=== PATIENT | female | born 1935 | race Caucasian/White ===

== ENCOUNTER 2018-01-21 11:12 | Emergency (ER) | payer OTHER, SELFPAY ==
--- NOTE | 2018-01-21 11:19 | DI.RAD.S_ITS ---
PROCEDURE: XR WRIST RT MIN 3V INDICATIONS: pain. denies injury TECHNIQUE: 4 views of the wrist were acquired. COMPARISON: None. FINDINGS: Bones: The bone mineralization is diffusely decreased. There is no displaced fracture or dislocation. Prominent degenerative changes of the wrist are most pronounced involving the basal joint of the thumb. Intra-articular joint body within the distal radioulnar joint appears to be present. Soft tissues: No suspicious soft tissue calcifications. IMPRESSION: 1. No acute fracture of the right wrist. 2. Prominent degenerative changes of the wrist. Dictated by: Jean Krishna M.D. on 01/21/2018 at 10:53 Approved by: Jean Krishna M.D. on 01/21/2018 at 10:54
[2018-01-21 11:20] VITALS: PULSE 73; RESP 15; TEMP 36.6; O2SAT 99; BMI 25.2
--- NOTE | 2018-01-21 13:33 | ED_ITS ---
HPI - Extremity Injury (Upper) <NEETU Reddy-BC - Last Filed: 01/21/18 23:00> General Chief Complaint: Extremity Injury, Upper Stated Complaint: RIGHT ARM PAIN Time Seen by Provider: 01/21/18 14:00 Source: patient Mode of arrival: ambulatory Limitations: no limitations History of Present Illness HPI narrative: Patient is slightly stated that she came to the emergency department for right wrist pain. She states she believes it is from the computer. She is concerned about carpal tunnel syndrome. She says that moving her wrist hurts, that hurts to press it. She does complain of some weird sensation in her middle finger of her right hand. She denies any trauma. Patient then brought up the fact that she felt really weak and dizzy earlier, with some nausea. She states she called her primary care office who suggested she take aspirin and to be evaluated in the emergency department. She denied any chest pain, shortness of breath, fever, vomiting, diarrhea. She states she no longer feels weak and dizzy. She denies any fevers. She denies any confusion or slurred speech. Her states she is acting normally. Related Data Home Medications Medication Instructions Recorded Confirmed loratadine [Claritin] 10 mg PO QDAYP PRN #0 02/25/17 Previous Rx's Medication Instructions Recorded fluticasone 1 spray INTRANASAL BID #16 gm 06/19/16 terbinafine HCl [Lamisil AT] 1 kamaljit TOPICAL Q DAY #12 gm 04/08/17 terbinafine HCl [Lamisil] 250 mg PO QDAY #90 tab 04/08/17 Allergies Allergy/AdvReac Type Severity Reaction Status Date / Time Sulfa (Sulfonamide Allergy Unknown Verified 01/21/18 11:20 Antibiotics) Review of Systems <NEETU Reddy-BC - Last Filed: 01/21/18 23:00> Review of Systems GENERAL: Denies chills, fatigue, malaise, fever, sweats. HEENT: Denies sinus pain, ear pain, sore throat, difficulty swallowing, dizziness. RESPIRATORY: Denies dyspnea, cough, wheezing, hemoptysis, sputum. CARDIOVASCULAR: Denies chest pain, palpitations, orthopnea, edema, GASTROINTESTINAL: See HPI : Denies dysuria, frequency, incontinence, hematuria, urinary retention. MUSCULOSKELETAL: See HPI SKIN: Denies rash, skin lesions, or other NEUROLOGIC: See HPI PSYCHIATRIC: No concerning psychosocial issues. 12 point review of systems is negative except for those stated above Exam <KERRIE ReddyBC - Last Filed: 01/21/18 23:00> Narrative Exam Narrative: GENERAL: This is a well-nourished, well-developed patient, lying on stretcher the at bedside HEAD: Atraumatic. Normocephalic. No temporal or scalp tenderness. EYES: Pupils equal round and reactive. Extraocular motions intact. No scleral icterus. No injection or drainage. ENT: Nose without bleeding, purulent drainage or septal hematoma. Throat without erythema, tonsillar hypertrophy or exudate. Uvula midline. Airway patent. NECK: Trachea midline. No JVD or lymphadenopathy. Supple, nontender, no meningeal signs. CARDIOVASCULAR: Regular rate and rhythm without murmurs, gallops, or rubs. RESPIRATORY: Clear to auscultation. Breath sounds equal bilaterally. No wheezes , rales, or rhonchi. GASTROINTESTINAL: Abdomen soft, non-tender, nondistended. No hepato-splenomegaly , or palpable masses. No guarding. EXTREMITIES: Right wrist pain to palpation. Patient has pain flexing and extending wrist. Right radial pulse intact. Patient is unable to perform test for Phalen's sign and states it hurts too much to hold her hand up. BACK: Nontender without deformity or crepitance. No flank tenderness. NEURO: AOx3. No slurred speech. Cranial nerves grossly intact. Strength equal upper and lower extremities bilaterally. Using all extremities equally. SKIN: No rash or erythema. No erythema ecchymosis or wound noted right wrist. Initial Vital Signs Initial Vital Signs: Vital Signs Temperature 97.9 F 01/21/18 11:20 Pulse Rate 73 01/21/18 11:20 Respiratory Rate 15 01/21/18 11:20 Pulse Oximetry 99 01/21/18 11:20 <Marie Rodriguez DO - Last Filed: 01/22/18 08:42> Initial Vital Signs Initial Vital Signs: Vital Signs Temperature 97.9 F 01/21/18 11:20 Pulse Rate 73 01/21/18 11:20 Respiratory Rate 15 01/21/18 11:20 Pulse Oximetry 99 01/21/18 11:20 Course <KERRIE ReddyBC - Last Filed: 01/21/18 23:00> Additional Information: I checked on the patient several times throughout her emergency department stay. Patient appeared very upset that I could not perform further imaging of her wrist in the emergency department. Orders Ordered: Discontinued Medications Sodium Chloride (Normal Saline 0.9%) 1,000 mls @ 150 mls/hr IV CONT INNA Last Admin: 01/21/18 14:53 Dose: 150 mls/hr Vital Signs - 8 hr 01/21/18 11:20 01/21/18 13:50 Temperature 97.9 F Pulse Rate 73 78 Respiratory Rate 15 Blood Pressure [Left Arm] 134/80 Pulse Oximetry 99 <Marie Rodriguez DO - Last Filed: 01/22/18 08:42> Orders Ordered: Discontinued Medications Sodium Chloride (Normal Saline 0.9%) 1,000 mls @ 150 mls/hr IV CONT INNA Last Admin: 01/21/18 14:53 Dose: 150 mls/hr Vital Signs - 8 hr 01/21/18 11:20 01/21/18 13:50 Temperature 97.9 F Pulse Rate 73 78 Respiratory Rate 15 Blood Pressure [Left Arm] 134/80 Pulse Oximetry 99 MDM - Extremity Injury (Upper) <KERRIE ReddyBC - Last Filed: 01/21/18 23:00> Differential Diagnosis Differential diagnosis: Likely sprain and strain of wrist and fracture of wrist Lab Data Result diagrams: 01/21/18 14:45 01/21/18 14:45 Lab Results 01/21/18 01/21/18 01/21/18 Range/Units 14:45 14:45 14:45 WBC 10.7 (4.5-11.0) X10^3/uL RBC 4.44 (4.0-5.2) X10^6/uL Hgb 13.5 (12.0-16.0) g/dL Hct 40.2 (36-46) % MCV 90.6 (80-100) fL MCH 30.3 (26-34) PG MCHC 33.5 (30-36) % RDW 14.5 (11.6-14.8) % Plt Count 182 (150-400) X10^3/uL Neut % (Auto) 79.2 H (50-75) % Lymph % (Auto) 14.0 L (25-40) % [place] % (Auto) 5.1 (3-14) % Eos % (Auto) 0.5 L (2-4) % Baso % (Auto) 1.2 (0-2) % Neut # (Auto) 8400 H (4051-6042) /uL PT 10.8 (10.1-12.7) SECONDS INR 1.0 (0.9-1.3) Sodium 146 H (137-145) mmol/L Potassium 4.2 (3.4-5.1) mmol/L Chloride 108 H (98-107) mmol/L Carbon Dioxide 28 (22-32) mmol/L BUN 15 (7-17) mg/dL Creatinine 0.60 (0.52-1.04) mg/dL Estimated GFR > 60.0 (>60) mL/min BUN/Creatinine Ratio 25.0 H (6-22) Glucose 116 H (80-110) mg/dL Calcium 9.4 (8.4-10.2) mg/dL Magnesium 2.3 (1.6-2.3) mg/dL Total Bilirubin 0.6 (0.2-1.3) mg/dL AST 20 (14-36) IU/L ALT 20 (9-52) IU/L Alkaline Phosphatase 63 (38-126) U/L Total Creatine Kinase 44 (30-135) U/L Troponin I < 0.012 (0.01-0.034) ng/mL Total Protein 7.3 (6.3-8.2) g/dL Albumin 4.2 (3.5-5.0) g/dL Globulin 3.1 (1.7-4.1) g/dL Albumin/Globulin Ratio 1.4 (1.0-2.8) 01/21/18 Range/Units 17:27 WBC (4.5-11.0) X10^3/uL RBC (4.0-5.2) X10^6/uL Hgb (12.0-16.0) g/dL Hct (36-46) % MCV (80-100) fL MCH (26-34) PG MCHC (30-36) % RDW (11.6-14.8) % Plt Count (150-400) X10^3/uL Neut % (Auto) (50-75) % Lymph % (Auto) (25-40) % [place] % (Auto) (3-14) % Eos % (Auto) (2-4) % Baso % (Auto) (0-2) % Neut # (Auto) (9059-1296) /uL PT (10.1-12.7) SECONDS INR (0.9-1.3) Sodium (137-145) mmol/L Potassium (3.4-5.1) mmol/L Chloride (98-107) mmol/L Carbon Dioxide (22-32) mmol/L BUN (7-17) mg/dL Creatinine (0.52-1.04) mg/dL Estimated GFR (>60) mL/min BUN/Creatinine Ratio (6-22) Glucose (80-110) mg/dL Calcium (8.4-10.2) mg/dL Magnesium (1.6-2.3) mg/dL Total Bilirubin (0.2-1.3) mg/dL AST (14-36) IU/L ALT (9-52) IU/L Alkaline Phosphatase (38-126) U/L Total Creatine Kinase (30-135) U/L Troponin I < 0.012 (0.01-0.034) ng/mL Total Protein (6.3-8.2) g/dL Albumin (3.5-5.0) g/dL Globulin (1.7-4.1) g/dL Albumin/Globulin Ratio (1.0-2.8) Imaging Data wrist xray: Radiologist's impression: [address] [address] XRay Report Signed Patient: Jossy Arcos MR#: [id number] : 1935 Acct:[id number] Age/Sex: 82 / F Date of Service: 01/21/18 Loc: ED Accession Number: [id number] Procedure: XR wrist RT min 3V Ordering Provider: Marie Rodriguez D.O. PROCEDURE: XR WRIST RT MIN 3V INDICATIONS: pain. denies injury TECHNIQUE: 4 views of the wrist were acquired. COMPARISON: None. FINDINGS: Bones: The bone mineralization is diffusely decreased. There is no displaced fracture or dislocation. Prominent degenerative changes of the wrist are most pronounced involving the basal joint of the thumb. Intra-articular joint body within the distal radioulnar joint appears to be present. Soft tissues: No suspicious soft tissue calcifications. IMPRESSION: 1. No acute fracture of the right wrist. 2. Prominent degenerative changes of the wrist. Dictated by: Jean Krishna M.D. on 01/21/2018 at 10:53 Approved by: Jean Krishna M.D. on 01/21/2018 at 10:54 CT scan - head: Radiologist's impression: [place] [address] CT Scan Report Signed Patient: Jossy Arcos MR#: [id number] : 1935 Acct:[id number] Age/Sex: 82 / F Date of Service: 01/21/18 Loc: ED Accession Number: [id number] Procedure: CT head/brain wo con [facility] CT HEAD/BRAIN WO CON INDICATIONS: severe dizziness TECHNIQUE: Noncontrast 4.5 mm thick angled axial sections acquired from the foramen magnum to the vertex, with coronal and sagittal reformats. For radiation dose reduction, the following was used: automated exposure control, adjustment of mA and/or kV according to patient size. COMPARISON: None. FINDINGS: Image quality: Excellent. CSF spaces: Basal cisterns are patent. No extra-axial fluid collections. The ventricles are symmetric in size and shape. There is [id number] cerebral volume loss, with resultant ventricular and sulcal prominence. Brain: No intracranial hemorrhage, mass, or mass effect. There are subcortical , periventricular and deep white matter hypodensities consistent with mild-to- moderate chronic small vessel ischemic changes. There is intracranial internal carotid artery atherosclerosis. Skull and face: Calvarium and visualized facial bones appear intact, without suspicious lesions. Sinuses: Visualized sinuses and mastoids are clear. IMPRESSION: 1. No acute intracranial abnormality. 2. Mild to moderate chronic white matter small vessel ischemic changes and cerebral volume loss. Dictated by: Manjeet Kunz M.D. on 01/21/2018 at 14:07 Approved by: Manjeet Kunz M.D. on 01/21/2018 at 14:26 ECG Data Attestation: I personally reviewed and interpreted this ECG as follows: Interpretation: Sinus rhythm. Heart rate 71. No ectopy noted. No ST elevation or depression. MDM Narrative Medical decision making narrative: Patient presented with chief complaint of wrist pain. She also brought up an episode of dizziness weakness earlier today. Her x-ray of her wrist show no fracture. Thus she had a thorough set of lab work done including CBC, CMP, and 2 sets of troponins. Everything came back grossly within normal limits. I did an EKG to evaluate her cardiac function head CT due to her weakness and dizziness earlier. These came back normal. I wonder if her dizziness earlier was due to the pain of her wrist, or possible vasovagal reaction due to a hot shower. Her x-ray of her wrist illustrated degenerative changes. It is difficult to evaluate for carpal tunnel as she does not tolerate bedside evaluations for it. We attempted to place her in a brace, though she took it off due to discomfort. Her descriptions of the symptoms are vague. I encouraged rest eyes compression and elevation. I discussed follow up with her primary care provider for further workup. I discussed at length with the patient follow up if worsening, no improvement, any acute concerns such as concern for stroke or heart attack. Patient had no questions or concerns upon discharge and ambulated steadily to the exit <Marie Rodriguez, DO - Last Filed: 01/22/18 08:42> Lab Data Lab Results 01/21/18 01/21/18 01/21/18 Range/Units 14:45 14:45 14:45 WBC 10.7 (4.5-11.0) X10^3/uL RBC 4.44 (4.0-5.2) X10^6/uL Hgb 13.5 (12.0-16.0) g/dL Hct 40.2 (36-46) % MCV 90.6 (80-100) fL MCH 30.3 (26-34) PG MCHC 33.5 (30-36) % RDW 14.5 (11.6-14.8) % Plt Count 182 (150-400) X10^3/uL Neut % (Auto) 79.2 H (50-75) % Lymph % (Auto) 14.0 L (25-40) % [place] % (Auto) 5.1 (3-14) % Eos % (Auto) 0.5 L (2-4) % Baso % (Auto) 1.2 (0-2) % Neut # (Auto) 8400 H (1618-6316) /uL PT 10.8 (10.1-12.7) SECONDS INR 1.0 (0.9-1.3) Sodium 146 H (137-145) mmol/L Potassium 4.2 (3.4-5.1) mmol/L Chloride 108 H (98-107) mmol/L Carbon Dioxide 28 (22-32) mmol/L BUN 15 (7-17) mg/dL Creatinine 0.60 (0.52-1.04) mg/dL Estimated GFR > 60.0 (>60) mL/min BUN/Creatinine Ratio 25.0 H (6-22) Glucose 116 H (80-110) mg/dL Calcium 9.4 (8.4-10.2) mg/dL Magnesium 2.3 (1.6-2.3) mg/dL Total Bilirubin 0.6 (0.2-1.3) mg/dL AST 20 (14-36) IU/L ALT 20 (9-52) IU/L Alkaline Phosphatase 63 (38-126) U/L Total Creatine Kinase 44 (30-135) U/L Troponin I < 0.012 (0.01-0.034) ng/mL Total Protein 7.3 (6.3-8.2) g/dL Albumin 4.2 (3.5-5.0) g/dL Globulin 3.1 (1.7-4.1) g/dL Albumin/Globulin Ratio 1.4 (1.0-2.8) 01/21/18 Range/Units 17:27 WBC (4.5-11.0) X10^3/uL RBC (4.0-5.2) X10^6/uL Hgb (12.0-16.0) g/dL Hct (36-46) % MCV (80-100) fL MCH (26-34) PG MCHC (30-36) % RDW (11.6-14.8) % Plt Count (150-400) X10^3/uL Neut % (Auto) (50-75) % Lymph % (Auto) (25-40) % [place] % (Auto) (3-14) % Eos % (Auto) (2-4) % Baso % (Auto) (0-2) % Neut # (Auto) (1503-7894) /uL PT (10.1-12.7) SECONDS INR (0.9-1.3) Sodium (137-145) mmol/L Potassium (3.4-5.1) mmol/L Chloride (98-107) mmol/L Carbon Dioxide (22-32) mmol/L BUN (7-17) mg/dL Creatinine (0.52-1.04) mg/dL Estimated GFR (>60) mL/min BUN/Creatinine Ratio (6-22) Glucose (80-110) mg/dL Calcium (8.4-10.2) mg/dL Magnesium (1.6-2.3) mg/dL Total Bilirubin (0.2-1.3) mg/dL AST (14-36) IU/L ALT (9-52) IU/L Alkaline Phosphatase (38-126) U/L Total Creatine Kinase (30-135) U/L Troponin I < 0.012 (0.01-0.034) ng/mL Total Protein (6.3-8.2) g/dL Albumin (3.5-5.0) g/dL Globulin (1.7-4.1) g/dL Albumin/Globulin Ratio (1.0-2.8) Discharge Plan Departure Patient Disposition: Home Clinical Impression: Acute wrist pain, Weakness Discharge Date/Time: 01/21/18 18:41 Interventions: ED Discharge Assessment Last Done: 01/21/18 18:40 Instructions: How To Perform RICE (Rest, Ice, Compress, Elevate), DI for Wrist Pain, DI for Dizziness-Nonvertigo Activity Restrictions/Additional Instructions: I would like you to follow up with primary care provider in the next few days. All of your lab work came back good today. Your electrolytes are good. Your heart enzymes came back good twice. Your head CT came back with no acute concerns. Regarding her wrist, I would like you to use rest ice compression and elevation. Your x-ray came back negative for any acute fractures. 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 I would like you to use [id number] pain medication as needed and able. Please follow-up with the primary care provider for worsening or no improvement. Come back to the emergency department immediately for any concerns of stroke or heart attack. Prescriptions: No Action fluticasone 16 GM spray,suspension 1 spray Intranasal BID Qty: 16 RF: 12 loratadine [Claritin] 10 MG tablet 10 mg PO QDAYP PRNQty: 0 RF: 0 terbinafine HCl [Lamisil] 250 MG tablet 250 mg PO QDAY Qty: 90 RF: 0 terbinafine HCl [Lamisil AT] 1 % cream 1 kamaljit Topical Q DAY Qty: 12 RF: 0 <Marie Rodriguez, - Last Filed: 01/22/18 08:42> Cosign ED Attending Cosignature Attestation: I was immediately available in the department for consultation. Documentation has been reviewed. I agree with assessment and plan.
[2018-01-21 13:50] VITALS: BP 134/80; PULSE 78
--- NOTE | 2018-01-21 14:20 | DI.CT.S_ITS ---
PROCEDURE: CT HEAD/BRAIN WO CON INDICATIONS: severe dizziness TECHNIQUE: Noncontrast 4.5 mm thick angled axial sections acquired from the foramen magnum to the vertex, with coronal and sagittal reformats. For radiation dose reduction, the following was used: automated exposure control, adjustment of mA and/or kV according to patient size. COMPARISON: None. FINDINGS: Image quality: Excellent. CSF spaces: Basal cisterns are patent. No extra-axial fluid collections. The ventricles are symmetric in size and shape. There is [id number] cerebral volume loss, with resultant ventricular and sulcal prominence. Brain: No intracranial hemorrhage, mass, or mass effect. There are subcortical, periventricular and deep white matter hypodensities consistent with [id number] chronic small vessel ischemic changes. There is intracranial internal carotid artery atherosclerosis. Skull and face: Calvarium and visualized facial bones appear intact, without suspicious lesions. Sinuses: Visualized sinuses and mastoids are clear. IMPRESSION: 1. No acute intracranial abnormality. 2. Mild to moderate chronic white matter small vessel ischemic changes and cerebral volume loss. Dictated by: Manjeet Kunz M.D. on 01/21/2018 at 14:07 Approved by: Manjeet Kuzn M.D. on 01/21/2018 at 14:26
[2018-01-21] MEDS: SODIUM CHLORIDE 0.9% 1,000 ML 150 ML IV (14:53)
[2018-01-21 14:56] LABS: Add Manual Diff / Slide Review NO; Basophils Percent Auto 1.2 % (0-2); Eosinophils Percent Auto 0.5 % (2-4); Hematocrit 40.2 % (36-46); Hemoglobin 13.5 g/dL (12.0-16.0); Mean Corpuscular HGB Conc 33.5 % (30-36); Mean Corpuscular Hemoglobin 30.3 PG (26-34); Mean Corpuscular Volume 90.6 fL (80-100); Monocytes Percent Auto 5.1 % (3-14); Neutrophils Absolute Auto 8400 /uL (3000-5900); Neutrophils Percent Auto 79.2 % (50-75); Platelet Count 182 X10^3/uL (150-400); Red Blood Cell Count 4.44 X10^6/uL (4.0-5.2); Red Cell Distribution Width 14.5 % (11.6-14.8); White Blood Cell Count 10.7 X10^3/uL (4.5-11.0)
[2018-01-21 15:03] LABS: Prothrombin Time 10.8 SECONDS (10.1-12.7)
[2018-01-21 15:08] LABS: Alanine Aminotransferase 20 IU/L (9-52); Albumin 4.2 g/dL (3.5-5.0); Albumin Globulin Ratio 1.4 (1.0-2.8); Alkaline Phosphatase 63 U/L (38-126); Aspartate Aminotransferase 20 IU/L (14-36); Bilirubin Total 0.6 mg/dL (0.2-1.3); Blood Urea Nitrogen 15 mg/dL (7-17); Calcium 9.4 mg/dL (8.4-10.2); Carbon Dioxide 28 mmol/L (22-32); Chloride 108 mmol/L (98-107); Creatine Kinase 44 U/L (30-135); Estimated Glomerular Filt Rate > 60.0 mL/min (>60); Globulin 3.1 g/dL (1.7-4.1); Glucose 116 mg/dL (80-110); HEMOLYSIS 43 (0-50); Magnesium 2.3 mg/dL (1.6-2.3); Potassium 4.2 mmol/L (3.4-5.1); Sodium 146 mmol/L (137-145); Total Protein 7.3 g/dL (6.3-8.2)
[2018-01-21 15:25] LABS: Troponin I < 0.012 ng/mL (0.01-0.034)
[2018-01-21 18:06] LABS: Troponin I < 0.012 ng/mL (0.01-0.034)
--- NOTE | 2018-02-08 07:29 | PC.NURSE ---
LATE NOTE: iv fluid infusion stop time 1830 600ml infused.
== END 2018-01-21 18:41 | disposition home or self-care (01) ==
PROVIDERS: Emergency Provider Nurse Practitioner Family; PCP Family Medicine
DX: M25.531 Pain in right wrist (principal); R53.1 Weakness; R42 Dizziness and giddiness
CPT/HCPCS: 70450; 73110; 80053; 82550; 82553; 83735; 84484; 85025; 85610; 93005; 93010; 96360; 96361; 99282; 99285

== ENCOUNTER → 2018-09-08 11:02 | Outpatient (CLI) | payer OTHER, SELFPAY ==
[2018-09-08 11:54] LABS: Add Manual Diff / Slide Review NO; Basophils Absolute Auto 100 /uL (0-100); Basophils Percent Auto 0.8 % (0-2); Eosinophils Absolute Auto 100 /uL (0-450); Eosinophils Percent Auto 1.1 % (2-4); Hemoglobin 13.4 g/dL (12.0-16.0); Lymphocytes Absolute Auto 1900 /uL (1100-4500); Lymphocytes Percent Auto 25.3 % (25-40); Mean Corpuscular HGB Conc 32.8 % (30-36); Mean Corpuscular Hemoglobin 29.6 PG (26-34); Mean Corpuscular Volume 90.5 fL (80-100); Monocytes Absolute Auto 500 /uL (0-900); Monocytes Percent Auto 6.2 % (3-14); Neutrophils Absolute Auto 5000 /uL (1500-7000); Neutrophils Percent Auto 66.6 % (50-75); Platelet Count 201 X10^3/uL (150-400); Red Blood Cell Count 4.53 X10^6/uL (4.0-5.2); Red Cell Distribution Width 14.3 % (11.6-14.8); White Blood Cell Count 7.5 X10^3/uL (4.5-11.0)
[2018-09-08 13:07] LABS: Vitamin B12 229 pg/mL (239-931)
== END ==
PROVIDERS: PCP Family Medicine; Visit Provider Nurse Practitioner
DX: R53.83 Other fatigue (principal)
CPT/HCPCS: 36415; 82607; 85025

== ENCOUNTER → 2018-10-18 12:01 | Outpatient (CLI) | payer OTHER, SELFPAY ==
[2018-10-18 14:13] LABS: Vitamin B12 404 pg/mL (239-931)
[2018-10-18 17:27] LABS: TSH w/ Reflex to FT4 0.77 uIU/mL (0.47-4.68)
== END ==
PROVIDERS: PCP Nurse Practitioner; Visit Provider Nurse Practitioner
DX: R53.83 Other fatigue (principal)
CPT/HCPCS: 36415; 82607; 84443

== ENCOUNTER → 2019-01-16 12:15 | Outpatient (CLI) | payer OTHER, SELFPAY ==
[2019-01-16 12:42] LABS: Add Manual Diff / Slide Review NO; Basophils Absolute Auto 100 /uL (0-100); Eosinophils Absolute Auto 100 /uL (0-450); Eosinophils Percent Auto 0.9 % (2-4); Hemoglobin 13.7 g/dL (12.0-16.0); Lymphocytes Absolute Auto 1900 /uL (1100-4500); Lymphocytes Percent Auto 26.3 % (25-40); Mean Corpuscular HGB Conc 33.5 % (30-36); Mean Corpuscular Hemoglobin 30.1 PG (26-34); Mean Corpuscular Volume 89.8 fL (80-100); Monocytes Absolute Auto 500 /uL (0-900); Monocytes Percent Auto 7.1 % (3-14); Neutrophils Absolute Auto 4700 /uL (1500-7000); Neutrophils Percent Auto 64.7 % (50-75); Platelet Count 203 X10^3/uL (150-400); Red Blood Cell Count 4.57 X10^6/uL (4.0-5.2); Red Cell Distribution Width 14.6 % (11.6-14.8); White Blood Cell Count 7.2 X10^3/uL (4.5-11.0)
[2019-01-16 12:51] LABS: Alanine Aminotransferase 13 IU/L (9-52); Albumin 4.3 g/dL (3.5-5.0); Albumin Globulin Ratio 1.5 (1.0-2.8); Alkaline Phosphatase 75 U/L (38-126); Aspartate Aminotransferase 15 IU/L (14-36); BUN Creatinine Ratio 21.4 (6-22); Bilirubin Total 0.6 mg/dL (0.2-1.3); Blood Urea Nitrogen 15 mg/dL (7-17); Calcium 9.6 mg/dL (8.4-10.2); Carbon Dioxide 27 mmol/L (22-32); Chloride 105 mmol/L (98-107); Estimated Glomerular Filt Rate > 60.0 mL/min (>60); Globulin 2.9 g/dL (1.7-4.1); Glucose 92 mg/dL (80-110); HEMOLYSIS < 15 (0-50); Potassium 4.8 mmol/L (3.4-5.1); Sodium 141 mmol/L (137-145); Total Protein 7.2 g/dL (6.3-8.2)
--- NOTE | 2019-01-16 13:32 | DI.CT.S_ITS ---
PROCEDURE: CT ABDOMEN PELVIS W CON INDICATIONS: H/O diverticulosis, colectomy TECHNIQUE: After the administration of intravenous contrast, 5 mm thick sections acquired from the diaphragm to the symphysis. 5 mm coronal and sagittal reformats were acquired. For radiation dose reduction, the following was used: automated exposure control, adjustment of mA and/or kV according to patient size. COMPARISON: [facility], CT, ABDOMEN/PELVIS WITH CONTRAST, 01/12/2017, 14:21. [facility], CT, ABDOMEN/PELVIS WITH CONTRAST, 07/18/2015, 12:26. FINDINGS: Image quality: Excellent. ABDOMEN: Lung bases: Lung bases are clear. Heart size is normal. Solid organs: Liver is normal in size and enhancement. Gallbladder appears normal. Biliary system is non dilated. Pancreas enhances normally. Spleen is normal in size and enhancement. No adrenal nodules. Kidneys demonstrate normal size and enhancement, without hydronephrosis. Peritoneum and bowel: Bowel loops demonstrate normal wall thickness and caliber. No free fluid or air. Nodes and vessels: No retroperitoneal or mesenteric adenopathy by size criteria. Aorta and inferior vena cava are normal in size. Miscellaneous: No ventral hernias. PELVIS: Genitourinary: Bladder wall thickness is normal. Miscellaneous: No inguinal hernias or adenopathy. Bones: No suspicious bony lesions. No vertebral body compression fractures. IMPRESSION: Mild diverticulosis left lower quadrant. No acute diverticulitis found. Source of reported left lower quadrant pain is not found. Dictated by: Cricket Varela M.D. on 01/16/2019 at 13:58 Approved by: Cricket Varela M.D. on 01/16/2019 at 13:58
== END ==
PROVIDERS: PCP Nurse Practitioner; Visit Provider Registered Nurse
DX: K57.90 Diverticulosis of intestine, part unspecified, without perforation or abscess without bleeding (principal); R10.84 Generalized abdominal pain
CPT/HCPCS: 36415; 74177; 80053; 85025; Q9967

== ENCOUNTER → 2019-02-08 15:28 | Outpatient (CLI) | payer OTHER, SELFPAY ==
--- NOTE | 2019-02-08 15:31 | DI.RAD.S_ITS ---
PROCEDURE: XR ABDOMEN 1V INDICATIONS: abdominal pain, nausea TECHNIQUE: One view of the abdomen acquired. COMPARISON: None. FINDINGS: Surgical changes and devices: None. Bowel: Bowel gas pattern is nonobstructive. Mild fecal stasis in the colon is seen. No gross free air. Soft tissues: No suspicious abdominal calcifications. Visualized solid organ contours appear normal in size. Bones: No suspicious bony lesions. IMPRESSION: Mild constipation. No gross free air. Dictated by: Tung Rutledge M.D. on 02/08/2019 at 16:18 Approved by: Tung Rutledge M.D. on 02/08/2019 at 16:19
== END ==
PROVIDERS: PCP Nurse Practitioner; Visit Provider Hospitalist
DX: R10.9 Unspecified abdominal pain (principal); K59.00 Constipation, unspecified
CPT/HCPCS: 74018

== ENCOUNTER 2019-02-15 09:37 | Emergency (ER) | payer OTHER, SELFPAY ==
[2019-02-15 09:54] VITALS: BP 148/68; PULSE 80; RESP 15; TEMP 36.5; O2SAT 98; BMI 24.7
--- NOTE | 2019-02-15 09:57 | ED_ITS ---
HPI - Abdominal Pain General Chief Complaint: Abdominal Pain Stated Complaint: nurse advised to come/pain at night/part blockage Time Seen by Provider: 02/15/19 09:56 Source: patient Mode of arrival: Ambulatory Limitations: no limitations History of Present Illness HPI narrative: Patient is an 84-year-old female presenting all upon request from a nursing hotline. She has had ongoing left upper quadrant pain for about 6 weeks. She has had bowel movements but says that they are becoming pencil thin. She feels nauseous at times no vomiting. The pain wakes her up at night. She was seen evaluated by her PCP last week she had an x-ray which showed mild constipation. She had a CT 01/16/2019 that showed mild diverticulosis. She was referred to General surgery for colonoscopy however they refused recommended she go to [facility]. Patient is very confused by the system she is wanting a colonoscopy today. The nursing hotline told her to come to the ER. She denies any worsening left sided pain she continues to have bowel movements with MiraLax she is not actively vomiting she is tolerating fluids she is afebrile. She is refusing any blood work or repeat CT. MD complaint: abdominal pain Onset (ago): week(s) (6) Related Data Home Medications Medication Instructions Recorded Confirmed loratadine [Claritin] 10 mg PO QDAYP PRN #0 02/25/17 02/15/19 cyanocobalamin (vitamin B-12) 2,500 mcg PO DAILY 01/16/19 02/15/19 2,500 mcg tablet naproxen sodium [Aleve] 220 mg PO BID PRN 02/15/19 02/15/19 polyethylene glycol 3350 [Miralax] 17 g PO DAILY 02/15/19 02/15/19 Previous Rx's Medication Instructions Recorded fluticasone propionate 1 spray INTRANASAL BID #16 gm 06/19/16 cyanocobalamin (vitamin B-12) 1,000 mcg IM QMONTH #1 ml 09/09/18 1,000 mcg/mL injection solution Allergies Allergy/AdvReac Type Severity Reaction Status Date / Time Sulfa (Sulfonamide Allergy Unknown Verified 02/15/19 09:54 Antibiotics) Review of Systems Review of Systems Narrative: GENERAL: Denies chills, fatigue, malaise, fever, sweats, travel HEENT: Denies sinus pain, ear pain, sore throat, difficulty swallowing, neck pain RESPIRATORY: Denies dyspnea, cough, wheezing, hemoptysis, sputum. CARDIOVASCULAR: Denies chest pain, palpitations, orthopnea, edema GASTROINTESTINAL: See HPI : Denies dysuria, frequency, incontinence, hematuria, urinary retention, flank pain. MUSCULOSKELETAL: Denies weakness, joint pain, or bony pain SKIN: No rash, no erythema, no pruritus NEUROLOGIC: Denies weakness, dizziness, headache, numbness, change in speech, confusion PSYCHIATRIC: No concerning psychosocial issues. 12 point review of systems is negative except for those stated above and HPI [facility]LY [facility] Medical History Acquired absence of other specified parts of digestive tract (Acute) Allergic rhinitis (Acute) Chicken pox (Resolved) Colon polyps (Chronic) Diverticular disease (Chronic) Family history of diabetes mellitus (Acute) Family history of malignant neoplasm of bladder (Acute) Family history of malignant neoplasm of trachea, bronchus and lung (Acute) Family history of other mental and behavioral disorders (Acute) History of recurrent ear infection (Chronic) Major depressive disorder, single episode (Acute) Measles (Resolved) Osteopenia (Chronic) Other migraine, not intractable, without status migrainosus (Acute) Ovarian cyst (Chronic) Personal history of other malignant neoplasm of large intestine (Acute) Seasonal allergies (Chronic) Vertigo (Chronic) Surgical History Anesthesia (Resolved) Broken nose (Resolved) Bunion (Resolved) Cataract extraction status of left eye (Acute) Cataract extraction status of right eye (Acute) History of cataract removal with insertion of prosthetic lens History of partial colectomy (Resolved ~2009) S/P hysterectomy (Resolved) Status post hysterectomy Family History Brother Age: 80 Cancer Father Cancer Mother Mental health problem Dementia Grandmother Diabetes mellitus Social History marital status: number of children: 2 Smoking Status: Never smoker alcohol intake: current substance use type: does not use Family History Brother Age: 80 Cancer Father Cancer Mother Mental health problem Dementia Grandmother Diabetes mellitus Social History (Reviewed 02/15/19 @ 10:39 by MALIK Lanza marital status: number of children: 2 Smoking Status: Never smoker alcohol intake: current substance use type: does not use Exam Initial Vital Signs Initial Vital Signs: Vital Signs Temperature 97.7 F 02/15/19 09:54 Pulse Rate 80 02/15/19 09:54 Respiratory Rate 15 02/15/19 09:54 Blood Pressure 148/68 H 02/15/19 09:54 Pulse Oximetry 98 02/15/19 09:54 GENERAL: Pleasant well-appearing [place] female and in no acute distress. HEENT: Head atraumatic,EOMI, pupils reactive, face symmetric, moist mucous membranes CARDIOVASCULAR: Regular rate and rhythm without murmurs, rubs or gallops. RESPIRATORY: Breath sounds equal bilaterally, no wheezes rales or rhonchi. ABDOMEN: Soft, minimal tenderness left upper quadrant no guarding no rebound no lower abdominal pain EXTREMITIES: Normal range of motion, no clubbing or edema. Neurovascularly intact NEUROLOGICAL: Alert and oriented x4.Normal gait and speech. Cranial nerves II through XII grossly intact. SKIN: Warm, dry, no laceration, no petechiae, no rashes or lesions. Course Orders Ordered: ED Orders 02/15/19 10:00 Urine Culture Stat Urine Microscopic Stat Vital Signs Vital signs: Vital Signs - 8 hr 02/15/19 09:54 Temperature 97.7 F Pulse Rate 80 Respiratory Rate 15 Blood Pressure 148/68 H Pulse Oximetry 98 MDM - Abdominal Pain Lab Data Labs: Lab Results 02/15/19 Range/Units 10:00 Urine RBC 0-1/hpf (0-5/HPF) Urine WBC 5-10/hpf H (0-5/HPF) Ur Squamous Epith Cells 1-5 /hpf (0-5/HPF) Urine Bacteria Many (>30) H (None) Ur Culture Indicated? Specimen cultured Point of care testing: Urine Dip Bedside Urine Glucose Negative Bedside Urine Bilirubin - Negative Bedside Urine Ketone - Negative Urine Specific [place] 1.015 Bedside Urine Occult Blood + Bedside Urine pH 6.0 Bedside Urine Protein - Negative Bedside Urine Urobilinogen - Negative Bedside Urine Nitrite - Negative Bedside Urine Leukocytes ++ 125 Esterase MDM Narrative Medical decision making narrative: I spoke with Dr. Katie Kam in regards to patient. She has seen a referral for [facility] she has put it through. Patient needs to wait. Patient continues to deny wanting any further workup in the emergency department. She would like to wait for colonoscopy. This time her abdomen is soft she has no acute symptoms and no acute abdomen. Discharge Plan Departure Patient Disposition: Home Clinical Impression: Abdominal pain Qualifiers: Abdominal location: left upper quadrant Qualified Code(s): R10.12 - Left upper quadrant pain Discharge Date/Time: 02/15/19 10:43 Instructions: DI for Abdominal Pain-Adult Activity Restrictions/Additional Instructions: *You have been diagnosed with abdominal pain *What to do: Expect to receive a phone call from [facility] for scheduling her colonoscopy. If you do not hear from them by Wednesday please call your PCP office *Continue to take medications as directed *Follow up with your primary care provider in 2-3 days *Return to ER if you should have increasing abdominal pain persistent vomiting, no bowel movement or any new, worsening or concerning symptoms Prescriptions: No Action fluticasone propionate 16 GM spray,suspension 1 spray Intranasal BID Qty: 16 RF: 12 loratadine [Claritin] 10 MG tablet 10 mg PO QDAYP PRN (Reason: Allergy Symptoms) Qty: 0 RF: 0 cyanocobalamin (vitamin B-12) 1,000 mcg/mL solution 1,000 mcg IM QMONTH Qty: 1 RF: 0 cyanocobalamin (vitamin B-12) 2,500 mcg tablet 2,500 mcg PO DAILY RF: 0 polyethylene glycol 3350 [Miralax] 17 gram Powder In Packet 17 g PO DAILY RF: 0 naproxen sodium [Aleve] 220 mg Tablet 220 mg PO BID PRN (Reason: pain) RF: 0 Referrals: Dinora Valentin ARNP [Primary Care Provider] - Katie Kam MD [Physician] -
[2019-02-15 10:13] LABS: Bacteria Urine Many (>30); Culture Indicated Urine Specimen Cultured; RBC Urine 0-1/HPF (0-5/HPF); Squamous Epithelial Cell Urine 1-5 /HPF (0-5/HPF); WBC Urine 5-10/HPF (0-5/HPF)
--- NOTE | 2019-02-15 10:41 | PC.NURSE ---
pt states she has an injection at 1030 in the hospital and does not want to wait for her discharge instructions. pt left prior to receiving discharge paper work.
== END 2019-02-15 10:43 | disposition home or self-care (01) ==
PROVIDERS: Emergency Provider Emergency Medicine; PCP Nurse Practitioner
DX: R10.12 Left upper quadrant pain (principal)
CPT/HCPCS: 81003; 81015; 87077; 87086; 87186; 99282

== ENCOUNTER 2019-02-19 09:54 | Emergency (ER) | payer OTHER, SELFPAY ==
[2019-02-19 10:05] VITALS: BP 141/62; PULSE 85; RESP 16; TEMP 36.8; O2SAT 95; BMI 23.9
[2019-02-19] MEDS: SODIUM CHLORIDE 0.9% 1,000 ML 1000 ML IV (10:45)
[2019-02-19 10:46] LABS: Add Manual Diff / Slide Review NO; Basophils Absolute Auto 0 /uL (0-100); Basophils Percent Auto 0.2 % (0-2); Eosinophils Absolute Auto 200 /uL (0-450); Eosinophils Percent Auto 1.5 % (2-4); Hematocrit 38.8 % (36-46); Hemoglobin 12.9 g/dL (12.0-16.0); Lymphocytes Absolute Auto 200 /uL (1100-4500); Mean Corpuscular HGB Conc 33.2 % (30-36); Mean Corpuscular Hemoglobin 29.8 PG (26-34); Mean Corpuscular Volume 89.7 fL (80-100); Monocytes Absolute Auto 300 /uL (0-900); Monocytes Percent Auto 2.4 % (3-14); Neutrophils Absolute Auto 10300 /uL (1500-7000); Neutrophils Percent Auto 93.9 % (50-75); Platelet Count 162 X10^3/uL (150-400); Red Blood Cell Count 4.32 X10^6/uL (4.0-5.2); Red Cell Distribution Width 14.3 % (11.6-14.8)
[2019-02-19 11:02] LABS: Alanine Aminotransferase 9 IU/L (9-52); Albumin 4.1 g/dL (3.5-5.0); Albumin Globulin Ratio 1.4 (1.0-2.8); Alkaline Phosphatase 76 U/L (38-126); Aspartate Aminotransferase 23 IU/L (14-36); BUN Creatinine Ratio 24.3 (6-22); Blood Urea Nitrogen 17 mg/dL (7-17); Calcium 9.2 mg/dL (8.4-10.2); Carbon Dioxide 25 mmol/L (22-32); Chloride 104 mmol/L (98-107); Estimated Glomerular Filt Rate > 60.0 mL/min (>60); Globulin 2.9 g/dL (1.7-4.1); Glucose 111 mg/dL (80-110); Lipase 42 U/L (23-300); Potassium 4.3 mmol/L (3.4-5.1); Sodium 139 mmol/L (137-145)
[2019-02-19 11:07] LABS: HEMOLYSIS 64 (0-50)
--- NOTE | 2019-02-19 11:13 | ED.NAVMDI ---
HPI - Nausea/Vomiting/Diarrhea General Chief complaint: Nausea/Vomiting/Diarrhea Stated complaint: Nausea, pale, hypotension Time Seen by Provider: 02/19/19 10:16 Source: patient and family Mode of arrival: Wheelchair Limitations: no limitations History of Present Illness HPI Narrative: The patient is an 84-year-old female who presents with pain all over and nausea. She was seen and evaluated here 4 days ago wanting a colonoscopy. At that time a urinalysis was done she did not have any UTI symptoms however her urine did grow E coli sensitive to Macrobid she was placed on Macrobid she took her 1st dose this morning which she said immediately start her pain all over she felt nauseous she did not vomit. She says he has had 3 bowel movements this morning she does not think that she had a blockage. However she has lower abdominal tenderness. She was doing well yesterday. She does have a chronic ongoing left upper quadrant pain. MD complaint: nausea and abdominal pain Related Data Home Medications Medication Instructions Recorded Confirmed loratadine [Claritin] 10 mg PO QDAYP PRN #0 02/25/17 02/15/19 cyanocobalamin (vitamin B-12) 2,500 mcg PO DAILY 01/16/19 02/15/19 2,500 mcg tablet naproxen sodium [Aleve] 220 mg PO BID PRN 02/15/19 02/15/19 polyethylene glycol 3350 [Miralax] 17 g PO DAILY 02/15/19 02/15/19 Previous Rx's Medication Instructions Recorded fluticasone propionate 1 spray INTRANASAL BID #16 gm 06/19/16 cyanocobalamin (vitamin B-12) 1,000 mcg IM QMONTH #1 ml 09/09/18 1,000 mcg/mL injection solution cephalexin [Keflex] 500 mg PO TID #15 cap 02/19/19 Allergies Allergy/AdvReac Type Severity Reaction Status Date / Time Sulfa (Sulfonamide Allergy Unknown Verified 02/15/19 09:54 Antibiotics) Review of Systems Review of Systems Narrative: GENERAL: Denies chills, fatigue, malaise, fever, sweats, travel HEENT: Denies sinus pain, ear pain, sore throat, difficulty swallowing, neck pain RESPIRATORY: Denies dyspnea, cough, wheezing, hemoptysis, sputum. CARDIOVASCULAR: Denies chest pain, palpitations, orthopnea, edema GASTROINTESTINAL: See HPI : Denies dysuria, frequency, incontinence, hematuria, urinary retention, flank pain. MUSCULOSKELETAL: Denies weakness, joint pain, or bony pain SKIN: No rash, no erythema, no pruritus NEUROLOGIC: Denies weakness, dizziness, headache, numbness, change in speech, confusion PSYCHIATRIC: No concerning psychosocial issues. 12 point review of systems is negative except for those stated above and HPI [facility]LY [facility] Medical History Acquired absence of other specified parts of digestive tract (Acute) Allergic rhinitis (Acute) Chicken pox (Resolved) Colon polyps (Chronic) Diverticular disease (Chronic) Family history of diabetes mellitus (Acute) Family history of malignant neoplasm of bladder (Acute) Family history of malignant neoplasm of trachea, bronchus and lung (Acute) Family history of other mental and behavioral disorders (Acute) History of recurrent ear infection (Chronic) Major depressive disorder, single episode (Acute) Measles (Resolved) Osteopenia (Chronic) Other migraine, not intractable, without status migrainosus (Acute) Ovarian cyst (Chronic) Personal history of other malignant neoplasm of large intestine (Acute) Seasonal allergies (Chronic) Vertigo (Chronic) Surgical History Anesthesia (Resolved) Broken nose (Resolved) Bunion (Resolved) Cataract extraction status of left eye (Acute) Cataract extraction status of right eye (Acute) History of cataract removal with insertion of prosthetic lens History of partial colectomy (Resolved ~2009) S/P hysterectomy (Resolved) Status post hysterectomy Family History Brother Age: 80 Cancer Father Cancer Mother Mental health problem Dementia Grandmother Diabetes mellitus Social History marital status: number of children: 2 Smoking Status: Never smoker alcohol intake: current substance use type: does not use Family History Brother Age: 80 Cancer Father Cancer Mother Mental health problem Dementia Grandmother Diabetes mellitus Social History marital status: number of children: 2 Smoking Status: Never smoker alcohol intake: current substance use type: does not use Exam Initial Vital Signs Initial Vital Signs: Vital Signs Temperature 98.3 F 02/19/19 10:05 Pulse Rate 85 02/19/19 10:05 Respiratory Rate 16 02/19/19 10:05 Blood Pressure 141/62 H 02/19/19 10:05 Pulse Oximetry 95 02/19/19 10:05 GENERAL: Slightly pale alert and oriented x4 female and in no acute distress. HEENT: Head atraumatic,EOMI, pupils reactive, face symmetric CARDIOVASCULAR: Regular rate and rhythm without murmurs, rubs or gallops. RESPIRATORY: Breath sounds equal bilaterally, no wheezes rales or rhonchi. ABDOMEN: Soft tender all across lower abdomen more on left than right EXTREMITIES: Normal range of motion, no clubbing or edema. Neurovascularly intact NEUROLOGICAL: Alert and oriented x4.Normal gait and speech. Cranial nerves II through XII grossly intact. SKIN: Warm, dry, no laceration, no petechiae, no rashes or lesions. Course Orders Ordered: ED Orders 02/19/19 09:59 Urinalysis and Microscopic Stat Urine Culture Stat 02/19/19 10:40 Complete Blood Count AUTO DIFF Stat Comprehensive Metabolic Panel Stat Lipase Stat 02/19/19 11:22 XR acute abdomen series Stat Discontinued Medications Acetaminophen (Tylenol) 975 mg PO NOW ONE Stop: 02/19/19 12:09 Last Admin: 02/19/19 12:21 Dose: 975 mg Documented by: JUAN C Sodium Chloride (Normal Saline 0.9%) 1,000 mls @ 1,000 mls/hr IV CONT INNA Last Infusion: 02/19/19 12:41 Dose: 0 mls/hr Documented by: Admin: 02/19/19 10:45 Dose: 1,000 mls/hr Documented by: SCANAPO Vital Signs Vital signs: Vital Signs - 8 hr 02/19/19 10:05 02/19/19 11:31 02/19/19 12:33 Temperature 98.3 F Pulse Rate 85 90 88 Respiratory Rate 16 24 24 Blood Pressure 141/62 H Blood Pressure [Right Arm] 121/67 130/49 L Pulse Oximetry 95 94 95 MDM - Nausea/Vomiting/Diarrhea Lab Data Attestation: I reviewed the patient's lab results. Result diagrams: 02/19/19 10:40 02/19/19 10:40 Labs: Lab Results 02/19/19 02/19/19 02/19/19 Range/Units 09:59 10:40 10:40 WBC 11.0 (4.5-11.0) X10^3/uL RBC 4.32 (4.0-5.2) X10^6/uL Hgb 12.9 (12.0-16.0) g/dL Hct 38.8 (36-46) % MCV 89.7 (80-100) fL MCH 29.8 (26-34) PG MCHC 33.2 (30-36) % RDW 14.3 (11.6-14.8) % Plt Count 162 (150-400) X10^3/uL Neut % (Auto) 93.9 H (50-75) % Lymph % (Auto) 2.0 L (25-40) % [place] % (Auto) 2.4 L (3-14) % Eos % (Auto) 1.5 L (2-4) % Baso % (Auto) 0.2 (0-2) % Neut # (Auto) 07193 H (1559-7325) /uL Lymph # (Auto) 200 L (3759-2986) /uL [place] # (Auto) 300 (0-900) /uL Eos # (Auto) 200 (0-450) /uL Baso # (Auto) 0 (0-100) /uL Sodium 139 (137-145) mmol/L Potassium 4.3 (3.4-5.1) mmol/L Chloride 104 (98-107) mmol/L Carbon Dioxide 25 (22-32) mmol/L BUN 17 (7-17) mg/dL Creatinine 0.70 (0.52-1.04) mg/dL Estimated GFR > 60.0 (>60) mL/min BUN/Creatinine Ratio 24.3 H (6-22) Glucose 111 H (80-110) mg/dL Calcium 9.2 (8.4-10.2) mg/dL Total Bilirubin 1.0 (0.2-1.3) mg/dL AST 23 (14-36) IU/L ALT 9 (9-52) IU/L Alkaline Phosphatase 76 (38-126) U/L Total Protein 7.0 (6.3-8.2) g/dL Albumin 4.1 (3.5-5.0) g/dL Globulin 2.9 (1.7-4.1) g/dL Albumin/Globulin Ratio 1.4 (1.0-2.8) Lipase 42 (23-300) U/L Urine Color Yellow Urine Appearance Clear Urine pH 7.5 (4.5-8.0) Ur Specific [place] 1.010 (1.000-1.035) Urine Protein Negative (Negative) Urine Glucose (UA) Negative (Negative) g/dL Urine Ketones 1+ H (NEGATIVE) Urine Occult Blood Trace-lysed (Negative) Urine Nitrate Negative (Negative) Urine Bilirubin Negative (NEGATIVE) Urine Urobilinogen 0.2 (0.2) E.U./dL Ur Leukocyte Esterase 1+ H (NEGATIVE) Urine RBC 0-1/hpf (0-5/HPF) Urine WBC 5-10/hpf H (0-5/HPF) Ur Squamous Epith Cells 1-5 /hpf (0-5/HPF) Urine Bacteria Occasional (0-1) D (None) Ur Culture Indicated? Specimen cultured Imaging Data Abdominal x-ray: Radiologist's impression: PROCEDURE: XR ACUTE ABDOMEN SERIES INDICATIONS: ab pain nausea TECHNIQUE: One view chest and two views of the abdomen were acquired. COMPARISON: [facility], CT, ABDOMEN/PELVIS WITH CONTRAST, 01/12/2017, 14:21. [facility], CR, CHEST 1 VIEW, 07/08/2011, 23:42. FINDINGS: Surgical changes and devices: None. Chest: There are linear opacities in the left lung base likely representing scarring or atelectasis. Heart size is normal. No pleural effusions. No pneumoperitoneum. Abdomen: Bowel gas pattern is within normal limits with intraluminal gas demonstrated in small and large bowel loops. No abnormal dilatation or air-fluid levels. No suspicious calcifications. Bones: No suspicious bony lesions. IMPRESSION: 1. No acute intra-abdominal radiographic abnormality. Dictated by: Manjeet Kunz M.D. on 02/19/2019 at 11:00 ECG Data Attestation: I personally reviewed and interpreted this ECG as follows: Prior ECG tracings: available for review Interpretation: Normal sinus rhythm rate [address] changes no T-wave inversions p.r. interval 161 Q are S 79 QTC 371 MDM Narrative Medical decision making narrative: The patient does not want a CT scan with IV contrast, she of she had urinary incontinence the last time and she refuses to have that again. He said that we could help with that. She is agreeable to in x-ray. X-ray is negative for any sort of obstruction. She is ambulatory she overall feels better. Possible reaction to Macrobid she does have E coli in her urine I will change her to Keflex. Overall does not appear septic. She had actually denies UTI symptoms. Discharge Plan Departure Patient Disposition: Home Clinical Impression: Acute UTI Medication reaction Qualifiers: Encounter type: initial encounter Qualified Code(s): T50.905A - Adverse effect of unspecified drugs, medicaments and biological substances, initial encounter Discharge Date/Time: 02/19/19 12:48 Instructions: DI for Urinary Tract Infection (UTI), DI for Adverse Drug Reaction -- Other Activity Restrictions/Additional Instructions: *You have been diagnosed with medication reaction, UTI *What to do: He still need a colonoscopy and may require repeat CT scan if her abdominal pain worsens please return to the emergency department *Continue to take medications as directed Stop taking nitrofurantoin Start staking keflex 500mg 3 times a day for 5 days *Follow up with your primary care provider in 2-3 days *Return to ER if you should have increasing abdominal pain is, persistent vomiting or any new, worsening or concerning symptoms Prescriptions: New cephalexin [Keflex] 500 mg capsule 500 mg PO TID Qty: 15 RF: 0 No Action fluticasone propionate 16 GM spray,suspension 1 spray Intranasal BID Qty: 16 RF: 12 loratadine [Claritin] 10 MG tablet 10 mg PO QDAYP PRN (Reason: Allergy Symptoms) Qty: 0 RF: 0 cyanocobalamin (vitamin B-12) 1,000 mcg/mL solution 1,000 mcg IM QMONTH Qty: 1 RF: 0 cyanocobalamin (vitamin B-12) 2,500 mcg tablet 2,500 mcg PO DAILY RF: 0 polyethylene glycol 3350 [Miralax] 17 gram Powder In Packet 17 g PO DAILY RF: 0 naproxen sodium [Aleve] 220 mg Tablet 220 mg PO BID PRN (Reason: pain) RF: 0 Referrals: Dinora Valentin ARNP [Primary Care Provider] -
[2019-02-19 11:19] LABS: Appearance Urine UA CLEAR; Bilirubin Urine UA NEGATIVE (NEGATIVE); Color Urine UA YELLOW; Glucose Urine UA NEGATIVE (Negative); Ketones Urine UA 1+ (NEGATIVE); Leukocyte Esterase Urine UA 1+ (NEGATIVE); Nitrite Urine UA NEGATIVE (Negative); Occult Blood Urine UA TRACE-LYSED (Negative); Protein Urine UA NEGATIVE (Negative); Urobilinogen Urine UA 0.2 E.U./dL (0.2)
--- NOTE | 2019-02-19 11:22 | DI.RAD.S_ITS ---
PROCEDURE: XR ACUTE ABDOMEN SERIES INDICATIONS: ab pain nausea TECHNIQUE: One view chest and two views of the abdomen were acquired. COMPARISON: [facility], CT, ABDOMEN/PELVIS WITH CONTRAST, 01/12/2017, 14:21. [facility], CR, CHEST 1 VIEW, 07/08/2011, 23:42. FINDINGS: Surgical changes and devices: None. Chest: There are linear opacities in the left lung base likely representing scarring or atelectasis. Heart size is normal. No pleural effusions. No pneumoperitoneum. Abdomen: Bowel gas pattern is within normal limits with intraluminal gas demonstrated in small and large bowel loops. No abnormal dilatation or air-fluid levels. No suspicious calcifications. Bones: No suspicious bony lesions. IMPRESSION: 1. No acute intra-abdominal radiographic abnormality. Dictated by: Manjeet Kunz M.D. on 02/19/2019 at 11:00 Approved by: Manjeet Kunz M.D. on 02/19/2019 at 11:01
[2019-02-19 11:25] LABS: Bacteria Urine Occasional (0-1); RBC Urine 0-1/HPF (0-5/HPF); Squamous Epithelial Cell Urine 1-5 /HPF (0-5/HPF); WBC Urine 5-10/HPF (0-5/HPF); pH Urine UA 7.5 (4.5-8.0)
[2019-02-19 11:26] LABS: Culture Indicated Urine Specimen Cultured
[2019-02-19 11:31] VITALS: BP 121/67; PULSE 90; RESP 24; O2SAT 94
[2019-02-19] MEDS: ACETAMINOPHEN 325 MG TABLET 975 MG PO (12:21)
[2019-02-19 12:33] VITALS: BP 130/49; PULSE 88; RESP 24; O2SAT 95
== END 2019-02-19 12:48 | disposition home or self-care (01) ==
PROVIDERS: Emergency Provider Emergency Medicine; PCP Nurse Practitioner
DX: N39.0 Urinary tract infection, site not specified (principal); T50.905A Adverse effect of unspecified drugs, medicaments and biological substances, initial encounter; R11.0 Nausea
CPT/HCPCS: 36415; 74022; 80053; 81001; 83690; 85025; 87086; 93005; 96360; 96361; 99283; 99285

== ENCOUNTER → 2019-03-09 11:30 | Outpatient (CLI) | payer OTHER, SELFPAY | PROVIDERS: PCP Nurse Practitioner; Visit Provider Nurse Practitioner | DX: N39.0 Urinary tract infection, site not specified (principal) | CPT/HCPCS: 87086 ==

== ENCOUNTER → 2019-04-04 10:21 | Outpatient (CLI) | payer OTHER, SELFPAY ==
[2019-04-04 10:52] LABS: Appearance Urine UA CLEAR; Bilirubin Urine UA NEGATIVE (NEGATIVE); Color Urine UA YELLOW; Glucose Urine UA NEGATIVE (Negative); Ketones Urine UA NEGATIVE (NEGATIVE); Leukocyte Esterase Urine UA 3+ (NEGATIVE); Nitrite Urine UA NEGATIVE (Negative); Occult Blood Urine UA 1+ (Negative); Protein Urine UA NEGATIVE (Negative); Specific Gravity Urine UA <=1.005 (1.000-1.035); Urobilinogen Urine UA 0.2 E.U./dL (0.2)
[2019-04-04 11:18] LABS: RBC Urine 0-1/HPF (0-5/HPF)
[2019-04-04 11:19] LABS: Bacteria Urine Few (2-10); Culture Indicated Urine Specimen Cultured; Squamous Epithelial Cell Urine 1-5 /HPF (0-5/HPF); WBC Urine 10-30/HPF (0-5/HPF)
[2019-04-04 12:01] LABS: Vitamin B12 889 pg/mL (239-931)
== END ==
PROVIDERS: PCP Nurse Practitioner; Visit Provider Nurse Practitioner
DX: E53.8 Deficiency of other specified B group vitamins (principal); R53.83 Other fatigue; N39.0 Urinary tract infection, site not specified; R31.9 Hematuria, unspecified
CPT/HCPCS: 36415; 81001; 82607; 87086

== ENCOUNTER → 2019-04-24 17:15 | Outpatient (CLI) | payer OTHER, SELFPAY ==
[2019-04-24 19:02] LABS: Bacteria Urine None Seen
[2019-04-24 19:55] LABS: Appearance Urine UA CLEAR; Bilirubin Urine UA NEGATIVE (NEGATIVE); Color Urine UA YELLOW; Culture Indicated Urine Cult Not Indicated; Glucose Urine UA NEGATIVE (Negative); Ketones Urine UA NEGATIVE (NEGATIVE); Leukocyte Esterase Urine UA NEGATIVE (NEGATIVE); Nitrite Urine UA NEGATIVE (Negative); Occult Blood Urine UA TRACE-INTACT (Negative); Protein Urine UA NEGATIVE (Negative); RBC Urine 0-1/HPF (0-5/HPF); Urobilinogen Urine UA 0.2 E.U./dL (0.2); WBC Urine 0-1/HPF (0-5/HPF)
== END ==
PROVIDERS: PCP Student in an Organized Health Care Education/Training Program; Visit Provider Nurse Practitioner
DX: R31.9 Hematuria, unspecified (principal)
CPT/HCPCS: 81001

== ENCOUNTER → 2019-11-01 15:17 | Outpatient (CLI) | payer OTHER, SELFPAY ==
[2019-11-01 19:19] LABS: Appearance Urine UA SL CLOUDY; Bilirubin Urine UA NEGATIVE (NEGATIVE); Color Urine UA YELLOW; Glucose Urine UA NEGATIVE (Negative); Ketones Urine UA NEGATIVE (NEGATIVE); Leukocyte Esterase Urine UA NEGATIVE (NEGATIVE); Nitrite Urine UA NEGATIVE (Negative); Occult Blood Urine UA 1+ (Negative); Protein Urine UA NEGATIVE (Negative); Urobilinogen Urine UA 0.2 E.U./dL (0.2)
[2019-11-01 19:31] LABS: Amorphous Sediment Urine 1+; Bacteria Urine Few (2-10); Culture Indicated Urine Specimen Cultured; RBC Urine 0-1/HPF (0-5/HPF); Squamous Epithelial Cell Urine 0-1 /HPF (0-5/HPF); WBC Urine 1-5/HPF (0-5/HPF)
== END ==
PROVIDERS: PCP Student in an Organized Health Care Education/Training Program; Visit Provider Nurse Practitioner
DX: R31.9 Hematuria, unspecified (principal); R32 Unspecified urinary incontinence
CPT/HCPCS: 81001; 87086

== ENCOUNTER → 2019-12-06 11:41 | Outpatient (CLI) | payer OTHER, SELFPAY | PROVIDERS: PCP Student in an Organized Health Care Education/Training Program; Visit Provider Specialist | DX: N39.0 Urinary tract infection, site not specified (principal); R31.29 Other microscopic hematuria | CPT/HCPCS: 81002; 87077; 87086; 87147; 87186; 99213 ==

== ENCOUNTER → 2021-05-08 13:54 | Outpatient (CLI) | payer OTHER, SELFPAY ==
[2021-05-08 14:42] LABS: Appearance Urine UA CLEAR; Bilirubin Urine UA NEGATIVE (NEGATIVE); Color Urine UA YELLOW; Glucose Urine UA NEGATIVE (Negative); Ketones Urine UA NEGATIVE (NEGATIVE); Leukocyte Esterase Urine UA 1+ (NEGATIVE); Nitrite Urine UA NEGATIVE (Negative); Occult Blood Urine UA 2+ (Negative); Protein Urine UA NEGATIVE (Negative); Specific Gravity Urine UA 1.025 (1.000-1.035); Urobilinogen Urine UA 0.2 E.U./dL (0.2)
[2021-05-08 15:05] LABS: Bacteria Urine Many (>30); Culture Indicated Urine Cult Not Indicated; RBC Urine 0-1/HPF (0-5/HPF); Squamous Epithelial Cell Urine 5-10 /HPF (0-5/HPF); Transitional Epi Cells Urine 1-5/HPF (0-5/HPF); WBC Urine 5-10/HPF (0-5/HPF)
== END ==
PROVIDERS: PCP Student in an Organized Health Care Education/Training Program; Referring Provider Nurse Practitioner; Visit Provider Nurse Practitioner
DX: R30.0 Dysuria (principal); R35.0 Frequency of micturition
CPT/HCPCS: 81001

== ENCOUNTER 2021-05-12 10:10 | Emergency (ER) | payer OTHER, SELFPAY ==
[2021-05-12 10:32] VITALS: BP 184/77; PULSE 80; RESP 18; TEMP 36.5; O2SAT 97; BMI 25.6
== END 2021-05-12 10:45 | disposition left against medical advice (07) ==
PROVIDERS: Emergency Provider Emergency Medicine; PCP Student in an Organized Health Care Education/Training Program
DX: Z53.21 Procedure and treatment not carried out due to patient leaving prior to being seen by health care provider (principal)
CPT/HCPCS: 99281

== ENCOUNTER 2021-05-22 11:24 | Emergency (ER) | payer OTHER, SELFPAY ==
[2021-05-22] VITALS (12 sets, daily range): BP systolic 120–178; BP diastolic 56–75; PULSE 71–86; RESP 14–18; TEMP 36.7; O2SAT 93–98; BMI 25.6
--- NOTE | 2021-05-22 11:42 | ED_ITS ---
HPI - Nausea/Vomiting/Diarrhea General Chief complaint: Nausea/Vomiting/Diarrhea Stated complaint: Diarrhea x 5 weeks Time Seen by Provider: 05/22/21 11:29 Source: patient Mode of arrival: Ambulatory History of Present Illness HPI Narrative: 86-year-old woman with minimal medical history reports a urinary tract infection approximately 6 weeks ago that was treated with Augmentin. By weeks ago she began having diarrhea that she felt was related to ?food poisoning?. She has continued to have diarrhea for the last 5 weeks and comes when with with her daughter for further evaluation. She does have an appointment with her primary care provider next week with blood work to be done prior. Her diarrhea consists of 1-2 loose stools in the morning after she eats with some general sense of distention and mild nest mass during the day. Over the last 3-4 days it has been getting slightly worse and she did have an episode of nighttime i ncontinence. She is having increasing left-sided and left lower quadrant pain over the last 2-3 days. There is no blood in the stool. She has not lost her appetite, she is not nauseated and is not vomiting. She describes no fevers or chills. No headaches, cough, palpitations. No lower extremity edema. Related Data Home Medications Medication Instructions Recorded Confirmed naproxen sodium 220 mg tablet 220 mg PO BID PRN 02/15/19 02/18/21 (Aleve) Previous Rx's Medication Instructions Recorded cyanocobalamin (vitamin B-12) 1,000 mcg IM QMONTH #1 ml 09/09/18 1,000 mcg/mL injection solution Estriol 1mg Vaginal Candis See Rx Instructions .ROUTE 11/01/19 .COMPLEX #30 each fluticasone propionate 50 1 spray INTRANASAL BID #16 g 03/25/21 mcg/actuation nasal spray,suspension ketorolac 0.5 % eye drops (Acular) 1 drp EYE-BOTH Q6-8H PRN #5 ml 03/25/21 levocetirizine 5 mg tablet 5 mg PO QPM #30 tab 03/25/21 trazodone 50 mg tablet 50 mg PO BEDTIME #90 tab 03/25/21 amoxicillin 500 mg-potassium 1 tab PO Q12H #10 tab 05/08/21 clavulanate 125 mg tablet omeprazole 20 mg capsule,delayed 20 mg PO DAILY #30 cap 05/08/21 release phenazopyridine 100 mg tablet 100 mg PO TID PRN #6 tab 05/08/21 (Pyridium) simethicone 125 mg capsule (Gas 125 mg PO BID-QID PRN #30 cap 05/08/21 Relief (simethicone)) Allergies Allergy/AdvReac Type Severity Reaction Status Date / Time Sulfa (Sulfonamide Allergy Unknown Verified 05/22/21 11:38 Antibiotics) nitrofurantoin AdvReac Intermediate Vomitting/ Verified 05/22/21 11:38 [From Macrobid] nausea/ all over pain. Review of Systems Review of Systems Narrative: Remainder of complete review of systems is otherwise unremarkable except for that included in the HPI. 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 Major depressive disorder, single episode Measles Microscopic hematuria 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 Osteopenia Other migraine, not intractable, without status migrainosus Ovarian cyst Pelvic floor dysfunction Personal history of other malignant neoplasm of large intestine Seasonal allergic rhinitis (09/25/14) Seasonal allergies Stress incontinence Vaginitis, atrophic Vertigo Surgical History Anesthesia Broken nose Bunion Cataract extraction status of left eye Cataract extraction status of right eye H/O colectomy History of appendectomy History of cataract removal with insertion of prosthetic lens History of partial colectomy (~2009) S/P hysterectomy Status post hysterectomy Family History Brother Age: 82 Cancer Father Cancer Mother Mental health problem Dementia Grandmother Diabetes mellitus Social History marital status: number of children: 2 Smoking Status: Never smoker alcohol intake: current substance use type: does not use Smoking Status: Never smoker alcohol intake frequency: holidays/special occasions only Substance Use Type: does not use Exam Narrative Exam Narrative: General: Healthy appearing, in no acute distress. Able to give a complete and coherent history. Well-nourished well-developed HEENT: Moist mucous membranes, normal sclera with reactive pupils, Neck: No JVD, supple Respiratory: Lungs are clear to auscultation, no wheezing no rales no rhonchi. Full and symmetrical air movement Cardiac: Regular rate and rhythm no murmurs no bruits Abdomen: Soft, mild tenderness in the left lower quadrant without rebound or guarding, good bowel tones, no flank pain Skin: Warm and dry, no rashes Neurologic: Grossly neurologically intact with no obvious asymmetries or abnormalities Extremities: No trauma, well perfused Psych: Cooperative, appropriate insight and affect Initial Vital Signs Initial Vital Signs: Vital Signs Temperature 98.0 F 05/22/21 11:30 Pulse Rate 85 05/22/21 11:30 Respiratory Rate 14 05/22/21 11:30 Blood Pressure 144/75 H 05/22/21 11:30 Pulse Oximetry 97 05/22/21 11:30 Course Orders Ordered: ED Orders 05/22/21 11:49 Complete Blood Count AUTO DIFF Stat Comprehensive Metabolic Panel Stat 05/22/21 12:07 GI Panel (Film Array) Stat 05/22/21 12:10 COVID19 - ADMIT ([employer]TA[employer]ES [employer]OR swab/PCR) Stat Vital Signs Vital signs: Vital Signs - 8 hr 05/22/21 11:30 05/22/21 11:56 05/22/21 12:00 Temperature 98.0 F Pulse Rate 85 86 77 Respiratory Rate 14 Blood Pressure 144/75 H 144/75 H Pulse Oximetry 97 94 94 05/22/21 12:56 05/22/21 12:57 05/22/21 13:00 Temperature Pulse Rate 73 73 77 Respiratory Rate 18 18 Blood Pressure 120/56 L Pulse Oximetry 96 96 96 05/22/21 13:30 05/22/21 14:09 Temperature Pulse Rate 71 74 Respiratory Rate 18 Blood Pressure 178/72 H Pulse Oximetry 97 98 MDM - Nausea/Vomiting/Diarrhea Lab Data Result diagrams: 05/22/21 11:49 05/22/21 11:49 Labs: Lab Results 05/22/21 05/22/21 05/22/21 Range/Units 11:49 11:49 12:10 WBC 7.2 (4.5-11.0) X10^3/uL RBC 4.14 (4.0-5.2) X10^6/uL Hgb 12.2 (12.0-16.0) g/dL Hct 37.2 (36-46) % MCV 89.8 (80-100) fL MCH 29.6 (26-34) PG MCHC 32.9 (30-36) % RDW 14.6 (11.6-14.8) % Plt Count 195 (150-400) X10^3/uL Neut % (Auto) 72.8 (50-75) % Lymph % (Auto) 18.2 L (25-40) % [place] % (Auto) 6.3 (3-14) % Eos % (Auto) 1.3 L (2-4) % Baso % (Auto) 1.4 (0-2) % Neut # (Auto) 5300 (2563-2209) /uL Lymph # (Auto) 1300 (0850-4576) /uL [place] # (Auto) 500 (0-900) /uL Eos # (Auto) 100 (0-450) /uL Baso # (Auto) 100 (0-100) /uL Sodium 142 (137-145) mmol/L Potassium 3.7 (3.4-5.1) mmol/L Chloride 109 H (98-107) mmol/L Carbon Dioxide 26 (22-32) mmol/L BUN 14 (7-17) mg/dL Creatinine 0.79 (0.52-1.04) mg/dL Estimated GFR > 60.0 (>60) mL/min BUN/Creatinine Ratio 17.7 (6-22) Glucose 129 H (80-110) mg/dL Calcium 9.3 (8.4-10.2) mg/dL Total Bilirubin 0.6 (0.2-1.3) mg/dL AST 19 (14-36) IU/L ALT 15 (<35) IU/L Alkaline Phosphatase 65 (38-126) U/L Total Protein 7.0 (6.3-8.2) g/dL Albumin 4.1 (3.5-5.0) g/dL Globulin 2.9 (1.7-4.1) g/dL Albumin/Globulin Ratio 1.4 (1.0-2.8) SARS-CoV-2 (PCR) Negative (Negative) MDM Narrative Medical decision making narrative: 86-year-old woman with 5 weeks of diarrhea following an antibiotic course. Diarrhea sounds at most 1-2 stools in the morning. Single episode of night-time fecal incontinence with increasing mild left lower quadrant tenderness over the past 2-3 days. No fevers or blood or other red flag signs. Lab work is reassuring. Physical exam is reassuring. She is unable to ride a stool sample here in the emergency room so an outpatient lab slip is given. She has an appointment scheduled next week with her primary care physician to follow-up. Her daughter was hoping that hospital admission with a colonoscopy could be performed today. Explained that there is no medical need for hospitalization at this time and that while a colonoscopy is absolutely a part of an outpatient chronic diarrhea workup, a stool PCR test would be appropriately done 1st and the colonoscopy would not be emergent. In the past she has been referred for colonoscopies after partial colon resection for high-risk polyps but did not want to drive to [place] as she is the primary caregiver for her she did not feel comfortable leaving him alone for the time it would take to drive to [place], have a procedure and return. At this time, she is safe for home discharge Discharge Plan Departure Patient Disposition: Home Clinical Impression: Chronic diarrhea Instructions: Diarrhea Activity Restrictions/Additional Instructions: Thank you for coming in today Having diarrhea for 5 weeks is definitely disconcerting. Fortunately, there are no life-threatening issues found on your lab work and your clinical exam is fairly benign. At this time there is no indication for staying in the hospital. The next step in your workup is to collect a stool sample. We did try in the emergency room however we were unsuccessful. I have given you an outpatient lab slip, please collect stool the next time you have diarrhea and bring the sample in to the outpatient lab at [facility]. I will ask the results to be sent to Dr. Sandoval and Ms Valentin. Please keep your follow-up appointment with your primary care physician next week. Prescriptions: No Action cyanocobalamin (vitamin B-12) 1,000 mcg/mL solution 1,000 mcg IM QMONTH Qty: 1 0RF amoxicillin-pot clavulanate 500-125 mg tablet 1 tab PO Q12H Qty: 10 0RF Rx Instructions: Take 1 tab every 12 hours x5 days for UTI phenazopyridine [Pyridium] 100 mg tablet 100 mg PO TID PRN (Reason: pain) Qty: 6 0RF Rx Instructions: Take 1 tab by mouth 3x/day as needed for bladder pain omeprazole 20 mg capsule,delayed release(DR/EC) 20 mg PO DAILY Qty: 30 1RF Rx Instructions: Take 1 capsule each morning simethicone [Gas Relief (simethicone)] 125 mg capsule 125 mg PO BID-QID PRN (Reason: abdominal distention) Qty: 30 2RF Rx Instructions: Take 1 capsule 2-4 times per day for bloating/gas symptom Estriol 1mg Vaginal Candis See Rx Instructions .ROUTE .COMPLEX Qty: 30 2RF Rx Instructions: Insert one candis vaginally at bedtime for 2 weeks, then every other night fluticasone propionate 50 mcg/actuation spray,suspension 1 spray Intranasal BID Qty: 16 12RF Rx Instructions: 1 spray each nostril up to 2x/day ketorolac [Acular] 0.5 % drops 1 drp EYE-BOTH Q6-8H PRN (Reason: itching) Qty: 5 5RF levocetirizine 5 mg tablet 5 mg PO QPM Qty: 30 3RF Rx Instructions: Take 1 tab daily for allergies trazodone 50 mg tablet 50 mg PO BEDTIME Qty: 90 3RF Rx Instructions: Take 1 tab at bedtime daily naproxen sodium [Aleve] 220 mg Tablet 220 mg PO BID PRN (Reason: pain) 0RF Referrals: Drew Mancera MD [Primary Care Provider] -
[2021-05-22 12:15] LABS: Add Manual Diff / Slide Review NO; Basophils Absolute Auto 100 /uL (0-100); Basophils Percent Auto 1.4 % (0-2); Eosinophils Absolute Auto 100 /uL (0-450); Eosinophils Percent Auto 1.3 % (2-4); Hematocrit 37.2 % (36-46); Hemoglobin 12.2 g/dL (12.0-16.0); Lymphocytes Absolute Auto 1300 /uL (1100-4500); Lymphocytes Percent Auto 18.2 % (25-40); Mean Corpuscular HGB Conc 32.9 % (30-36); Mean Corpuscular Hemoglobin 29.6 PG (26-34); Mean Corpuscular Volume 89.8 fL (80-100); Monocytes Absolute Auto 500 /uL (0-900); Monocytes Percent Auto 6.3 % (3-14); Neutrophils Absolute Auto 5300 /uL (1500-7000); Neutrophils Percent Auto 72.8 % (50-75); Platelet Count 195 X10^3/uL (150-400); Red Blood Cell Count 4.14 X10^6/uL (4.0-5.2); Red Cell Distribution Width 14.6 % (11.6-14.8); White Blood Cell Count 7.2 X10^3/uL (4.5-11.0)
[2021-05-22 12:19] LABS: Alanine Aminotransferase 15 IU/L (<35); Albumin 4.1 g/dL (3.5-5.0); Albumin Globulin Ratio 1.4 (1.0-2.8); Alkaline Phosphatase 65 U/L (38-126); Aspartate Aminotransferase 19 IU/L (14-36); BUN Creatinine Ratio 17.7 (6-22); Bilirubin Total 0.6 mg/dL (0.2-1.3); Blood Urea Nitrogen 14 mg/dL (7-17); Calcium 9.3 mg/dL (8.4-10.2); Carbon Dioxide 26 mmol/L (22-32); Chloride 109 mmol/L (98-107); Estimated Glomerular Filt Rate > 60.0 mL/min (>60); Globulin 2.9 g/dL (1.7-4.1); Glucose 129 mg/dL (80-110); HEMOLYSIS < 15 (0-50); Potassium 3.7 mmol/L (3.4-5.1); Sodium 142 mmol/L (137-145)
[2021-05-22 13:00] LABS: COVID19 - ADMIT (NP swab/PCR) Negative (Negative)
== END 2021-05-22 15:05 | disposition home or self-care (01) ==
PROVIDERS: Emergency Provider Emergency Medicine; PCP Student in an Organized Health Care Education/Training Program
DX: K52.9 Noninfective gastroenteritis and colitis, unspecified (principal); Z20.822 Contact with and (suspected) exposure to COVID-19
CPT/HCPCS: 36415; 80053; 85025; 87635; 99283; C9803

== ENCOUNTER → 2021-05-23 08:23 | Outpatient (CLI) | payer OTHER, SELFPAY ==
[2021-05-23 12:54] LABS: Campylobacter Not Detected (Not Detect); Clostridium difficile toxin AB Not Detected (Not Detect); Enteroaggregative E.coli Not Detected (Not Detect); Enteropathogenic E.coli Not Detected (Not Detect); Enterotoxigenic E.coli It/st Not Detected (Not Detect); Plesiomonsa shigelloides Not Detected (Not Detect); Salmonella Not Detected (Not Detect); Shiga-like toxin-prod E.coli Not Detected (Not Detect); Shigella/Enteroinvasive E.coli Not Detected (Not Detect); Vibrio Not Detected (Not Detect); Vibrio cholerae Not Detected (Not Detect); Yersinia enterocolitica Not Detected (Not Detect)
[2021-05-23 12:55] LABS: Adenovirus F 40/41 Not Detected (Not Detect); Astrovirus Not Detected (Not Detect); Cryptosporidium Not Detected (Not Detect); Cyclospora cayetanensis Not Detected (Not Detect); Entamoeba histolytica Not Detected (Not Detect); Giardia lamblia Not Detected (Not Detect); Norovirus GI/GII Not Detected (Not Detect); Rotavirus A Not Detected (Not Detect); Sapovirus Not Detected (Not Detect)
== END ==
PROVIDERS: PCP Student in an Organized Health Care Education/Training Program; Referring Provider Emergency Medicine; Visit Provider Emergency Medicine
DX: R19.7 Diarrhea, unspecified (principal); R10.84 Generalized abdominal pain
CPT/HCPCS: 87507

== ENCOUNTER → 2021-05-26 11:37 | Outpatient (CLI) | payer OTHER, SELFPAY ==
[2021-05-26 12:25] LABS: Appearance Urine UA CLEAR; Bilirubin Urine UA NEGATIVE (NEGATIVE); Color Urine UA YELLOW; Glucose Urine UA NEGATIVE (Negative); Ketones Urine UA NEGATIVE (NEGATIVE); Leukocyte Esterase Urine UA 2+ (NEGATIVE); Nitrite Urine UA NEGATIVE (Negative); Occult Blood Urine UA 1+ (Negative); Protein Urine UA NEGATIVE (Negative); Urobilinogen Urine UA 0.2 E.U./dL (0.2); pH Urine UA 5.5 (4.5-8.0)
[2021-05-26 12:34] LABS: Bacteria Urine Moderate (10-30); Culture Indicated Urine Specimen Cultured; RBC Urine 1-5/HPF (0-5/HPF); Renal Epithelial Cells Urine 5-10/HPF (0-1/HPF); WBC Urine 5-10/HPF (0-5/HPF)
== END ==
PROVIDERS: PCP Student in an Organized Health Care Education/Training Program; Referring Provider Nurse Practitioner; Visit Provider Nurse Practitioner
DX: N39.0 Urinary tract infection, site not specified (principal)
CPT/HCPCS: 81001; 87086

== ENCOUNTER → 2021-06-17 10:30 | Outpatient (CLI) | payer OTHER, SELFPAY ==
--- NOTE | 2021-06-17 10:31 | DI.US.S_ITS ---
PROCEDURE: US ABDOMEN COMPLETE INDICATIONS: PAIN, BLOATING, DIARRHEA TECHNIQUE: Real-time scanning was performed of the abdominal and retroperitoneal organs, with image documentation. COMPARISON: [facility], CT, ABDOMEN/PELVIS WITH CONTRAST, 01/01/2010, 10:38. [facility], CT, CT ABDOMEN PELVIS W CON, 01/16/2019, 13:28. FINDINGS: Liver: Liver is normal in size and homogeneous in echotexture other than a echogenic focus in the posterior right lobe measuring 2.1 by 1.2 x 2.0 cm, consistent with small hemangioma.. Gallbladder: Sonolucent without evidence cholelithiasis, gallbladder wall thickening or pericholecystic fluid. No sonographic Romo sign. Biliary ducts: Intrahepatic bile ducts are non-dilated. Extrahepatic bile duct caliber measures 4.5 mm. Normal is 6-7 mm or less in diameter, or 10 mm or less post-cholecystectomy. Pancreas: Visualized portions of the pancreas are sonographically normal. Spleen: Spleen is normal in size and homogeneous in echotexture. Kidneys: Kidneys are normal in size and echotexture. Right kidney measures 8.8 cm long; left kidney measures 9.8 cm long. No hydronephrosis or nephrolithiasis. 4.7 x 3.5 cm left renal cortical cyst present. There is a 1.8 x 1.5 cm right renal exophytic nodule without internal vascularity arising from the inferior cortex. Aorta: Visualized aorta is normal in caliber at less than 3 cm. Iliacs: Proximal common iliac arteries are normal in caliber at less than 2.5 cm. IVC: Intrahepatic inferior vena cava is patent. Miscellaneous: No free abdominal fluid. IMPRESSION: 1. No acute ultrasound findings in the abdomen. 2. Incidental 4.7 cm simple left renal cyst. 3. Hyperechoic right renal cyst is similar to prior CT 01/16/2019 Approved by: Anant Cardenas M.D. on 06/17/2021 at 13:54
== END ==
PROVIDERS: PCP Student in an Organized Health Care Education/Training Program; Referring Provider Nurse Practitioner; Visit Provider Nurse Practitioner
DX: N28.1 Cyst of kidney, acquired (principal); K52.9 Noninfective gastroenteritis and colitis, unspecified; R14.0 Abdominal distension (gaseous); R10.11 Right upper quadrant pain; R10.31 Right lower quadrant pain; R10.12 Left upper quadrant pain
CPT/HCPCS: 76700

== ENCOUNTER → 2021-09-15 10:48 | Outpatient (CLI) | payer OTHER, SELFPAY ==
[2021-09-15 12:35] LABS: Appearance Urine UA CLEAR; Bilirubin Urine UA NEGATIVE (NEGATIVE); Color Urine UA YELLOW; Glucose Urine UA NEGATIVE (Negative); Ketones Urine UA NEGATIVE (NEGATIVE); Leukocyte Esterase Urine UA 1+ (NEGATIVE); Nitrite Urine UA NEGATIVE (Negative); Occult Blood Urine UA TRACE-LYSED (Negative); Protein Urine UA NEGATIVE (Negative); Specific Gravity Urine UA <=1.005 (1.000-1.035); Urobilinogen Urine UA 0.2 E.U./dL (0.2)
[2021-09-15 12:45] LABS: Amorphous Sediment Urine 1+; Bacteria Urine Occasional (0-1); Culture Indicated Urine Specimen Cultured; RBC Urine 1-5/HPF (0-5/HPF); Renal Epithelial Cells Urine 5-10/HPF (0-1/HPF); WBC Urine 5-10/HPF (0-5/HPF)
[2021-09-15 16:37] LABS: Hep C Virus Ab w/Reflex Quant NEGATIVE s/c (NEGATIVE)
== END ==
PROVIDERS: PCP Student in an Organized Health Care Education/Training Program; Referring Provider Nurse Practitioner; Visit Provider Nurse Practitioner
DX: Z11.59 Encounter for screening for other viral diseases (principal); R35.0 Frequency of micturition
CPT/HCPCS: 36415; 81001; 86803; 87086

== ENCOUNTER 2021-10-19 10:03 | Emergency (ER) | payer OTHER, SELFPAY ==
[2021-10-19] VITALS (12 sets, daily range): BP systolic 121–165; BP diastolic 57–73; PULSE 63–76; RESP 14–21; TEMP 36.9; O2SAT 93–97; BMI 32.3
--- NOTE | 2021-10-19 10:46 | ED_ITS ---
HPI - Abdominal Pain General Chief Complaint: Abdominal Pain Stated Complaint: Fever, nausea, diarrhea x 1.5 wk Time Seen by Provider: 10/19/21 10:04 Source: patient and EMS Mode of arrival: EMS History of Present Illness HPI narrative: The patient complains of abdominal pain. The pain has been intermittent and nonspecific. Now, pain has been consistent since yesterday. She has no headache, no URI symptoms, or chest discomfort she has lower abdominal pain this morning. She has no nausea, vomiting or diarrhea. She has no back pain. She has intermittent diarrhea, she had a loose bowel movement this morning. She has a history of partial colectomy due to sigmoid diverticulosis she denies dysuria hematuria, she has no history kidney stones. She has a history of UTI, but she does not feel like she has UTI at this time. Related Data Home Medications Medication Instructions Recorded Confirmed naproxen sodium 220 mg tablet 220 mg PO BID PRN 02/15/19 09/15/21 (Aleve) Previous Rx's Medication Instructions Recorded cyanocobalamin (vitamin B-12) 1,000 mcg IM QMONTH #1 ml 09/09/18 1,000 mcg/mL injection solution Estriol 1mg Vaginal Alexus See Rx Instructions .ROUTE 11/01/19 .COMPLEX #30 each fluticasone propionate 50 1 spray INTRANASAL BID #16 g 03/25/21 mcg/actuation nasal spray,suspension ketorolac 0.5 % eye drops (Acular) 1 drp EYE-BOTH Q6-8H PRN #5 ml 03/25/21 levocetirizine 5 mg tablet 5 mg PO QPM #30 tab 03/25/21 omeprazole 20 mg capsule,delayed 20 mg PO DAILY #30 cap 05/08/21 release simethicone 125 mg capsule (Gas 125 mg PO BID-QID PRN #30 cap 05/26/21 Relief (simethicone)) fluoxetine 10 mg capsule 20 mg PO DAILY #60 cap 10/02/21 cephalexin 500 mg capsule 500 mg PO Q8H 7 Days #21 cap 10/19/21 Allergies Allergy/AdvReac Type Severity Reaction Status Date / Time Sulfa (Sulfonamide Allergy Unknown Verified 09/15/21 10:10 Antibiotics) nitrofurantoin AdvReac Intermediate Vomitting/ Verified 09/15/21 10:10 [From Macrobid] nausea/ all over pain. Review of Systems Constitutional Constitutional: Denies body ache(s), Denies chills, Denies fever(s), Denies headache(s), Denies night sweats and Denies poor appetite ENT Ears, Nose, Mouth, and Throat: Denies vertigo, Denies dizziness, Denies headache(s), Denies sinus pain, Denies sinus pressure and Denies sore throat Cardiovascular Cardiovascular: Denies chest pain, Denies rapid heart rate, Denies leg ulcers, Denies leg edema and Denies dyspnea Respiratory Respiratory: Denies chest congestion, Denies cough and Denies dyspnea Gastrointestinal Gastrointestinal: Reports as per HPI Genitourinary Genitourinary: Denies dysuria, Denies flank pain and Denies vaginal pruritus Musculoskeletal Musculoskeletal: Denies back pain and Denies arthralgias Integumentary/Breasts Skin/Breast: Denies rash Neurologic Neurologic: Denies confusion, Denies vertigo, Denies dizziness and Denies headache(s) Psychiatric Psychiatric: Denies anxiety and Denies confusion Hematologic/Lymphatic On Anticoagulants: No Patient History Medical History Acquired absence of other specified parts of digestive tract Allergic rhinitis B12 deficiency Caregiver role strain Caregiver with fatigue Chicken pox Colon polyps Cystocele Depression with anxiety Diverticular disease Diverticulitis Family history of diabetes mellitus Family history of malignant neoplasm of bladder Family history of malignant neoplasm of trachea, bronchus and lung Family history of other mental and behavioral disorders Fatigue History of recurrent ear infection 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 Major depressive disorder, single episode Measles Microscopic hematuria 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 Osteopenia Other migraine, not intractable, without status migrainosus Ovarian cyst Pelvic floor dysfunction Personal history of other malignant neoplasm of large intestine Seasonal allergic rhinitis (09/25/14) Seasonal allergies Stress incontinence Vaginitis, atrophic Vertigo Surgical History Anesthesia Broken nose Bunion Cataract extraction status of left eye Cataract extraction status of right eye H/O colectomy History of appendectomy History of cataract removal with insertion of prosthetic lens History of partial colectomy (~2009) S/P hysterectomy Status post hysterectomy Family History Brother Age: 82 Cancer Father Cancer Mother Mental health problem Dementia Grandmother Diabetes mellitus Social History marital status: number of children: 2 Smoking Status: Never smoker alcohol intake: current substance use type: does not use Smoking Status: Never smoker alcohol intake frequency: holidays/special occasions only Substance Use Type: does not use Exam Initial Vital Signs Initial Vital Signs: Vital Signs Pulse Rate 75 10/19/21 10:10 Blood Pressure 142/65 H 10/19/21 10:10 Pulse Oximetry 95 10/19/21 10:10 Const General: cooperative, comfortable and No acute distress HENMT Head: normal to inspection, normocephalic and atraumatic Mouth: oropharynx normal Eyes Pupils: PERRL EOM: EOM intact bilaterally Neck Neck: No JVD Chest Chest: normal palpation of entire chest wall Resp Effort & Inspection: normal respiratory effort Auscultation: clear to auscultation bilaterally Cardio Rate: regular rate Rhythm: regular rhythm Heart Sounds: S1 normal, S2 normal and no murmurs GI Other: Suprapubic abdominal pain, no distension and no guarding. No masses. Normal bowel sounds. General: No CVA tenderness Back/Spine/Pelvis Back: No CVA tenderness Skin General: no rashes or lesions noted Other: Right foot erythema, otherwise normal. Neuro General: patient alert, patient awake, patient oriented x3 and no focal motor deficits Extrem General: normal to inspection, no pedal edema and no calf tenderness Course Course Course Narrative: Patient has suprapubic tenderness. UA suggestive UTI. Workup was otherwise benign. Patient is discharged on Keflex for UTI. Urine culture is pending. Orders Ordered: ED Orders 10/19/21 10:43 EKG-12 Lead Stat 10/19/21 10:48 Complete Blood Count AUTO DIFF Stat Comprehensive Metabolic Panel Stat Lipase Stat 10/19/21 11:06 Urinalysis and Microscopic Stat Urine Culture Stat 10/19/21 12:28 COVID19 -Nasal RAPID/Pre-Proc Stat Discontinued Medications Cephalexin HCl (Cephalexin 250 Mg Capsule) 500 mg PO NOW ONE Stop: 10/19/21 13:42 Last Admin: 10/19/21 14:02 Dose: 500 mg Documented by: BRADLEY Sodium Chloride (Normal Saline 0.9%) 1,000 mls @ 250 mls/hr IV CONT INNA Last Infusion: 10/19/21 14:02 Dose: 0 mls/hr Documented by: Admin: 10/19/21 12:26 Dose: 250 mls/hr Documented by: RICARDO Sodium Chloride (Sodium Chloride 0.9% 100 Ml) 250 ml IV NOW ONE Stop: 10/19/21 10:49 Last Admin: 10/19/21 12:24 Dose: Not Given Documented by: RICARDO Vital Signs Vital signs: Vital Signs - 8 hr 10/19/21 11:30 10/19/21 11:39 10/19/21 12:00 Pulse Rate 70 69 66 Respiratory Rate 18 17 Blood Pressure 130/60 121/57 L Pulse Oximetry 95 94 94 10/19/21 12:23 10/19/21 12:30 10/19/21 13:00 Pulse Rate 70 65 63 Respiratory Rate 20 21 19 Blood Pressure 165/71 H 135/62 123/58 L Pulse Oximetry 97 96 94 10/19/21 13:30 10/19/21 14:03 Pulse Rate 63 63 Respiratory Rate 16 18 Blood Pressure 129/62 129/60 Pulse Oximetry 94 97 MDM - Abdominal Pain Lab Data Result diagrams: 10/19/21 10:48 10/19/21 10:48 Labs: Lab Results 10/19/21 10/19/21 10/19/21 Range/Units 10:48 10:48 11:06 WBC 6.8 (4.5-11.0) X10^3/uL RBC 4.43 (4.0-5.2) X10^6/uL Hgb 13.1 (12.0-16.0) g/dL Hct 39.1 (36-46) % MCV 88.2 (80-100) fL MCH 29.6 (26-34) PG MCHC 33.6 (30-36) % RDW 14.7 (11.6-14.8) % Plt Count 201 (150-400) X10^3/uL Neut % (Auto) 72.1 (50-75) % Lymph % (Auto) 19.7 L (25-40) % [place] % (Auto) 6.1 (3-14) % Eos % (Auto) 0.8 L (2-4) % Baso % (Auto) 1.3 (0-2) % Neut # (Auto) 4900 (6543-1584) /uL Lymph # (Auto) 1300 (7696-9084) /uL [place] # (Auto) 400 (0-900) /uL Eos # (Auto) 100 (0-450) /uL Baso # (Auto) 100 (0-100) /uL Sodium 138 (137-145) mmol/L Potassium 4.1 (3.4-5.1) mmol/L Chloride 105 (98-107) mmol/L Carbon Dioxide 29 (22-32) mmol/L BUN 12 (7-17) mg/dL Creatinine 0.77 (0.52-1.04) mg/dL Estimated GFR > 60 (>60) mL/min BUN/Creatinine Ratio 15.6 (6-22) Glucose 127 H (80-110) mg/dL Calcium 9.1 (8.4-10.2) mg/dL Total Bilirubin 0.6 (0.2-1.3) mg/dL AST 20 (14-36) IU/L ALT 13 (<35) IU/L Alkaline Phosphatase 65 (38-126) U/L Total Protein 7.1 (6.3-8.2) g/dL Albumin 4.1 (3.5-5.0) g/dL Globulin 3.0 (1.7-4.1) g/dL Albumin/Globulin Ratio 1.4 (1.0-2.8) Lipase 68 (23-300) U/L Urine Color Yellow Urine Appearance Clear Urine pH 6.5 (4.5-8.0) Ur Specific [place] <=1.005 (1.000-1.035) Urine Protein Negative (Negative) Urine Glucose (UA) Negative (Negative) g/dL Urine Ketones Negative (NEGATIVE) Urine Occult Blood Trace-intact (Negative) Urine Nitrate Negative (Negative) Urine Bilirubin Negative (NEGATIVE) Urine Urobilinogen 0.2 (0.2) E.U./dL Ur Leukocyte Esterase 2+ H (NEGATIVE) Urine RBC 1-5/hpf (0-5/HPF) Urine WBC 5-10/hpf H (0-5/HPF) Urine Bacteria Few (2-10) H (None) Ur Culture Indicated? Specimen cultured SARS-CoV-2 (PCR) (Negative) 05/29/22 Range/Units 12:28 WBC (4.5-11.0) X10^3/uL RBC (4.0-5.2) X10^6/uL Hgb (12.0-16.0) g/dL Hct (36-46) % MCV (80-100) fL MCH (26-34) PG MCHC (30-36) % RDW (11.6-14.8) % Plt Count (150-400) X10^3/uL Neut % (Auto) (50-75) % Lymph % (Auto) (25-40) % [place] % (Auto) (3-14) % Eos % (Auto) (2-4) % Baso % (Auto) (0-2) % Neut # (Auto) (6634-0157) /uL Lymph # (Auto) (6164-3208) /uL [place] # (Auto) (0-900) /uL Eos # (Auto) (0-450) /uL Baso # (Auto) (0-100) /uL Sodium (137-145) mmol/L Potassium (3.4-5.1) mmol/L Chloride (98-107) mmol/L Carbon Dioxide (22-32) mmol/L BUN (7-17) mg/dL Creatinine (0.52-1.04) mg/dL Estimated GFR (>60) mL/min BUN/Creatinine Ratio (6-22) Glucose (80-110) mg/dL Calcium (8.4-10.2) mg/dL Total Bilirubin (0.2-1.3) mg/dL AST (14-36) IU/L ALT (<35) IU/L Alkaline Phosphatase (38-126) U/L Total Protein (6.3-8.2) g/dL Albumin (3.5-5.0) g/dL Globulin (1.7-4.1) g/dL Albumin/Globulin Ratio (1.0-2.8) Lipase (23-300) U/L Urine Color Urine Appearance Urine pH (4.5-8.0) Ur Specific [place] (1.000-1.035) Urine Protein (Negative) Urine Glucose (UA) (Negative) g/dL Urine Ketones (NEGATIVE) Urine Occult Blood (Negative) Urine Nitrate (Negative) Urine Bilirubin (NEGATIVE) Urine Urobilinogen (0.2) E.U./dL Ur Leukocyte Esterase (NEGATIVE) Urine RBC (0-5/HPF) Urine WBC (0-5/HPF) Urine Bacteria (None) Ur Culture Indicated? SARS-CoV-2 (PCR) Negative (Negative) Discharge Plan Departure Patient Disposition: Home Clinical Impression: Urinary tract infection Instructions: DI for Urinary Tract Infection (UTI) Activity Restrictions/Additional Instructions: Be sure you are drinking plenty of water daily. Keflex 3 times daily for 7 days. Recheck with your doctor in about 10 days. Return here if symptoms increase. Return here if you developed fever. Prescriptions: New cephalexin 500 mg capsule 500 mg PO Q8H 7 Days Qty: 21 0RF No Action cyanocobalamin (vitamin B-12) 1,000 mcg/mL solution 1,000 mcg IM QMONTH Qty: 1 0RF simethicone [Gas Relief (simethicone)] 125 mg capsule 125 mg PO BID-QID PRN (Reason: abdominal distention) Qty: 30 2RF Rx Instructions: Take 1 capsule 2-4 times per day for bloating/gas symptom omeprazole 20 mg capsule,delayed release(DR/EC) 20 mg PO DAILY Qty: 30 1RF Rx Instructions: Take 1 capsule each morning fluoxetine 10 mg capsule 20 mg PO DAILY Qty: 60 1RF Rx Instructions: Take 2 tabs in the morning daily Estriol 1mg Vaginal Alexus See Rx Instructions .ROUTE .COMPLEX Qty: 30 2RF Rx Instructions: Insert one alexus vaginally at bedtime for 2 weeks, then every other night fluticasone propionate 50 mcg/actuation spray,suspension 1 spray Intranasal BID Qty: 16 12RF Rx Instructions: 1 spray each nostril up to 2x/day ketorolac [Acular] 0.5 % drops 1 drp EYE-BOTH Q6-8H PRN (Reason: itching) Qty: 5 5RF levocetirizine 5 mg tablet 5 mg PO QPM Qty: 30 3RF Rx Instructions: Take 1 tab daily for allergies naproxen sodium [Aleve] 220 mg Tablet 220 mg PO BID PRN (Reason: pain) 0RF Referrals: Drew Mancera MD [Primary Care Provider] -
[2021-10-19 10:51] LABS: Add Manual Diff / Slide Review NO; Basophils Absolute Auto 100 /uL (0-100); Basophils Percent Auto 1.3 % (0-2); Eosinophils Absolute Auto 100 /uL (0-450); Eosinophils Percent Auto 0.8 % (2-4); Hematocrit 39.1 % (36-46); Hemoglobin 13.1 g/dL (12.0-16.0); Lymphocytes Absolute Auto 1300 /uL (1100-4500); Lymphocytes Percent Auto 19.7 % (25-40); Mean Corpuscular HGB Conc 33.6 % (30-36); Mean Corpuscular Hemoglobin 29.6 PG (26-34); Mean Corpuscular Volume 88.2 fL (80-100); Monocytes Absolute Auto 400 /uL (0-900); Monocytes Percent Auto 6.1 % (3-14); Neutrophils Absolute Auto 4900 /uL (1500-7000); Neutrophils Percent Auto 72.1 % (50-75); Platelet Count 201 X10^3/uL (150-400); Red Blood Cell Count 4.43 X10^6/uL (4.0-5.2); Red Cell Distribution Width 14.7 % (11.6-14.8); White Blood Cell Count 6.8 X10^3/uL (4.5-11.0)
[2021-10-19 10:57] LABS: Alanine Aminotransferase 13 IU/L (<35); Albumin 4.1 g/dL (3.5-5.0); Albumin Globulin Ratio 1.4 (1.0-2.8); Alkaline Phosphatase 65 U/L (38-126); Aspartate Aminotransferase 20 IU/L (14-36); BUN Creatinine Ratio 15.6 (6-22); Bilirubin Total 0.6 mg/dL (0.2-1.3); Blood Urea Nitrogen 12 mg/dL (7-17); Calcium 9.1 mg/dL (8.4-10.2); Carbon Dioxide 29 mmol/L (22-32); Chloride 105 mmol/L (98-107); Estimated Glomerular Filt Rate > 60 mL/min (>60); Glucose 127 mg/dL (80-110); HEMOLYSIS < 15 (0-50); Lipase 68 U/L (23-300); Potassium 4.1 mmol/L (3.4-5.1); Sodium 138 mmol/L (137-145); Total Protein 7.1 g/dL (6.3-8.2)
[2021-10-19] MEDS: SODIUM CHLORIDE 0.9% 1,000 ML 250 ML IV (12:26)
[2021-10-19 12:33] LABS: Appearance Urine UA CLEAR; Bilirubin Urine UA NEGATIVE (NEGATIVE); Color Urine UA YELLOW; Glucose Urine UA NEGATIVE (Negative); Ketones Urine UA NEGATIVE (NEGATIVE); Leukocyte Esterase Urine UA 2+ (NEGATIVE); Nitrite Urine UA NEGATIVE (Negative); Occult Blood Urine UA TRACE-INTACT (Negative); Protein Urine UA NEGATIVE (Negative); Specific Gravity Urine UA <=1.005 (1.000-1.035); Urobilinogen Urine UA 0.2 E.U./dL (0.2)
[2021-10-19 12:34] LABS: pH Urine UA 6.5 (4.5-8.0)
[2021-10-19 12:39] LABS: Bacteria Urine Few (2-10); Culture Indicated Urine Specimen Cultured; RBC Urine 1-5/HPF (0-5/HPF); WBC Urine 5-10/HPF (0-5/HPF)
[2021-10-19 12:55] LABS: COVID19 -Nasal RAPID Negative (Negative)
[2021-10-19] MEDS: cephALEXin 250 MG CAPSULE 500 MG PO (14:02)
== END 2021-10-19 14:07 | disposition home or self-care (01) ==
PROVIDERS: Emergency Provider Emergency Medicine; PCP Student in an Organized Health Care Education/Training Program
DX: N39.0 Urinary tract infection, site not specified (principal); R19.7 Diarrhea, unspecified; Z20.822 Contact with and (suspected) exposure to COVID-19; R10.30 Lower abdominal pain, unspecified
CPT/HCPCS: 36415; 80053; 81001; 83690; 85025; 87086; 87635; 93005; 96360; 96361; 99284; C9803

== ENCOUNTER → 2021-10-27 11:46 | Outpatient (CLI) | payer OTHER, SELFPAY ==
[2021-10-27 12:20] LABS: Appearance Urine UA CLEAR; Bilirubin Urine UA NEGATIVE (NEGATIVE); Color Urine UA YELLOW; Glucose Urine UA NEGATIVE (Negative); Ketones Urine UA NEGATIVE (NEGATIVE); Leukocyte Esterase Urine UA 1+ (NEGATIVE); Nitrite Urine UA NEGATIVE (Negative); Occult Blood Urine UA TRACE-INTACT (Negative); Protein Urine UA NEGATIVE (Negative); Specific Gravity Urine UA 1.015 (1.000-1.035); Urobilinogen Urine UA 0.2 E.U./dL (0.2)
[2021-10-27 12:47] LABS: Bacteria Urine None Seen; Culture Indicated Urine Specimen Cultured; Mucus Urine 1+ (Negative); RBC Urine 1-5/HPF (0-5/HPF); Squamous Epithelial Cell Urine 1-5 /HPF (0-5/HPF); Transitional Epi Cells Urine 0-1/HPF (0-5/HPF); WBC Urine 1-5/HPF (0-5/HPF)
== END ==
PROVIDERS: PCP Student in an Organized Health Care Education/Training Program; Referring Provider Student in an Organized Health Care Education/Training Program; Visit Provider Student in an Organized Health Care Education/Training Program
DX: N39.0 Urinary tract infection, site not specified (principal); R53.82 Chronic fatigue, unspecified
CPT/HCPCS: 81001; 87086

== ENCOUNTER → 2021-11-07 10:16 | Outpatient (CLI) | payer OTHER, SELFPAY ==
--- NOTE | 2021-11-07 10:17 | DI.CT.S_ITS ---
PROCEDURE: CT ABDOMEN PELVIS W CON INDICATIONS: abd pain ,fever, constipation diarrhea TECHNIQUE: After the administration of oral and intravenous contrast, axial sections were acquired from the lung bases to the pubic symphysis. Coronal and sagittal reformats were performed. For radiation dose reduction, the following was used: automated exposure control, adjustment of mA and/or kV according to patient size. COMPARISON:[facility], CT, CT ABDOMEN PELVIS W CON, 01/16/2019, 13:28. [facility], CT, ABDOMEN/PELVIS WITH CONTRAST, 01/12/2017, 14:21. FINDINGS: Image quality: Excellent. Lung bases: Unremarkable. Heart: No significant findings. ABDOMEN: Liver: The liver is hypodense suggesting hepatic steatosis. A cystic lesion is present within the dome of the right hepatic lobe suggesting a simple hepatic cyst. This is slightly increased in size from the study dated January 12, 2017. Differential considerations include hepatic hemangioma. Gallbladder: Unremarkable. Biliary ducts: Unremarkable. Pancreas: Unremarkable. Spleen: Unremarkable. Adrenal Glands: Unremarkable. Kidneys and Ureters: Normal in size and enhancement. A hyperdense exophytic mass or cystic lesion is present off the lower pole of the right kidney which measures 1.7 x 1.2 cm on the current study and previously measured 1.5 x 1.0 cm on the study dated January 12, 2017. A low-density cyst is present within lower pole of the left kidney. Stomach and Bowel: Stomach, small bowel loops, and colon are unremarkable. There are scattered sigmoid diverticula. No evidence for diverticulitis. The appendix is not visualized; however there is no discrete right lower quadrant fluid or fat stranding to suggest acute appendicitis. Peritoneum: No abnormal intraperitoneal fluid. No free air. Ventral Wall: No hernia. Abdominal Nodes: No retroperitoneal or mesenteric adenopathy by size criteria. Vessels: Aorta and inferior vena cava are normal in size. There are scattered atheromatous calcifications throughout the aorta and iliac arteries bilaterally. PELVIS: Pelvic Organs: Unremarkable. Bladder: Unremarkable. Pelvic Nodes: No enlarged lymph nodes. Miscellaneous: No inguinal hernias are seen. Bones: Unremarkable. IMPRESSION: 1. No acute intra-abdominal findings. Diverticulosis. No acute diverticulitis. The appendix is not visualized; however there are no ancillary findings to suggest acute appendicitis. 2. Hepatic steatosis. 3. Indolent growth within a probable right hyperdense renal cyst. Dictated by: Janel Granados M.D. on 11/07/2021 at 12:56 Approved by: Janel Granados M.D. on 11/07/2021 at 13:01
== END ==
PROVIDERS: PCP Student in an Organized Health Care Education/Training Program; Referring Provider Student in an Organized Health Care Education/Training Program; Visit Provider Student in an Organized Health Care Education/Training Program
DX: R10.84 Generalized abdominal pain (principal); R19.7 Diarrhea, unspecified; K57.30 Diverticulosis of large intestine without perforation or abscess without bleeding; K76.0 Fatty (change of) liver, not elsewhere classified
CPT/HCPCS: 74177

== ENCOUNTER 2021-11-09 10:40 | Emergency (ER) | payer OTHER, SELFPAY ==
[2021-11-09 10:44] VITALS: BP 137/65; PULSE 75; O2SAT 91
[2021-11-09 10:53] VITALS: BP 137/65; PULSE 77; RESP 16; TEMP 37.2; O2SAT 97; BMI 21.8
[2021-11-09 11:00] VITALS: PULSE 71; O2SAT 91
--- NOTE | 2021-11-09 11:00 | ED.GENADULT ---
HPI - General Adult General Chief complaint: Abdominal Pain Stated complaint: abd pain/weakness Time Seen by Provider: 11/09/21 11:00 History of Present Illness HPI narrative: 86-year-old woman with an almost year long history of abdominal pain nonspecific, recurrent diarrhea and constipation, recurrent concerns for urinary tract infection with antibiotic treatment however cultures not showing infection. She had stool studies looking for C diff that were unremarkable and 2 days ago had [address] scan of the abdomen and pelvis that was equally unremarkable. She describes an episode of upper respiratory type infection with fever, abdominal pain and was seen in the emergency department. Workup was unremarkable including COVID testing and she was treated for UTI with cephalexin that eventually grew out no bacteria on her urine culture. She states that the Keflex seemed to make her symptoms worse. She has complained of continued weakness and diarrhea with the last episode of diarrhea 48 hours ago. She does not have dysuria, flank pain and describes her generalized abdominal pain as moderate. She complains that she has no appetite, that food does not taste good, she is increasingly weak to the point where she is having trouble fixing meals and reports that she is the primary caregiver for her . She reports no cough no recurrent fevers, no palpitations no lower extremity edema no headaches. Her daughter felt that her weakness was progressing enough that an emergency room visit was appropriate today. Related Data Home Medications Medication Instructions Recorded Confirmed naproxen sodium 220 mg tablet 220 mg PO BID PRN pain 02/15/19 10/28/21 (Aleve) Previous Rx's Medication Instructions Recorded cyanocobalamin (vitamin B-12) 1,000 mcg IM QMONTH Low B12 #1 mL 09/09/18 1,000 mcg/mL injection solution Estriol 1mg Vaginal Alexus See Rx Instructions .Route 11/01/19 .COMPLEX #30 ea fluticasone propionate 50 1 spray intranasal BID #16 grams 03/25/21 mcg/actuation nasal spray,suspension ketorolac 0.5 % eye drops (Acular) 1 drp EYE-BOTH Q6-8H PRN itching 03/25/21 #5 mL levocetirizine 5 mg tablet 5 mg PO QPM #30 tabs 03/25/21 omeprazole 20 mg capsule,delayed 20 mg PO DAILY #30 caps 05/08/21 release simethicone 125 mg capsule (Gas 125 mg PO BID-QID PRN abdominal 05/26/21 Relief (simethicone)) distention #30 caps fluoxetine 10 mg capsule 20 mg PO DAILY #180 caps 10/30/21 magnesium citrate 150 ml PO BID PRN constipation 11/06/21 #296 mL Allergies Allergy/AdvReac Type Severity Reaction Status Date / Time Sulfa (Sulfonamide Allergy Unknown Verified 10/28/21 14:32 Antibiotics) nitrofurantoin AdvReac Intermediate Vomitting/ Verified 10/28/21 14:32 [From Macrobid] nausea/ all over pain. Review of Systems Review of Systems Narrative: Remainder of complete review of systems is otherwise unremarkable except for that included in the HPI. Patient History Medical History (Updated 11/09/21 @ 14:16 by Judy Roberson MD) Acquired absence of other specified parts of digestive tract Allergic rhinitis Anxiety about health B12 deficiency Caregiver role strain Chicken pox Colon polyps Cystocele Depression with anxiety Diverticular disease Family history of diabetes mellitus Family history of malignant neoplasm of bladder Family history of malignant neoplasm of trachea, bronchus and lung Family history of other mental and behavioral disorders History of recurrent ear infection Insomnia care home current use of inhaled steroid Major depressive disorder, single episode Measles Microscopic hematuria 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 Osteopenia Other migraine, not intractable, without status migrainosus Ovarian cyst Personal history of other malignant neoplasm of large intestine Seasonal allergic rhinitis (09/25/14) Stress incontinence Vaginitis, atrophic Vertigo Surgical History Anesthesia Broken nose Bunion Cataract extraction status of left eye Cataract extraction status of right eye H/O colectomy History of appendectomy History of cataract removal with insertion of prosthetic lens History of partial colectomy (~2009) S/P hysterectomy Status post hysterectomy Family History Brother Age: 83 Cancer Father Cancer Mother Mental health problem Dementia Grandmother Diabetes mellitus Social History marital status: number of children: 2 Smoking Status: Never smoker alcohol intake: current substance use type: does not use Smoking Status: Never smoker alcohol intake frequency: holidays/special occasions only Substance Use Type: does not use Exam Initial Vital Signs Initial Vital Signs: Vital Signs Pulse Rate 75 11/09/21 10:44 Blood Pressure 137/65 11/09/21 10:44 Pulse Oximetry 91 11/09/21 10:44 General: Frail, chronically ill-appearing but in no acute distress. Able to give a complete and coherent history. Well-nourished well-developed HEENT: Dry mucous membranes, normal sclera with reactive pupils, Neck: No JVD, supple Respiratory: Lungs with minor crackles in the left base, no rhonchi no wheezing. Full and symmetrical air movement Cardiac: Regular rate and rhythm no murmurs no bruits Abdomen: Soft, mild distention and mild diffuse tenderness without rebound or guarding,, good bowel tones, no flank pain Skin: Warm and dry, no rashes Neurologic: Grossly neurologically intact with no obvious asymmetries or abnormalities Extremities: No trauma, well perfused Psych: Cooperative, appropriate insight and affect Course Orders Ordered: ED Orders 11/09/21 10:30 Complete Blood Count AUTO DIFF Stat Comprehensive Metabolic Panel Stat Lipase Stat 11/09/21 10:57 EKG-12 Lead Stat 11/09/21 12:21 Urine Culture Stat Urine Microscopic Stat Discontinued Medications Sodium Chloride (Normal Saline 0.9%) 1,000 mls @ 1,000 mls/hr IV BOLUS ONE Stop: 11/09/21 12:29 Last Admin: 11/09/21 12:04 Dose: Not Given Documented By: CTS Vital Signs Vital signs: Vital Signs - 8 hr 11/09/21 10:53 11/09/21 10:44 11/09/21 10:44 Temperature 98.9 F Pulse Rate 77 75 Respiratory Rate 16 Blood Pressure 137/65 137/65 Pulse Oximetry 97 91 Oxygen Delivery Method Room Air 11/09/21 11:00 11/09/21 11:30 11/09/21 12:00 Temperature Pulse Rate 71 74 69 Respiratory Rate Blood Pressure Pulse Oximetry 91 92 93 Oxygen Delivery Method Medical Decision Making Lab Data Result diagrams: 11/09/21 10:30 11/09/21 10:30 Labs: Lab Results 11/09/21 11/09/21 11/09/21 Range/Units 10:30 10:30 12:21 WBC 7.6 (4.5-11.0) X10^3/uL RBC 4.61 (4.0-5.2) X10^6/uL Hgb 14.0 (12.0-16.0) g/dL Hct 40.9 (36-46) % MCV 88.7 (80-100) fL MCH 30.4 (26-34) PG MCHC 34.3 (30-36) % RDW 14.7 (11.6-14.8) % Plt Count 240 (150-400) X10^3/uL Neut % (Auto) 71.7 (50-75) % Lymph % (Auto) 19.7 L (25-40) % Emanuel % (Auto) 7.0 (3-14) % Eos % (Auto) 0.7 L (2-4) % Baso % (Auto) 0.9 (0-2) % Neut # (Auto) 5400 (3200-1940) /uL Lymph # (Auto) 1500 (3085-5411) /uL Emanuel # (Auto) 500 (0-900) /uL Eos # (Auto) 100 (0-450) /uL Baso # (Auto) 100 (0-100) /uL Sodium 137 (137-145) mmol/L Potassium 4.0 (3.4-5.1) mmol/L Chloride 102 (98-107) mmol/L Carbon Dioxide 24 (22-32) mmol/L BUN 10 (7-17) mg/dL Creatinine 0.69 (0.52-1.04) mg/dL Estimated GFR > 60 (>60) mL/min BUN/Creatinine Ratio 14.5 (6-22) Glucose 106 (80-110) mg/dL Calcium 9.2 (8.4-10.2) mg/dL Total Bilirubin 0.9 (0.2-1.3) mg/dL AST 21 (14-36) IU/L ALT 13 (<35) IU/L Alkaline Phosphatase 73 (38-126) U/L Total Protein 7.5 (6.3-8.2) g/dL Albumin 4.4 (3.5-5.0) g/dL Globulin 3.1 (1.7-4.1) g/dL Albumin/Globulin Ratio 1.4 (1.0-2.8) Lipase 103 (23-300) U/L Urine RBC 1-5/hpf (0-5/HPF) Urine WBC 1-5/hpf (0-5/HPF) Urine Bacteria None seen (None) Ur Culture Indicated? Specimen cultured Urine Dip Bedside Urine Glucose Negative Bedside Urine Bilirubin - Negative Bedside Urine Ketone - Negative Urine Specific [place] 1.015 Bedside Urine Occult Blood +/- Bedside Urine pH 6.0 Bedside Urine Protein - Negative Bedside Urine Urobilinogen - Negative Bedside Urine Nitrite - Negative Bedside Urine Leukocytes + 70 Esterase Point of care testing: Urine Dip Bedside Urine Glucose Negative Bedside Urine Bilirubin - Negative Bedside Urine Ketone - Negative Urine Specific [place] 1.015 Bedside Urine Occult Blood +/- Bedside Urine pH 6.0 Bedside Urine Protein - Negative Bedside Urine Urobilinogen - Negative Bedside Urine Nitrite - Negative Bedside Urine Leukocytes + [address] abd/pelvis, 11/07/21 outpatient: Radiologist's Impression: FINDINGS:? Image quality:? Excellent.? ? Lung bases:? Unremarkable.? ? Heart:? No significant findings. ? ? ABDOMEN: Liver:? The liver is hypodense suggesting hepatic steatosis.? A cystic lesion is present within the dome of the right hepatic lobe suggesting a simple hepatic cyst.? This is slightly increased in size from the study dated January 12, 2017. Differential considerations include hepatic hemangioma.? Gallbladder:? Unremarkable.? ? Biliary ducts:? Unremarkable.? ? Pancreas:? Unremarkable.? ? Spleen:? Unremarkable.? ? Adrenal Glands:? Unremarkable.? ? Kidneys and Ureters:? Normal in size and enhancement.? A hyperdense exophytic mass or cystic lesion is present off the lower pole of the right kidney which measures 1.7 x 1.2 cm on the current study and previously measured 1.5 x 1.0 cm on the study dated January 12, 2017. A low-density cyst is present within lower pole of the left kidney.? ? Stomach and Bowel:? Stomach, small bowel loops, and colon are unremarkable.? There are scattered sigmoid diverticula. No evidence for diverticulitis. The appendix is not visualized; however there is no discrete right lower quadrant fluid or fat stranding to suggest acute appendicitis. Peritoneum:? No abnormal intraperitoneal fluid.? No free air.? ? Ventral Wall: ? No hernia.? Abdominal Nodes:? No retroperitoneal or mesenteric adenopathy by size criteria.? Vessels:? Aorta and inferior vena cava are normal in size.? There are scattered atheromatous calcifications throughout the aorta and iliac arteries bilaterally. ? PELVIS: Pelvic Organs:? Unremarkable.? ? Bladder:? Unremarkable.? ? Pelvic Nodes: No enlarged lymph nodes.? Miscellaneous: No inguinal hernias are seen. ? ? ? Bones:? Unremarkable.? ? ? IMPRESSION:? ? 1. No acute intra-abdominal findings.? Diverticulosis.? No acute diverticulitis.? The appendix is not visualized; however there are no ancillary findings to suggest acute appendicitis. ? 2. Hepatic steatosis. ? 3. Indolent growth within a probable right hyperdense renal cyst.? ? ? Dictated by: Janel Granados M.D. on 11/07/2021 at 12:56? ?? ECG Data Interpretation: Sinus rhythm at a rate of 60 Normal intervals, normal axis No acute ischemic changes MDM Narrative Medical decision making narrative: 86-year-old woman with abdominal pain, vomiting and diarrhea. No vomiting or diarrhea for the last [address] scan 48 hours ago was unremarkable. Labs today are entirely reassuring with no evidence of anemia, infection, liver abnormalities. At this point I do not have an explanation for her continued chronic abdominal pain. Given the fact that she has had no diarrhea at all for the last 48 hours my suspicion for Clostridium difficile after her recent Keflex infection is low. There is no evidence of COVID, heart failure, no occult neoplasms appreciated on recent abdominal scanning and no pulmonary complaints. Will refer her back to her primary care physician and may need GI consult to get to more definitive diagnosis. As we were discussing her findings and benign workup, it becomes she likely is contributing to some of her own issues. She complains of constipation simply because she has not had a bowel movement despite not feeling that she needs to go. She has been eating less because she is worried about diarrhea. When she has not had a bowel movement she then is taking milk of magnesia which is causing the diarrhea which then leads her to not eat. She also notes that increasing stressors, such as taking care of her aging with memory issues, has always caused diarrhea for her. She states that she has seen her flowers salesperson and has not recommended additional colonoscopies after her colon cancer surgery 11 years ago. At this point there are no life-threatening etiologies identified and she is safe for home discharge Discharge Plan Departure Patient Disposition: Home Clinical Impression: Abdominal pain, Diarrhea Instructions: DI for Abdominal Pain-Adult Activity Restrictions/Additional Instructions: Thank you for coming in today Your workup was very reassuring. Based on your CT scan 2 days ago, you are not constipated (meaning completely backed up with stool), there are no recurrent tumors or masses in you do not have a bowel obstruction. The fact that you have not had diarrhea in the last 48 hours strongly suggests that you do not have Clostridium difficile, a complication of antibiotics. I would recommend that you stop using medications to make herself have a bowel movement when it has been a couple of days since having a bowel movement. You need to be eating regularly and unless you feel constipated(feel that there is actually too much stool inside can not come out) or having very hard and difficult to pass stools you do not need to use milk of magnesia or additional stool softeners. We briefly discussed some of the stressors that you are experiencing taking care of your . Being a primary caregiver is very difficult. You may be at a point were both you and your benefit from some additional help and I would encourage you to look into assisted living type arrangements. Please follow-up with your primary care physician Prescriptions: No Action cyanocobalamin (vitamin B-12) 1,000 mcg/mL solution 1,000 mcg IM QMONTH Qty: 1 0RF simethicone [Gas Relief (simethicone)] 125 mg capsule 125 mg PO BID-QID PRN (Reason: abdominal distention) Qty: 30 2RF Rx Instructions: Take 1 capsule 2-4 times per day for bloating/gas symptom omeprazole 20 mg capsule,delayed release(DR/EC) 20 mg PO DAILY Qty: 30 1RF Rx Instructions: Take 1 capsule each morning Estriol 1mg Vaginal Alexus See Rx Instructions .ROUTE .COMPLEX Qty: 30 2RF Rx Instructions: Insert one alexus vaginally at bedtime for 2 weeks, then every other night fluticasone propionate 50 mcg/actuation spray,suspension 1 spray Intranasal BID Qty: 16 12RF Rx Instructions: 1 spray each nostril up to 2x/day ketorolac [Acular] 0.5 % drops 1 drp EYE-BOTH Q6-8H PRN (Reason: itching) Qty: 5 5RF levocetirizine 5 mg tablet 5 mg PO QPM Qty: 30 3RF Rx Instructions: Take 1 tab daily for allergies fluoxetine 10 mg capsule 20 mg PO DAILY Qty: 180 3RF Rx Instructions: Take 2 tabs in the morning daily magnesium citrate Solution 150 ml PO BID PRN (Reason: constipation) Qty: 296 0RF Rx Instructions: Take 1/2 bottle tonight and 1/2 bottle tomorrow morning for bowel obstruction naproxen sodium [Aleve] 220 mg Tablet 220 mg PO BID PRN (Reason: pain) Referrals: Drew Mancera MD [Primary Care Provider] -
[2021-11-09 11:30] VITALS: PULSE 74; O2SAT 92
[2021-11-09 11:52] LABS: Add Manual Diff / Slide Review NO; Basophils Absolute Auto 100 /uL (0-100); Basophils Percent Auto 0.9 % (0-2); Eosinophils Absolute Auto 100 /uL (0-450); Eosinophils Percent Auto 0.7 % (2-4); Hematocrit 40.9 % (36-46); Lymphocytes Absolute Auto 1500 /uL (1100-4500); Lymphocytes Percent Auto 19.7 % (25-40); Mean Corpuscular HGB Conc 34.3 % (30-36); Mean Corpuscular Hemoglobin 30.4 PG (26-34); Mean Corpuscular Volume 88.7 fL (80-100); Monocytes Absolute Auto 500 /uL (0-900); Neutrophils Absolute Auto 5400 /uL (1500-7000); Neutrophils Percent Auto 71.7 % (50-75); Platelet Count 240 X10^3/uL (150-400); Red Blood Cell Count 4.61 X10^6/uL (4.0-5.2); Red Cell Distribution Width 14.7 % (11.6-14.8); White Blood Cell Count 7.6 X10^3/uL (4.5-11.0)
[2021-11-09 12:00] VITALS: PULSE 69; O2SAT 93
[2021-11-09 12:09] LABS: Alanine Aminotransferase 13 IU/L (<35); Albumin 4.4 g/dL (3.5-5.0); Albumin Globulin Ratio 1.4 (1.0-2.8); Alkaline Phosphatase 73 U/L (38-126); Aspartate Aminotransferase 21 IU/L (14-36); BUN Creatinine Ratio 14.5 (6-22); Bilirubin Total 0.9 mg/dL (0.2-1.3); Blood Urea Nitrogen 10 mg/dL (7-17); Calcium 9.2 mg/dL (8.4-10.2); Carbon Dioxide 24 mmol/L (22-32); Chloride 102 mmol/L (98-107); Estimated Glomerular Filt Rate > 60 mL/min (>60); Globulin 3.1 g/dL (1.7-4.1); Glucose 106 mg/dL (80-110); HEMOLYSIS 27 (0-50); Lipase 103 U/L (23-300); Sodium 137 mmol/L (137-145); Total Protein 7.5 g/dL (6.3-8.2)
[2021-11-09 12:55] LABS: Bacteria Urine None Seen; Culture Indicated Urine Specimen Cultured; RBC Urine 1-5/HPF (0-5/HPF); WBC Urine 1-5/HPF (0-5/HPF)
== END 2021-11-09 14:35 | disposition home or self-care (01) ==
PROVIDERS: Emergency Provider Emergency Medicine; PCP Student in an Organized Health Care Education/Training Program
DX: R10.9 Unspecified abdominal pain (principal); R19.7 Diarrhea, unspecified
CPT/HCPCS: 36415; 80053; 81003; 81015; 83690; 85025; 87086; 93005; 99283

== ENCOUNTER → 2022-01-08 12:53 | Outpatient (CLI) | payer OTHER, SELFPAY ==
[2022-01-08 14:45] LABS: Appearance Urine UA CLOUDY; Bilirubin Urine UA NEGATIVE (NEGATIVE); Color Urine UA YELLOW; Glucose Urine UA NEGATIVE (Negative); Ketones Urine UA NEGATIVE (NEGATIVE); Leukocyte Esterase Urine UA 3+ (NEGATIVE); Nitrite Urine UA POSITIVE (Negative); Occult Blood Urine UA 3+ (Negative); Protein Urine UA 1+ (Negative); Urobilinogen Urine UA 0.2 E.U./dL (0.2)
[2022-01-08 14:49] LABS: pH Urine UA 5.5 (4.5-8.0)
[2022-01-08 16:05] LABS: Bacteria Urine Many (>30); Culture Indicated Urine Specimen Cultured; RBC Urine 5-10/HPF (0-5/HPF); Squamous Epithelial Cell Urine 0-1 /HPF (0-5/HPF); WBC Urine >100/HPF (0-5/HPF)
== END ==
PROVIDERS: PCP Student in an Organized Health Care Education/Training Program; Referring Provider Student in an Organized Health Care Education/Training Program; Visit Provider Student in an Organized Health Care Education/Training Program
DX: R35.0 Frequency of micturition (principal); R39.89 Other symptoms and signs involving the genitourinary system; R53.83 Other fatigue
CPT/HCPCS: 81001; 87077; 87086; 87186

== ENCOUNTER 2022-01-14 10:34 | Emergency (ER) | payer OTHER, SELFPAY ==
[2022-01-14] VITALS (11 sets, daily range): BP systolic 132–145; BP diastolic 60–95; PULSE 71–86; RESP 17–22; TEMP 36.4; O2SAT 93–96; BMI 31.3
--- NOTE | 2022-01-14 10:47 | ED.FEMALEGU ---
HPI - Female Genitourinary General Chief complaint: Urogenital-Female Stated complaint: Bladder Pain Time Seen by Provider: 01/14/22 10:46 History of Present Illness HPI Narrative: Patient is an 86-year-old female history of frequent UTIs, she was diagnosed with a UTI on January 08 she was prescribed Keflex. Apparently the patient did not tolerate Keflex very well upset her stomach. She was seen by provider yesterday who changed the prescription to Cipro. She says that she has only taken 1 dose of the Cipro. She feels a little dizzy and weak. She continues to have some pelvic pain. She has no back pain. No nausea vomiting. No chest pain palpitations or other symptoms. Related Data Home Medications Medication Instructions Recorded Confirmed naproxen sodium 220 mg tablet 220 mg PO BID PRN pain 02/15/19 01/14/22 (Aleve) Previous Rx's Medication Instructions Recorded cyanocobalamin (vitamin B-12) 1,000 mcg IM QMONTH Low B12 #1 mL 09/09/18 1,000 mcg/mL injection solution fluticasone propionate 50 1 spray intranasal BID #16 grams 03/25/21 mcg/actuation nasal spray,suspension levocetirizine 5 mg tablet 5 mg PO QPM #30 tabs 03/25/21 omeprazole 20 mg capsule,delayed 20 mg PO DAILY #30 caps 05/08/21 release simethicone 125 mg capsule (Gas 125 mg PO BID-QID PRN abdominal 05/26/21 Relief (simethicone)) distention #30 caps fluoxetine 10 mg capsule 20 mg PO DAILY #180 caps 10/30/21 magnesium citrate 150 ml PO BID PRN constipation 11/06/21 #296 mL ciprofloxacin HCl 500 mg tablet 500 mg PO BID #10 tabs 01/11/22 Estriol 1mg Vaginal Alexus #1 ea 01/13/22 estradiol 10 mcg vaginal tablet 10 mcg vaginal DAILY 2 weeks #60 01/13/22 tabs Allergies Allergy/AdvReac Type Severity Reaction Status Date / Time Sulfa (Sulfonamide Allergy Unknown Verified 01/13/22 14:29 Antibiotics) cephalexin AdvReac Intermediate Abdominal Verified 01/13/22 14:29 Pain nitrofurantoin AdvReac Intermediate Vomitting/ Verified 01/13/22 14:29 [From Macrobid] nausea/ all over pain. Review of Systems Review of Systems Narrative: GENERAL: Denies chills, fatigue, malaise, fever, sweats, travel HEENT: Denies sinus pain, ear pain, sore throat, difficulty swallowing, neck pain RESPIRATORY: Denies dyspnea, cough, wheezing, hemoptysis, sputum. CARDIOVASCULAR: Denies chest pain, palpitations, orthopnea, edema GASTROINTESTINAL: Denies nausea, vomiting, abdominal pain, diarrhea, constipation, melena. : See HPI MUSCULOSKELETAL: Denies weakness, joint pain, or bony pain SKIN: No rash, no erythema, no pruritus NEUROLOGIC: Denies weakness, dizziness, headache, numbness, change in speech, confusion PSYCHIATRIC: No concerning psychosocial issues. 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 Major depressive disorder, single episode Measles Microscopic hematuria 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 Osteopenia Other migraine, not intractable, without status migrainosus Ovarian cyst Personal history of other malignant neoplasm of large intestine Recurrent UTI Seasonal allergic rhinitis (09/25/14) Stress incontinence Vaginitis, atrophic Vertigo Surgical History Anesthesia Broken nose Bunion Cataract extraction status of left eye Cataract extraction status of right eye H/O colectomy History of appendectomy History of cataract removal with insertion of prosthetic lens History of partial colectomy (~2009) S/P hysterectomy Status post hysterectomy Family History Brother Age: 83 Cancer Father Cancer Mother Mental health problem Dementia Grandmother Diabetes mellitus alcohol intake frequency: holidays/special occasions only Substance Use Type: does not use Exam Initial Vital Signs Initial Vital Signs: Vital Signs Temperature 97.6 F 01/14/22 10:35 Pulse Rate 86 01/14/22 10:35 Respiratory Rate 18 01/14/22 10:35 Blood Pressure 145/70 H 01/14/22 10:35 Pulse Oximetry 95 01/14/22 10:35 Oxygen Delivery Method 01/14/22 10:35 GENERAL: Alert pleasant 86-year-old female and in no acute distress. HEENT: Head atraumatic,EOMI, pupils reactive, face symmetric, moist mucous membranes CARDIOVASCULAR: Regular rate and rhythm without murmurs, rubs or gallops. RESPIRATORY: Breath sounds equal bilaterally, no wheezes rales or rhonchi. ABDOMEN: Soft, nontender. Normoactive bowel sounds all 4 quadrants. No guarding or rebound. : No CVA tenderness EXTREMITIES: Normal range of motion, no clubbing or edema. Neurovascularly intact NEUROLOGICAL: Alert and oriented x4.Normal gait and speech. SKIN: Warm, dry, no laceration, no petechiae, no rashes or lesions. Course Orders Ordered: ED Orders 01/14/22 10:40 CBC Auto Diff [Complete Blood Count AUTO DIFF] Stat CMP [Comprehensive Metabolic Panel] Stat Lactate (Lactic Acid) Stat Procalcitonin Stat 01/14/22 11:01 UA Complete [Urinalysis and Microscopic] Stat Urine Culture Stat 01/14/22 11:37 Blood Culture Stat Discontinued Medications Sodium Chloride (Normal Saline 0.9%) 1,000 mls @ 1,000 mls/hr IV BOLUS ONE Stop: 01/14/22 12:22 Last Infusion: 01/14/22 11:53 Dose: 0 mls/hr Documented By: Admin: 01/14/22 11:34 Dose: 1,000 mls/hr Documented By: JENNIFER Ondansetron HCl (Ondansetron 4 Mg/2 Ml Inj) 4 mg IV NOW ONE Stop: 01/14/22 13:10 Last Admin: 01/14/22 13:19 Dose: 4 mg Documented By: JENNIFER Vital Signs Vital signs: Vital Signs - 8 hr 01/14/22 11:30 01/14/22 11:30 01/14/22 11:47 Pulse Rate 75 79 Respiratory Rate 22 Blood Pressure 132/60 Pulse Oximetry 93 96 01/14/22 11:47 01/14/22 12:00 01/14/22 12:00 Pulse Rate 73 Respiratory Rate Blood Pressure 135/69 136/65 Pulse Oximetry 93 01/14/22 12:30 01/14/22 12:30 01/14/22 13:00 Pulse Rate 73 73 Respiratory Rate Blood Pressure 137/73 Pulse Oximetry 95 95 01/14/22 13:01 01/14/22 13:01 01/14/22 13:30 Pulse Rate 73 Respiratory Rate Blood Pressure 134/95 H 141/66 H Pulse Oximetry 95 01/14/22 13:30 Pulse Rate 71 Respiratory Rate 18 Blood Pressure Pulse Oximetry 96 MDM - Female Genitourinary Lab Data Result diagrams: 01/14/22 10:40 01/14/22 10:40 Labs: Lab Results 01/14/22 01/14/22 01/14/22 Range/Units 10:40 10:40 10:40 WBC 7.7 (4.5-11.0) X10^3/uL RBC 4.33 (4.0-5.2) X10^6/uL Hgb 13.2 (12.0-16.0) g/dL Hct 38.6 (36-46) % MCV 89.2 (80-100) fL MCH 30.5 (26-34) PG MCHC 34.2 (30-36) % RDW 14.6 (11.6-14.8) % Plt Count 201 (150-400) X10^3/uL Neut % (Auto) 74.8 (50-75) % Lymph % (Auto) 16.9 L (25-40) % [place] % (Auto) 6.4 (3-14) % Eos % (Auto) 0.9 L (2-4) % Baso % (Auto) 1.0 (0-2) % Neut # (Auto) 5700 (7638-8865) /uL Lymph # (Auto) 1300 (8244-1380) /uL [place] # (Auto) 500 (0-900) /uL Eos # (Auto) 100 (0-450) /uL Baso # (Auto) 100 (0-100) /uL Sodium 138 (137-145) mmol/L Potassium 4.0 (3.4-5.1) mmol/L Chloride 106 (98-107) mmol/L Carbon Dioxide 25 (22-32) mmol/L BUN 14 (7-17) mg/dL Creatinine 0.70 (0.52-1.04) mg/dL Estimated GFR > 60 (>60) mL/min BUN/Creatinine Ratio 20.0 (6-22) Glucose 139 H (80-110) mg/dL Lactate 2.2 H (0.7-2.1) mmol/L Calcium 8.9 (8.4-10.2) mg/dL Total Bilirubin 0.5 (0.2-1.3) mg/dL AST 20 (14-36) IU/L ALT 14 (<35) IU/L Alkaline Phosphatase 68 (38-126) U/L Total Protein 7.1 (6.3-8.2) g/dL Albumin 4.0 (3.5-5.0) g/dL Globulin 3.1 (1.7-4.1) g/dL Albumin/Globulin Ratio 1.3 (1.0-2.8) Procalcitonin (<0.5) ng/mL Urine Color Urine Appearance Urine pH (4.5-8.0) Ur Specific [place] (1.000-1.035) Urine Protein (Negative) Urine Glucose (UA) (Negative) g/dL Urine Ketones (NEGATIVE) Urine Occult Blood (Negative) Urine Nitrate (Negative) Urine Bilirubin (NEGATIVE) Urine Urobilinogen (0.2) E.U./dL Ur Leukocyte Esterase (NEGATIVE) Urine RBC (0-5/HPF) Urine WBC (0-5/HPF) Ur Squamous Epith Cells (0-5/HPF) Amorphous Sediment Urine Bacteria (None) Ur Culture Indicated? 01/14/22 01/14/22 Range/Units 10:40 11:01 WBC (4.5-11.0) X10^3/uL RBC (4.0-5.2) X10^6/uL Hgb (12.0-16.0) g/dL Hct (36-46) % MCV (80-100) fL MCH (26-34) PG MCHC (30-36) % RDW (11.6-14.8) % Plt Count (150-400) X10^3/uL Neut % (Auto) (50-75) % Lymph % (Auto) (25-40) % [place] % (Auto) (3-14) % Eos % (Auto) (2-4) % Baso % (Auto) (0-2) % Neut # (Auto) (4960-4094) /uL Lymph # (Auto) (4770-0653) /uL [place] # (Auto) (0-900) /uL Eos # (Auto) (0-450) /uL Baso # (Auto) (0-100) /uL Sodium (137-145) mmol/L Potassium (3.4-5.1) mmol/L Chloride (98-107) mmol/L Carbon Dioxide (22-32) mmol/L BUN (7-17) mg/dL Creatinine (0.52-1.04) mg/dL Estimated GFR (>60) mL/min BUN/Creatinine Ratio (6-22) Glucose (80-110) mg/dL Lactate (0.7-2.1) mmol/L Calcium (8.4-10.2) mg/dL Total Bilirubin (0.2-1.3) mg/dL AST (14-36) IU/L ALT (<35) IU/L Alkaline Phosphatase (38-126) U/L Total Protein (6.3-8.2) g/dL Albumin (3.5-5.0) g/dL Globulin (1.7-4.1) g/dL Albumin/Globulin Ratio (1.0-2.8) Procalcitonin 0.04 (<0.5) ng/mL Urine Color Yellow Urine Appearance Clear Urine pH 7.0 (4.5-8.0) Ur Specific [place] 1.010 (1.000-1.035) Urine Protein Negative (Negative) Urine Glucose (UA) Negative (Negative) g/dL Urine Ketones Negative (NEGATIVE) Urine Occult Blood Trace-intact (Negative) Urine Nitrate Negative (Negative) Urine Bilirubin Negative (NEGATIVE) Urine Urobilinogen 0.2 (0.2) E.U./dL Ur Leukocyte Esterase Trace H (NEGATIVE) Urine RBC 1-5/hpf (0-5/HPF) Urine WBC 0-1/hpf (0-5/HPF) Ur Squamous Epith Cells 0-1 /hpf (0-5/HPF) Amorphous Sediment 1+ Urine Bacteria None seen (None) Ur Culture Indicated? Specimen cultured MDM Narrative Medical decision making narrative: rine Culture Final 01/10/22-6672 Organism 1 Escherichia coli [place] Count >100,000 CFU/ml 1. Escherichia coli M.I.C. RX --------- --- * Amoxicillin/Clavulanate <=2 S * Ampicillin 4 S * Ampicillin/Sulbactam <=2 S * Cefazolin <=4 S * Cefepime <=1 S * Ceftazidime <=1 S * Ceftriaxone <=1 S * Ciprofloxacin <=0.25 S * Ertapenem <=0.5 S * Gentamicin <=1 S * Imipenem <=0.25 S * Levofloxacin <=0.12 S * Nitrofurantoin <=16 S * Tobramycin <=1 S * Trimethoprim/Sulfamethoxazole <=20 S * Piperacillin/Tazobactam <=4 S Patient has had UTIs was previously started on Keflex sounds like she did tolerate that medication has only taken blood dose of Cipro. At this time she does not appear septic lactic acid is mildly elevated and was treated with IV fluids but no leukocytosis fever tachycardia or hypotension. She overall appears very well. According to recent culture it is pansensitive. Recommend she finish her antibiotic as prescribed Discharge Plan Departure Patient Disposition: Home Clinical Impression: Urinary tract infection Instructions: DI for Urinary Tract Infection (UTI) Activity Restrictions/Additional Instructions: *You have been diagnosed with UTI *What to do: At this time please finish your current antibiotic ciprofloxacin. I think it will work. Please follow-up with urology as scheduled *Continue to take medications as directed *Follow up with your primary care provider in 2-3 days or call [phone] *Return to ER if you should have increasing confusion pain vomiting or any new, worsening or concerning symptoms Prescriptions: No Action cyanocobalamin (vitamin B-12) 1,000 mcg/mL solution 1,000 mcg IM QMONTH Qty: 1 0RF ciprofloxacin HCl 500 mg tablet 500 mg PO BID Qty: 10 0RF simethicone [Gas Relief (simethicone)] 125 mg capsule 125 mg PO BID-QID PRN (Reason: abdominal distention) Qty: 30 2RF Rx Instructions: Take 1 capsule 2-4 times per day for bloating/gas symptom omeprazole 20 mg capsule,delayed release(DR/EC) 20 mg PO DAILY Qty: 30 1RF Rx Instructions: Take 1 capsule each morning fluticasone propionate 50 mcg/actuation spray,suspension 1 spray Intranasal BID Qty: 16 12RF Rx Instructions: 1 spray each nostril up to 2x/day levocetirizine 5 mg tablet 5 mg PO QPM Qty: 30 3RF Rx Instructions: Take 1 tab daily for allergies fluoxetine 10 mg capsule 20 mg PO DAILY Qty: 180 3RF Rx Instructions: Take 2 tabs in the morning daily magnesium citrate Solution 150 ml PO BID PRN (Reason: constipation) Qty: 296 0RF Rx Instructions: Take 1/2 bottle tonight and 1/2 bottle tomorrow morning for bowel obstruction estradiol 10 mcg tablet 10 mcg vaginal DAILY 14 Days Qty: 60 3RF Rx Instructions: Insert vaginally each night at bedtime x14 days, then -- therafter (DME) Estriol 1mg Vaginal Alexus See Rx Instructions .Route .MEDSUPPLY Qty: 1 2RF Rx Instructions: Insert one alexus vaginally at bedtime for 2 weeks, then every other night naproxen sodium [Aleve] 220 mg Tablet 220 mg PO BID PRN (Reason: pain) Referrals: Drew Mancera MD [Primary Care Provider] - Visit Report Forms: Patient Portal/API
[2022-01-14 11:00] LABS: Add Manual Diff / Slide Review NO; Basophils Absolute Auto 100 /uL (0-100); Eosinophils Absolute Auto 100 /uL (0-450); Eosinophils Percent Auto 0.9 % (2-4); Hematocrit 38.6 % (36-46); Hemoglobin 13.2 g/dL (12.0-16.0); Lymphocytes Absolute Auto 1300 /uL (1100-4500); Lymphocytes Percent Auto 16.9 % (25-40); Mean Corpuscular HGB Conc 34.2 % (30-36); Mean Corpuscular Hemoglobin 30.5 PG (26-34); Mean Corpuscular Volume 89.2 fL (80-100); Monocytes Absolute Auto 500 /uL (0-900); Monocytes Percent Auto 6.4 % (3-14); Neutrophils Absolute Auto 5700 /uL (1500-7000); Neutrophils Percent Auto 74.8 % (50-75); Platelet Count 201 X10^3/uL (150-400); Red Blood Cell Count 4.33 X10^6/uL (4.0-5.2); Red Cell Distribution Width 14.6 % (11.6-14.8); White Blood Cell Count 7.7 X10^3/uL (4.5-11.0)
[2022-01-14 11:04] LABS: Appearance Urine UA CLEAR; Bilirubin Urine UA NEGATIVE (NEGATIVE); Color Urine UA YELLOW; Glucose Urine UA NEGATIVE (Negative); Ketones Urine UA NEGATIVE (NEGATIVE); Leukocyte Esterase Urine UA TRACE (NEGATIVE); Nitrite Urine UA NEGATIVE (Negative); Occult Blood Urine UA TRACE-INTACT (Negative); Protein Urine UA NEGATIVE (Negative); Urobilinogen Urine UA 0.2 E.U./dL (0.2)
[2022-01-14 11:12] LABS: Amorphous Sediment Urine 1+; Bacteria Urine None Seen; Culture Indicated Urine Specimen Cultured; RBC Urine 1-5/HPF (0-5/HPF); Squamous Epithelial Cell Urine 0-1 /HPF (0-5/HPF); WBC Urine 0-1/HPF (0-5/HPF)
[2022-01-14 11:12] LABS: Lactate (Lactic Acid) 2.2 mmol/L (0.7-2.1)
[2022-01-14 11:13] LABS: Alanine Aminotransferase 14 IU/L (<35); Albumin Globulin Ratio 1.3 (1.0-2.8); Alkaline Phosphatase 68 U/L (38-126); Aspartate Aminotransferase 20 IU/L (14-36); Bilirubin Total 0.5 mg/dL (0.2-1.3); Blood Urea Nitrogen 14 mg/dL (7-17); Calcium 8.9 mg/dL (8.4-10.2); Carbon Dioxide 25 mmol/L (22-32); Chloride 106 mmol/L (98-107); Estimated Glomerular Filt Rate > 60 mL/min (>60); Globulin 3.1 g/dL (1.7-4.1); Glucose 139 mg/dL (80-110); HEMOLYSIS 28 (0-50); Sodium 138 mmol/L (137-145); Total Protein 7.1 g/dL (6.3-8.2)
[2022-01-14 11:30] LABS: Procalcitonin 0.04 ng/mL (<0.5)
[2022-01-14] MEDS: SODIUM CHLORIDE 0.9% 1,000 ML 1000 ML IV (11:34)
[2022-01-14 12:57] LABS: Reflexed Lactate in 2 Hours Y
[2022-01-14] MEDS: ONDANSETRON 4 MG/2 ML INJ IV (13:19)
== END 2022-01-14 13:41 | disposition home or self-care (01) ==
PROVIDERS: Emergency Provider Emergency Medicine; PCP Student in an Organized Health Care Education/Training Program
DX: N39.0 Urinary tract infection, site not specified (principal)
CPT/HCPCS: 36415; 80053; 81001; 83605; 84145; 85025; 87040; 87086; 96374; 99284; J2405

== ENCOUNTER → 2022-01-22 13:44 | Outpatient (CLI) | payer OTHER, SELFPAY ==
[2022-01-22 15:39] LABS: Appearance Urine UA SL CLOUDY; Bilirubin Urine UA NEGATIVE (NEGATIVE); Color Urine UA YELLOW; Glucose Urine UA NEGATIVE (Negative); Ketones Urine UA NEGATIVE (NEGATIVE); Leukocyte Esterase Urine UA 3+ (NEGATIVE); Nitrite Urine UA NEGATIVE (Negative); Occult Blood Urine UA 2+ (Negative); Protein Urine UA NEGATIVE (Negative); Specific Gravity Urine UA 1.015 (1.000-1.035); Urobilinogen Urine UA 0.2 E.U./dL (0.2)
[2022-01-22 15:40] LABS: pH Urine UA 5.5 (4.5-8.0)
[2022-01-22 16:00] LABS: Bacteria Urine Moderate (10-30); Culture Indicated Urine Specimen Cultured; RBC Urine 1-5/HPF (0-5/HPF); Squamous Epithelial Cell Urine 1-5 /HPF (0-5/HPF); Transitional Epi Cells Urine 5-10/HPF (0-5/HPF); WBC Urine 30-100/HPF (0-5/HPF)
== END ==
PROVIDERS: PCP Student in an Organized Health Care Education/Training Program; Referring Provider Nurse Practitioner; Visit Provider Nurse Practitioner
DX: N39.0 Urinary tract infection, site not specified (principal); R35.0 Frequency of micturition
CPT/HCPCS: 81001; 87077; 87086; 87186

== ENCOUNTER → 2022-02-02 08:48 | Outpatient (CLI) | payer OTHER, SELFPAY ==
[2022-02-02 11:12] LABS: Appearance Urine UA SL CLOUDY; Bilirubin Urine UA NEGATIVE (NEGATIVE); Color Urine UA YELLOW; Glucose Urine UA NEGATIVE (Negative); Ketones Urine UA NEGATIVE (NEGATIVE); Leukocyte Esterase Urine UA 1+ (NEGATIVE); Nitrite Urine UA NEGATIVE (Negative); Occult Blood Urine UA 2+ (Negative); Protein Urine UA NEGATIVE (Negative); Specific Gravity Urine UA 1.015 (1.000-1.035); Urobilinogen Urine UA 0.2 E.U./dL (0.2)
[2022-02-02 11:41] LABS: Bacteria Urine Few (2-10); Culture Indicated Urine Specimen Cultured; RBC Urine 1-5/HPF (0-5/HPF); Squamous Epithelial Cell Urine 5-10 /HPF (0-5/HPF); WBC Urine 5-10/HPF (0-5/HPF)
== END ==
PROVIDERS: PCP Student in an Organized Health Care Education/Training Program; Referring Provider Internal Medicine; Visit Provider Internal Medicine
DX: N39.0 Urinary tract infection, site not specified (principal); R30.0 Dysuria
CPT/HCPCS: 81001; 87086

== ENCOUNTER → 2022-02-12 10:29 | Outpatient (CLI) | payer OTHER, SELFPAY ==
[2022-02-12 11:45] LABS: Appearance Urine UA CLEAR; Bilirubin Urine UA NEGATIVE (NEGATIVE); Color Urine UA YELLOW; Glucose Urine UA NEGATIVE (Negative); Ketones Urine UA NEGATIVE (NEGATIVE); Leukocyte Esterase Urine UA 1+ (NEGATIVE); Nitrite Urine UA NEGATIVE (Negative); Occult Blood Urine UA 1+ (Negative); Protein Urine UA NEGATIVE (Negative); Specific Gravity Urine UA <=1.005 (1.000-1.035); Urobilinogen Urine UA 0.2 E.U./dL (0.2)
[2022-02-12 11:48] LABS: pH Urine UA 5.5 (4.5-8.0)
[2022-02-12 11:52] LABS: RBC Urine 0-1/HPF (0-5/HPF); Squamous Epithelial Cell Urine 5-10 /HPF (0-5/HPF); WBC Urine 0-1/HPF (0-5/HPF)
[2022-02-12 11:53] LABS: Bacteria Urine None Seen; Culture Indicated Urine Cult Not Indicated
== END ==
PROVIDERS: PCP Student in an Organized Health Care Education/Training Program; Referring Provider Student in an Organized Health Care Education/Training Program; Visit Provider Student in an Organized Health Care Education/Training Program
DX: N39.0 Urinary tract infection, site not specified (principal)
CPT/HCPCS: 81001

== ENCOUNTER → 2022-04-11 13:18 | Outpatient (CLI) | payer OTHER, SELFPAY | PROVIDERS: PCP Student in an Organized Health Care Education/Training Program; Visit Provider Registered Nurse | DX: N39.0 Urinary tract infection, site not specified (principal) | CPT/HCPCS: 87077; 87086; 87186 ==

== ENCOUNTER → 2022-04-20 12:41 | Outpatient (CLI) | payer OTHER, SELFPAY ==
[2022-04-20 15:32] LABS: BUN Creatinine Ratio 17.9 (6-22); Blood Urea Nitrogen 14 mg/dL (7-17); Calcium 9.3 mg/dL (8.4-10.2); Carbon Dioxide 27 mmol/L (22-32); Chloride 104 mmol/L (98-107); Estimated Glomerular Filt Rate > 60 mL/min (>60); Glucose 86 mg/dL (80-110); HEMOLYSIS < 15 (0-50); Potassium 4.7 mmol/L (3.4-5.1); Sodium 139 mmol/L (137-145)
== END ==
PROVIDERS: PCP Student in an Organized Health Care Education/Training Program; Referring Provider Urology; Visit Provider Urology
DX: N39.0 Urinary tract infection, site not specified (principal); R31.29 Other microscopic hematuria; N95.2 Postmenopausal atrophic vaginitis; Z80.52 Family history of malignant neoplasm of bladder; Z77.22 Contact with and (suspected) exposure to environmental tobacco smoke (acute) (chronic)
CPT/HCPCS: 36415; 80048; 81002; 87086; 99214

== ENCOUNTER → 2022-05-05 14:03 | Outpatient (CLI) | payer OTHER, SELFPAY ==
--- NOTE | 2022-05-05 14:05 | DI.CT.S_ITS ---
PROCEDURE: CT ABDOMEN PELVIS WO/W CON INDICATIONS: Recurrent urinary tract infection, secondhand smoke, TECHNIQUE: Optional 5 mm thick noncontrast images acquired from the diaphragm to the symphysis pubis. After the administration of intravenous contrast, 5 mm thick images acquired from the diaphragm to the symphysis pubis after a 10-minute delay. 2 mm thick coronal and sagittal reformats were then performed of the kidneys and ureters. For radiation dose reduction, the following was used: automated exposure control, adjustment of mA and/or kV according to patient size. COMPARISON: [facility], CT, CT ABDOMEN PELVIS W CON, 11/07/2021, 12:23. FINDINGS: Image quality: Excellent. Lung bases: Lung bases are clear. Heart size is normal. Urinary system: Both kidneys are normal in size, without hydronephrosis or nephrolithiasis on pre-contrast images. No perinephric fat stranding. There is normal bilateral renal enhancement. A simple 3.6 cm cyst is seen at the inferior pole of the left kidney. A 1.8 x 1.1 x 1.3 cm partially exophytic lesion is seen arising from the inferior pole of the right kidney with attenuation values of 45 Hounsfield units on precontrast images and 91 Hounsfield units on postcontrast images. Additional bilateral subcentimeter hypoattenuating lesions are too small to characterize. Renal calyces appear normal in morphology when filled with contrast. Opacified portions of both ureters demonstrate normal caliber. Bladder is mild underdistended. No focal bladder wall thickening or intraluminal mass is seen. No calcified bladder stones. Other solid organs: A 2.3 cm hypoattenuating lesion in segment 7 demonstrates peripheral discontinuous enhancement on postcontrast images, consistent with a benign hemangioma. Dependent sludge is seen in the gallbladder. Biliary system is non dilated. Pancreas enhances normally. Spleen is normal in size and enhancement. No adrenal nodules. Peritoneum and bowel: Multiple diverticula are seen in the colon without signs of acute diverticulitis. Small bowel loops are unremarkable. No free fluid or air. Nodes and vessels: No retroperitoneal or mesenteric adenopathy by size criteria. Aorta and inferior vena cava are normal in size. Abdominal wall: No ventral hernias. Pelvis: No pathologic free pelvic fluid. No inguinal hernias or adenopathy. Status post hysterectomy. No adnexal mass. Bones: Generalized osteopenia. No suspicious bony lesions. No vertebral body compression fractures. IMPRESSION: 1. No suspicious urothelial lesion. No nephrolithiasis. 2. A 1.8 cm enhancing mass at the inferior pole of the right kidney is suspicious for a small renal cell carcinoma. 3. Colonic diverticulosis without signs of acute diverticulitis. Approved by: Isaiah Alcantar M.D. on 05/06/2022 at 15:43
== END ==
PROVIDERS: PCP Student in an Organized Health Care Education/Training Program; Referring Provider Urology; Visit Provider Urology
DX: R31.29 Other microscopic hematuria (principal); N39.0 Urinary tract infection, site not specified; K57.90 Diverticulosis of intestine, part unspecified, without perforation or abscess without bleeding; N28.89 Other specified disorders of kidney and ureter; Z77.22 Contact with and (suspected) exposure to environmental tobacco smoke (acute) (chronic)
CPT/HCPCS: 74178; Q9967

== ENCOUNTER → 2022-05-08 14:16 | Outpatient (CLI) | payer OTHER, SELFPAY | PROVIDERS: PCP Student in an Organized Health Care Education/Training Program; Visit Provider Urology | DX: N39.0 Urinary tract infection, site not specified (principal); R31.29 Other microscopic hematuria; Z95.2 Presence of prosthetic heart valve | CPT/HCPCS: 52000; 81002; 87086 ==

== ENCOUNTER → 2022-07-27 13:11 | Outpatient (CLI) | payer OTHER, SELFPAY ==
[2022-07-27 14:02] LABS: Appearance Urine UA CLEAR; Bilirubin Urine UA NEGATIVE (NEGATIVE); Color Urine UA YELLOW; Glucose Urine UA NEGATIVE (Negative); Ketones Urine UA NEGATIVE (NEGATIVE); Leukocyte Esterase Urine UA 2+ (NEGATIVE); Nitrite Urine UA NEGATIVE (Negative); Occult Blood Urine UA 1+ (Negative); Protein Urine UA NEGATIVE (Negative); Specific Gravity Urine UA 1.025 (1.000-1.035); Urobilinogen Urine UA 0.2 E.U./dL (0.2)
[2022-07-27 14:06] LABS: RBC Urine 5-10/HPF (0-5/HPF); Squamous Epithelial Cell Urine 1-5 /HPF (0-5/HPF); WBC Urine 10-30/HPF (0-5/HPF)
[2022-07-27 14:07] LABS: Bacteria Urine Moderate (10-30); Culture Indicated Urine Specimen Cultured
[2022-07-27 14:30] LABS: Alanine Aminotransferase 15 IU/L (<35); Albumin 4.3 g/dL (3.5-5.0); Albumin Globulin Ratio 1.4 (1.0-2.8); Alkaline Phosphatase 65 U/L (38-126); Aspartate Aminotransferase 21 IU/L (14-36); Bilirubin Total 0.7 mg/dL (0.2-1.3); Blood Urea Nitrogen 13 mg/dL (7-17); Calcium 8.7 mg/dL (8.4-10.2); Carbon Dioxide 23 mmol/L (22-32); Chloride 102 mmol/L (98-107); Estimated Glomerular Filt Rate > 60 mL/min (>60); Globulin 3.1 g/dL (1.7-4.1); Glucose 114 mg/dL (80-110); HEMOLYSIS 20 (0-50); Potassium 3.9 mmol/L (3.4-5.1); Sodium 135 mmol/L (137-145); Total Protein 7.4 g/dL (6.3-8.2)
[2022-07-27 14:48] LABS: Free T3, Triiodothyronine Free 2.74 pg/mL (2.77-5.27)
== END ==
PROVIDERS: Nurse Practitioner; PCP Student in an Organized Health Care Education/Training Program; Referring Provider Student in an Organized Health Care Education/Training Program; Visit Provider Student in an Organized Health Care Education/Training Program
DX: F41.8 Other specified anxiety disorders (principal); N39.0 Urinary tract infection, site not specified; R41.0 Disorientation, unspecified
CPT/HCPCS: 36415; 80053; 81001; 84439; 84443; 84481; 87086

== ENCOUNTER → 2022-08-10 12:17 | Outpatient (CLI) | payer OTHER, SELFPAY ==
[2022-08-10 13:25] LABS: Appearance Urine UA SL CLOUDY; Bilirubin Urine UA 1+ (NEGATIVE); Color Urine UA YELLOW; Glucose Urine UA NEGATIVE (Negative); Ketones Urine UA NEGATIVE (NEGATIVE); Leukocyte Esterase Urine UA 2+ (NEGATIVE); Nitrite Urine UA NEGATIVE (Negative); Occult Blood Urine UA 1+ (Negative); Protein Urine UA TRACE (Negative); Specific Gravity Urine UA >=1.030 (1.000-1.035)
[2022-08-10 13:38] LABS: Amorphous Sediment Urine 1+; Bacteria Urine Few (2-10); Ictotest Urine Negative (Negative); RBC Urine 1-5/HPF (0-5/HPF); Squamous Epithelial Cell Urine 1-5 /HPF (0-5/HPF); WBC Urine 5-10/HPF (0-5/HPF)
[2022-08-10 13:39] LABS: Culture Indicated Urine Specimen Cultured
== END ==
PROVIDERS: PCP Student in an Organized Health Care Education/Training Program; Referring Provider Nurse Practitioner; Visit Provider Nurse Practitioner
DX: N39.0 Urinary tract infection, site not specified (principal)
CPT/HCPCS: 81001; 87086

== ENCOUNTER → 2022-08-17 14:56 | Outpatient (CLI) | payer OTHER, SELFPAY ==
[2022-08-17 16:52] LABS: BUN Creatinine Ratio 16.4 (6-22); Blood Urea Nitrogen 10 mg/dL (7-17); Calcium 9.1 mg/dL (8.4-10.2); Carbon Dioxide 26 mmol/L (22-32); Chloride 94 mmol/L (98-107); Estimated Glomerular Filt Rate > 60 mL/min (>60); Glucose 100 mg/dL (80-110); HEMOLYSIS < 15 (0-50); Potassium 4.2 mmol/L (3.4-5.1); Sodium 130 mmol/L (137-145)
== END ==
PROVIDERS: PCP Student in an Organized Health Care Education/Training Program; Referring Provider Urology; Visit Provider Urology
DX: N28.9 Disorder of kidney and ureter, unspecified (principal)
CPT/HCPCS: 36415; 80048

== ENCOUNTER → 2022-08-19 09:26 | Outpatient (CLI) | payer OTHER, SELFPAY ==
[2022-08-19 10:22] LABS: Appearance Urine UA CLEAR; Bilirubin Urine UA NEGATIVE (NEGATIVE); Color Urine UA YELLOW; Glucose Urine UA NEGATIVE (Negative); Ketones Urine UA NEGATIVE (NEGATIVE); Leukocyte Esterase Urine UA 1+ (NEGATIVE); Nitrite Urine UA NEGATIVE (Negative); Occult Blood Urine UA TRACE-INTACT (Negative); Protein Urine UA NEGATIVE (Negative); Urobilinogen Urine UA 0.2 E.U./dL (0.2)
[2022-08-19 10:23] LABS: pH Urine UA 6.5 (4.5-8.0)
[2022-08-19 10:41] LABS: Bacteria Urine Occasional (0-1); Culture Indicated Urine Specimen Cultured; RBC Urine None Seen (0-5/HPF); Squamous Epithelial Cell Urine 5-10 /HPF (0-5/HPF); WBC Urine 1-5/HPF (0-5/HPF)
== END ==
PROVIDERS: PCP Student in an Organized Health Care Education/Training Program; Referring Provider Nurse Practitioner; Visit Provider Nurse Practitioner
DX: Z87.440 Personal history of urinary (tract) infections (principal)
CPT/HCPCS: 81003; 81015; 87086

== ENCOUNTER → 2022-08-28 13:47 | Outpatient (CLI) | payer OTHER, SELFPAY ==
--- NOTE | 2022-08-28 13:48 | DI.CT.S_ITS ---
PROCEDURE: CT ABDOMEN RENAL PROTOCOL INDICATIONS: Right lower pole renal lesion TECHNIQUE: Optional 5 mm thick noncontrast images acquired from the diaphragm to the iliac crests. After the administration of intravenous contrast, 5 mm thick images again acquired from the diaphragm to the iliac crests in the arterial and urographic phases. 5 mm thick coronal and sagittal reformats were then acquired. For radiation dose reduction, the following was used: automated exposure control, adjustment of mA and/or kV according to patient size. COMPARISON: [facility], CT, CT ABDOMEN PELVIS W CON, 01/16/2019, 13:28. [facility], CT, CT ABDOMEN PELVIS W CON, 11/07/2021, 12:23. [facility], CT, ABDOMEN/PELVIS WITH CONTRAST, 07/18/2015, 12:26. FINDINGS: Image quality: Excellent. Lung bases: Left basilar atelectasis. Small pleural effusion. Heart size is normal. Small nodule in the left breast is unchanged. Genitourinary: Right kidney inferior pole lesion measuring 1.8 x 1.2 cm, (), previously 1.9 x 1.1 cm, and more remotely 1.7 x 1 cm on 07/18/2015. The lesion measures 50 Hounsfield units on the noncontrast series and is enhancing. Simple cyst at the inferior pole of the left kidney measuring 4.7 cm. No hydronephrosis. No hydroureter or ureteral filling defect demonstrated. Other solid organs: Liver is normal in size. Small hemangioma in the right dome of the liver measuring 1.6 cm is unchanged. Gallbladder is unremarkable. Biliary system is non dilated. Small pancreatic cysts measuring 0.9 cm and 0.6 cm are unchanged since at least 2018. Spleen is normal in size and enhancement. No adrenal nodules. Peritoneum and bowel: Unenhanced bowel loops are normal in wall thickness and caliber. Diverticulosis. No free fluid or air. Nodes and vessels: No retroperitoneal or mesenteric adenopathy by size criteria. Aorta and inferior vena cava are normal in caliber. Bones: No suspicious bony lesions. No vertebral body compression fractures. Miscellaneous: No ventral hernias. IMPRESSION: 1. Right kidney inferior pole enhancing mass measuring 1.8 cm is unchanged in size. This could represent an indolent renal cell carcinoma or other neoplasm. 2. No adenopathy. 3. Small pancreatic cysts are unchanged. These could represent serous cyst or IPMN. Dictated by: Christiano Adan M.D. on 08/28/2022 at 15:33 Approved by: Christiano Adan M.D. on 08/28/2022 at 15:48
== END ==
PROVIDERS: PCP Student in an Organized Health Care Education/Training Program; Referring Provider Urology; Visit Provider Urology
DX: N28.9 Disorder of kidney and ureter, unspecified (principal); K86.2 Cyst of pancreas
CPT/HCPCS: 74170

== ENCOUNTER → 2022-09-02 14:13 | Outpatient (CLI) | payer OTHER, SELFPAY | PROVIDERS: PCP Student in an Organized Health Care Education/Training Program; Visit Provider Urology | DX: N39.0 Urinary tract infection, site not specified (principal); R31.29 Other microscopic hematuria; N28.9 Disorder of kidney and ureter, unspecified; N95.2 Postmenopausal atrophic vaginitis; Z77.22 Contact with and (suspected) exposure to environmental tobacco smoke (acute) (chronic); Z80.52 Family history of malignant neoplasm of bladder | CPT/HCPCS: 81002; 87086; 99214 ==

== ENCOUNTER 2022-09-07 20:53 | Emergency (ER) | payer OTHER, SELFPAY ==
[2022-09-07 21:16] VITALS: BP 133/76; PULSE 85; RESP 16; TEMP 36.4; O2SAT 95; BMI 24.7
--- NOTE | 2022-09-07 21:21 | DI.RAD.S_ITS ---
PROCEDURE: XR LUMBAR SPINE 2-3V INDICATIONS: fall pain ed waiting room TECHNIQUE: 3 views of the lumbar spine were acquired. COMPARISON: [facility], CT, CT ABDOMEN RENAL PROTOCOL, 08/28/2022, 14:25. FINDINGS: Bones: There are 5 lumbar type vertebral bodies. There are [id number] degenerative changes. Mild endplate deformities are present, likely degenerative. Possible, partially visualized height loss of the T11 vertebral body. Partially seen hip arthrosis. Soft tissues: Prominent bowel gas. Prominent stool. IMPRESSION: Possible height loss of the T11 vertebral body, partially visualized at the edge of the film. [id number] degenerative changes. Dictated by: Aftab Oconnell M.D. on 09/07/2022 at 22:34 Approved by: Aftab Oconnell M.D. on 09/07/2022 at 22:36
--- NOTE | 2022-09-07 21:21 | DI.RAD.S_ITS ---
PROCEDURE: XR RIBS LT MIN 3V W CXR1V INDICATIONS: fall pain ed waiting room TECHNIQUE: 2 views of the left ribs were acquired, along with a single view chest. COMPARISON: None. FINDINGS: Surgical changes and devices: None. Bones and chest wall: No displaced fracture. Lungs and pleura: No pleural effusions or pneumothorax. Lungs appear clear. Mediastinum: Mediastinal contours appear normal. Heart size is normal. IMPRESSION: No displaced fracture. If there is high concern for occult injury, consider repeat radiography or cross-sectional imaging. Dictated by: Aftab Oconnell M.D. on 09/07/2022 at 22:36 Approved by: Aftab Oconnell M.D. on 09/07/2022 at 22:37
== END 2022-09-08 01:25 | disposition left against medical advice (07) ==
PROVIDERS: Emergency Provider Emergency Medicine; PCP Student in an Organized Health Care Education/Training Program
DX: M54.50 Low back pain, unspecified (principal); R07.81 Pleurodynia; W18.30XA Fall on same level, unspecified, initial encounter
CPT/HCPCS: 71101; 72100; 99281

== ENCOUNTER → 2022-09-08 16:00 | Outpatient (CLI) | payer OTHER, SELFPAY ==
[2022-09-08 17:56] LABS: Add Manual Diff / Slide Review NO; Basophils Absolute Auto 100 /uL (0-100); Basophils Percent Auto 0.8 % (0-2); Eosinophils Absolute Auto 100 /uL (0-450); Eosinophils Percent Auto 0.8 % (2-4); Hematocrit 40.7 % (36-46); Hemoglobin 13.8 g/dL (12.0-16.0); Lymphocytes Absolute Auto 900 /uL (1100-4500); Lymphocytes Percent Auto 9.2 % (25-40); Mean Corpuscular Hemoglobin 29.9 PG (26-34); Mean Corpuscular Volume 87.9 fL (80-100); Monocytes Absolute Auto 500 /uL (0-900); Neutrophils Absolute Auto 8200 /uL (1500-7000); Neutrophils Percent Auto 84.2 % (50-75); Platelet Count 243 X10^3/uL (150-400); Red Blood Cell Count 4.63 X10^6/uL (4.0-5.2); Red Cell Distribution Width 14.2 % (11.6-14.8); White Blood Cell Count 9.7 X10^3/uL (4.5-11.0)
[2022-09-08 18:21] LABS: HEMOLYSIS < 15 (0-50); Iron 38 ug/dL (37-170)
[2022-09-08 18:34] LABS: Percent Iron Saturation 12 % (15-50); Total Iron Binding Capacity 306 ug/dL (265-497); Transferrin 241 mg/dL (206-381)
[2022-09-08 18:35] LABS: Alanine Aminotransferase 16 IU/L (<35); Albumin 4.1 g/dL (3.5-5.0); Albumin Globulin Ratio 1.4 (1.0-2.8); Alkaline Phosphatase 83 U/L (38-126); Aspartate Aminotransferase 20 IU/L (14-36); BUN Creatinine Ratio 28.1 (6-22); Bilirubin Total 1.2 mg/dL (0.2-1.3); Blood Urea Nitrogen 16 mg/dL (7-17); Calcium 9.5 mg/dL (8.4-10.2); Carbon Dioxide 24 mmol/L (22-32); Chloride 102 mmol/L (98-107); Estimated Glomerular Filt Rate > 60 mL/min (>60); Globulin 2.9 g/dL (1.7-4.1); Glucose 98 mg/dL (80-110); HEMOLYSIS < 15 (0-50); Potassium 4.3 mmol/L (3.4-5.1); Sodium 136 mmol/L (137-145)
[2022-09-08 18:44] LABS: Free T3, Triiodothyronine Free 3.79 pg/mL (2.77-5.27); Free T4, Direct Thyroxine 1.18 ng/dL (0.78-2.19)
[2022-09-08 18:57] LABS: Thyroid Stimulating Hormone 0.881 uIU/mL (0.47-4.68)
[2022-09-08 19:22] LABS: Vitamin B12 544 pg/mL (239-931)
== END ==
PROVIDERS: PCP Student in an Organized Health Care Education/Training Program; Referring Provider Nurse Practitioner; Visit Provider Nurse Practitioner
DX: R53.83 Other fatigue (principal)
CPT/HCPCS: 36415; 80053; 82607; 83540; 83550; 84439; 84443; 84481; 85025

== ENCOUNTER → 2022-09-16 11:52 | Outpatient (CLI) | payer OTHER, SELFPAY ==
--- NOTE | 2022-09-16 11:55 | DI.RAD.S_ITS ---
PROCEDURE: XR HIP W PEL IF DONE LT 2V INDICATIONS: Hip pain s/p fall TECHNIQUE: 2 views of the hip were acquired. COMPARISON: [facility], CT, CT ABDOMEN PELVIS WO/W CON, 05/05/2022, 14:14. [facility], CT, CT ABDOMEN RENAL PROTOCOL, 08/28/2022, 14:25. FINDINGS: Bones: [id number] bilateral hip arthrosis. No displaced fracture or dislocation. Soft tissues: No suspicious calcifications. IMPRESSION: No acute radiographic abnormality. Bilateral hip arthrosis. If there is high concern for further derangement, consider MRI evaluation. Dictated by: Aftab Oconnell M.D. on 09/16/2022 at 15:03 Approved by: Aftab Oconnell M.D. on 09/16/2022 at 15:04
== END ==
PROVIDERS: PCP Student in an Organized Health Care Education/Training Program; Referring Provider Nurse Practitioner; Visit Provider Nurse Practitioner
DX: M25.552 Pain in left hip (principal); M54.50 Low back pain, unspecified; M16.0 Bilateral primary osteoarthritis of hip
CPT/HCPCS: 73502

== ENCOUNTER 2022-10-02 16:21 | Emergency (ER) | payer OTHER, SELFPAY ==
[2022-10-02] VITALS (17 sets, daily range): BP systolic 129–173; BP diastolic 67–106; PULSE 74–91; RESP 20–25; TEMP 36.7; O2SAT 93–99; BMI 23.8
[2022-10-02 16:56] LABS: Alanine Aminotransferase 17 IU/L (<35); Albumin 3.9 g/dL (3.5-5.0); Albumin Globulin Ratio 1.4 (1.0-2.8); Alkaline Phosphatase 148 U/L (38-126); Aspartate Aminotransferase 20 IU/L (14-36); BUN Creatinine Ratio 15.5 (6-22); Bilirubin Total 0.5 mg/dL (0.2-1.3); Blood Urea Nitrogen 9 mg/dL (7-17); Carbon Dioxide 25 mmol/L (22-32); Chloride 104 mmol/L (98-107); Estimated Glomerular Filt Rate > 60 mL/min (>60); Globulin 2.8 g/dL (1.7-4.1); Glucose 121 mg/dL (80-110); HEMOLYSIS < 15 (0-50); Sodium 137 mmol/L (137-145); Total Protein 6.7 g/dL (6.3-8.2)
[2022-10-02 17:00] LABS: Add Manual Diff / Slide Review NO; Basophils Absolute Auto 100 /uL (0-100); Basophils Percent Auto 0.8 % (0-2); Eosinophils Absolute Auto 100 /uL (0-450); Eosinophils Percent Auto 0.7 % (2-4); Hematocrit 39.1 % (36-46); Hemoglobin 13.1 g/dL (12.0-16.0); Lymphocytes Absolute Auto 1000 /uL (1100-4500); Lymphocytes Percent Auto 10.8 % (25-40); Mean Corpuscular HGB Conc 33.6 % (30-36); Mean Corpuscular Hemoglobin 29.2 PG (26-34); Mean Corpuscular Volume 87.1 fL (80-100); Monocytes Absolute Auto 400 /uL (0-900); Monocytes Percent Auto 4.8 % (3-14); Neutrophils Absolute Auto 7700 /uL (1500-7000); Neutrophils Percent Auto 82.9 % (50-75); Platelet Count 239 X10^3/uL (150-400); Red Blood Cell Count 4.49 X10^6/uL (4.0-5.2); Red Cell Distribution Width 14.8 % (11.6-14.8); White Blood Cell Count 9.3 X10^3/uL (4.5-11.0)
[2022-10-02 18:19] LABS: Lipase 62 U/L (23-300)
--- NOTE | 2022-10-02 19:45 | DI.CT.S_ITS ---
PROCEDURE: CT ABDOMEN PELVIS W CON INDICATIONS: nausea x weeks renal mass TECHNIQUE: After the administration of IV contrast, axial sections were acquired from the lung bases to the pubic symphysis. Coronal and sagittal reformats were performed. For radiation dose reduction, the following was used: automated exposure control, adjustment of mA and/or kV according to patient size. COMPARISON: [facility], CR, XR LUMBAR SPINE 2-3V, 09/07/2022, 21:28. [facility], CT, CT ABDOMEN RENAL PROTOCOL, 08/28/2022, 14:25. [facility], CT, CT ABDOMEN PELVIS W CON, 11/07/2021, 12:23. FINDINGS: Image quality: Excellent. Lung bases: Mild linear atelectasis or scarring redemonstrated within the lung bases. Heart: Heart is normal in size. Chest wall: There is an indeterminate small oval soft tissue mass measuring up to 1.0 cm within the left breast on series 2, image 7. ABDOMEN: Liver: There is an oval hypodense lesion within the right hepatic dome measuring up to 2.1 cm which appears similar in size compared to the prior studies it this demonstrated findings consistent with a hemangioma on the prior CT. Gallbladder: Within normal limits without calcified gallstones. Biliary ducts: No biliary ductal dilatation. Pancreas: Small thin walled cysts are redemonstrated within the body of the pancreas, measuring up to 1.5 cm and 1.0 cm on series 2, image 21. The findings are similar to the prior study and suggestive of side branch IPMNs. The main pancreatic duct is nondistended. Spleen: Normal in size. Adrenal Glands: No adrenal nodules. Kidneys and Ureters: No hydronephrosis. There is an exophytic right renal mass measuring up to 1.8 x 1.1 cm on series 2, image 40, similar in size compared to the prior studies. Stomach and Bowel: Stomach, small bowel loops, and colon are normal in caliber and wall thickness. Peritoneum: No abnormal intraperitoneal fluid. No free air. Ventral Wall: No hernia. Abdominal Nodes: No retroperitoneal or mesenteric adenopathy by size criteria. Vessels: Aorta and inferior vena cava are normal in size. PELVIS: Pelvic Organs: Uterus is surgically absent.. Bladder: Unremarkable. Pelvic Nodes: No enlarged lymph nodes. Miscellaneous: No inguinal hernias are seen. Bones: There is a moderate to severe compression fracture of the T11 vertebral body with up to approximately 70% loss of height, increased from the prior x-ray and new compared to the prior CT. There is slight posterior displacement along the superior endplate of the vertebral body with associated moderate spinal canal narrowing. Visualized osseous structures demonstrate no suspicious focal lesions. IMPRESSION: 1. Moderate to severe compression fracture of the T11 vertebral body with increased loss of height compared to the prior x-ray and new compared to the prior CT. There is associated moderate spinal canal narrowing. 2. Right renal mass appears similar in size compared to the prior studies. The findings are again suspicious for a renal cell carcinoma. 3. 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 Dictated by: Manjeet Kunz M.D. on 10/02/2022 at 20:15 Approved by: Manjeet Kunz M.D. on 10/02/2022 at 20:29
--- NOTE | 2022-10-02 19:45 | ED_ITS ---
HPI - Nausea/Vomiting/Diarrhea General Chief complaint: Nausea/Vomiting/Diarrhea Stated complaint: Nausea/Vomitting Time Seen by Provider: 10/02/22 18:08 Source: patient and EMS Mode of arrival: EMS History of Present Illness HPI Narrative: Patient is a 87-year-old history of renal cell mass, frequent UTIs, presenting today with multiple weeks of nausea and abdominal pain. She is here with her daughter both report that she fell 2-3 weeks ago, since then she has had issues including constant nausea abdominal pain and increased weakness. He is had decreased appetite weight loss. Daughter reports that she was evaluated not the day of the fall but the day after. It appears that there was an x-ray done on September 07 but no actual ER visit apparently she waited for 6 hours and was not seen and left. According to PCP note on September 08 there was report from the care facility where she was found face down on the floor. She apparently tripped they put her back to bed and they checked on her later. She is found to have a T11 compression fracture. Related Data Previous Rx's Medication Instructions Recorded cyanocobalamin (vitamin B-12) 1,000 mcg IM QMONTH Low B12 #1 mL 09/09/18 1,000 mcg/mL injection solution fluticasone propionate 50 1 spray intranasal BID #16 grams 03/25/21 mcg/actuation nasal spray,suspension simethicone 125 mg capsule (Gas 125 mg PO BID-QID PRN abdominal 05/26/21 Relief (simethicone)) distention #30 caps magnesium citrate 150 ml PO BID PRN constipation 11/06/21 #296 mL Saccharomyces boulardii 10 billion 10,000 mmu cells PO BID #14 caps 08/19/22 cell capsule (Resistance Formula Probiotic) estradiol 10 mcg vaginal tablet 10 mcg vaginal 3XW #36 tabs 08/27/22 naproxen sodium 220 mg tablet 220 mg PO BID PRN pain #60 tabs 08/28/22 (Aleve) omeprazole 20 mg capsule,delayed 20 mg PO DAILY #30 caps 08/28/22 release levocetirizine 5 mg tablet 5 mg PO QPM #90 tabs 09/11/22 acetaminophen 500 mg tablet 1,000 mg PO BID #180 tabs 09/16/22 (Tylenol Extra Strength) diclofenac sodium 1 % topical gel 4 g topical BID #100 grams 09/16/22 (Arthritis Pain (diclofenac)) docusate sodium 100 mg capsule 100 mg PO BID #180 caps 09/16/22 fluoxetine 60 mg tablet 60 mg PO QAM #90 tabs 09/16/22 sennosides 8.6 mg capsule (senna) 8.6 mg PO DAILY PRN constipation 09/16/22 #90 caps ciprofloxacin HCl 500 mg tablet 500 mg PO BID #10 tabs 10/02/22 (Cipro) Allergies Allergy/AdvReac Type Severity Reaction Status Date / Time Sulfa (Sulfonamide Allergy Unknown Verified 10/02/22 16:35 Antibiotics) cephalexin AdvReac Intermediate Abdominal Verified 10/02/22 16:35 Pain nitrofurantoin AdvReac Intermediate Vomitting/ Verified 10/02/22 16:35 [From Macrobid] nausea/ all over pain. Review of Systems Review of Systems ROS Unobtainable: All systems reviewed & are unremarkable except as noted in HPI and below Patient History Medical History Acquired absence of other specified parts of digestive tract Allergic rhinitis B12 deficiency Caregiver role strain Chicken pox Colon polyps Constipation Cystocele Depression with anxiety Diverticular disease Family history of diabetes mellitus Family history of malignant neoplasm of bladder Family history of malignant neoplasm of trachea, bronchus and lung Family history of other mental and behavioral disorders History of recurrent ear infection Insomnia senior care current use of inhaled steroid Major depressive disorder, single episode Measles Microscopic hematuria 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 Osteopenia Other migraine, not intractable, without status migrainosus Ovarian cyst 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 Recurrent UTI Renal lesion Seasonal allergic rhinitis (09/25/14) Secondhand smoke exposure Stress incontinence Vaginitis, atrophic Vertigo Surgical History Anesthesia Broken nose Bunion Cataract extraction status of left eye Cataract extraction status of right eye H/O colectomy History of appendectomy History of cataract removal with insertion of prosthetic lens History of partial colectomy (~2009) S/P hysterectomy Status post hysterectomy Family History Brother Age: 83 Cancer Father Cancer Mother Mental health problem Dementia Grandmother Diabetes mellitus Social History marital status: number of children: 2 Smoking Status: Never smoker alcohol intake: current substance use type: does not use Smoking Status: Never smoker alcohol intake frequency: holidays/special occasions only Substance Use Type: does not use Exam Initial Vital Signs Initial Vital Signs: Vital Signs Pulse Rate 83 10/02/22 16:28 Pulse Oximetry 96 10/02/22 16:28 GENERAL: Alert week chronically ill 87-year-old female HEENT: Head atraumatic,EOMI, pupils reactive, face symmetric, moist mucous membranes CARDIOVASCULAR: Regular rate and rhythm without murmurs, rubs or gallops. RESPIRATORY: Breath sounds equal bilaterally, no wheezes rales or rhonchi. ABDOMEN: Soft, nontender. Normoactive bowel sounds all 4 quadrants. No guarding or rebound. EXTREMITIES: Normal range of motion, no clubbing or edema. Neurovascularly intact NEUROLOGICAL: Alert and oriented x4. Able to lift both legs configuration specialist strength equal bilaterally no facial droop no aphasia or dysarthria SKIN: Warm, dry, no laceration, no petechiae, no rashes or lesions. Course Orders Ordered: Discontinued Medications Sodium Chloride (Normal Saline 0.9%) 1,000 mls @ 1,000 mls/hr IV BOLUS ONE Stop: 10/02/22 21:25 Last Infusion: 10/02/22 21:34 Dose: 0 mls/hr Documented By: Admin: 10/02/22 20:31 Dose: 1,000 mls/hr Documented By: SEFERINO Morphine Sulfate (Morphine 2 Mg/Ml Inj) 2 mg IV NOW ONE Stop: 10/03/22 00:44 Last Admin: 10/03/22 01:55 Dose: Not Given Documented By: SHABBIR Ondansetron HCl (Ondansetron 4 Mg Odt) 4 mg SL NOW PRN PRN Reason: Nausea And Vomiting Ondansetron HCl (Ondansetron 4 Mg/2 Ml Inj) 4 mg IV NOW PRN PRN Reason: Nausea And Vomiting Vital Signs Vital signs: Vital Signs - 8 hr 10/02/22 22:00 10/02/22 22:30 10/02/22 23:00 Pulse Rate 77 77 76 Respiratory Rate 22 20 25 H Pulse Oximetry 98 93 96 10/03/22 00:37 Pulse Rate Respiratory Rate Pulse Oximetry 97 MDM - Nausea/Vomiting/Diarrhea Lab Data 10/02/22 16:24 10/02/22 16:24 Labs: Lab Results 10/02/22 10/02/22 10/02/22 Range/Units 16:24 16:24 16:24 WBC 9.3 (4.5-11.0) X10^3/uL RBC 4.49 (4.0-5.2) X10^6/uL Hgb 13.1 (12.0-16.0) g/dL Hct 39.1 (36-46) % MCV 87.1 (80-100) fL MCH 29.2 (26-34) PG MCHC 33.6 (30-36) % RDW 14.8 (11.6-14.8) % Plt Count 239 (150-400) X10^3/uL Neut % (Auto) 82.9 H (50-75) % Lymph % (Auto) 10.8 L (25-40) % [place] % (Auto) 4.8 (3-14) % Eos % (Auto) 0.7 L (2-4) % Baso % (Auto) 0.8 (0-2) % Neut # (Auto) 7700 H (0646-7978) /uL Lymph # (Auto) 1000 L (8924-3487) /uL [place] # (Auto) 400 (0-900) /uL Eos # (Auto) 100 (0-450) /uL Baso # (Auto) 100 (0-100) /uL Sodium 137 (137-145) mmol/L Potassium 4.0 (3.4-5.1) mmol/L Chloride 104 (98-107) mmol/L Carbon Dioxide 25 (22-32) mmol/L BUN 9 (7-17) mg/dL Creatinine 0.58 (0.52-1.04) mg/dL Estimated GFR > 60 (>60) mL/min BUN/Creatinine Ratio 15.5 (6-22) Glucose 121 H (80-110) mg/dL Calcium 9.0 (8.4-10.2) mg/dL Total Bilirubin 0.5 (0.2-1.3) mg/dL AST 20 (14-36) IU/L ALT 17 (<35) IU/L Alkaline Phosphatase 148 H (38-126) U/L Total Protein 6.7 (6.3-8.2) g/dL Albumin 3.9 (3.5-5.0) g/dL Globulin 2.8 (1.7-4.1) g/dL Albumin/Globulin Ratio 1.4 (1.0-2.8) Lipase 62 (23-300) U/L Urine RBC (0-5/HPF) Urine WBC (0-5/HPF) Ur Squamous Epith Cells (0-5/HPF) Urine Bacteria (None) Ur Culture Indicated? 10/02/22 Range/Units 19:25 WBC (4.5-11.0) X10^3/uL RBC (4.0-5.2) X10^6/uL Hgb (12.0-16.0) g/dL Hct (36-46) % MCV (80-100) fL MCH (26-34) PG MCHC (30-36) % RDW (11.6-14.8) % Plt Count (150-400) X10^3/uL Neut % (Auto) (50-75) % Lymph % (Auto) (25-40) % [place] % (Auto) (3-14) % Eos % (Auto) (2-4) % Baso % (Auto) (0-2) % Neut # (Auto) (7191-4269) /uL Lymph # (Auto) (9512-7855) /uL [place] # (Auto) (0-900) /uL Eos # (Auto) (0-450) /uL Baso # (Auto) (0-100) /uL Sodium (137-145) mmol/L Potassium (3.4-5.1) mmol/L Chloride (98-107) mmol/L Carbon Dioxide (22-32) mmol/L BUN (7-17) mg/dL Creatinine (0.52-1.04) mg/dL Estimated GFR (>60) mL/min BUN/Creatinine Ratio (6-22) Glucose (80-110) mg/dL Calcium (8.4-10.2) mg/dL Total Bilirubin (0.2-1.3) mg/dL AST (14-36) IU/L ALT (<35) IU/L Alkaline Phosphatase (38-126) U/L Total Protein (6.3-8.2) g/dL Albumin (3.5-5.0) g/dL Globulin (1.7-4.1) g/dL Albumin/Globulin Ratio (1.0-2.8) Lipase (23-300) U/L Urine RBC None seen (0-5/HPF) Urine WBC 0-1/hpf (0-5/HPF) Ur Squamous Epith Cells 0-1 /hpf (0-5/HPF) Urine Bacteria Few (2-10) H (None) Ur Culture Indicated? Cult not indicated Urine Dip Bedside Urine Glucose Negative Bedside Urine Bilirubin - Negative Bedside Urine Ketone - Negative Urine Specific [place] 1.01 Bedside Urine Occult Blood - Negative Bedside Urine pH 6.5 Bedside Urine Protein - Negative Bedside Urine Urobilinogen - Negative Bedside Urine Nitrite - Negative Bedside Urine Leukocytes - Negative Esterase Imaging Data CT scan - head: Radiologist's Impression: PROCEDURE:? CT HEAD/BRAIN WO CON ? INDICATIONS:? head injury on 09/07 persistent nausea ? TECHNIQUE:? Noncontrast 4.5 mm thick angled axial sections acquired from the foramen magnum to the vertex, with coronal and sagittal reformats.? For radiation dose reduction, the following was used:? automated exposure control, adjustment of mA and/or kV according to patient size.? ? COMPARISON:? [facility], CT, CT HEAD/BRAIN WO CON, 01/21/2018, 13:54. ? FINDINGS:? Image quality:? Excellent.? ? CSF spaces:? Basal cisterns are patent.? No extra-axial fluid collections.? There is moderate cerebral volume loss, with resultant ventricular and sulcal prominence.? ? Brain:? No intracranial hemorrhage, mass, or mass effect.? There are sub cortical, periventricular and deep white matter hypodensities consistent with moderate chronic small vessel ischemic changes.? The villagomez-white matter junction appears preserved.? There is intracranial internal carotid artery atherosclerosis.? ? Skull and face:? Calvarium and visualized facial bones appear intact, without suspicious lesions.? ? Sinuses:? Visualized sinuses and mastoids are clear.? ? IMPRESSION:? ? 1. No acute intracranial abnormality. ? 2. Moderate cerebral volume loss and chronic white matter small vessel ischemic changes. ? ? Dictated by: Manjeet Kunz M.D. on 10/02/2022 at 22:50 ? ? CT scan - abdomen/pelvis: Radiologist's Impression: PROCEDURE:? CT ABDOMEN PELVIS W CON ? INDICATIONS:? nausea x weeks renal mass ? TECHNIQUE:? After the administration of IV contrast, axial sections were acquired from the l ivan bases to the pubic symphysis.? Coronal and sagittal reformats were performed.? For radiation dose reduction, the following was used:? automated exposure control, adjustment of mA and/or kV according to patient size. ? COMPARISON:? [facility], CR, XR LUMBAR SPINE 2-3V, 09/07/2022, 21:28.? [facility], CT, CT ABDOMEN RENAL PROTOCOL, 08/28/2022, 14:25.? [facility], CT, CT ABDOMEN PELVIS W CON, 11/07/2021, 12:23. ? FINDINGS:? Image quality:? Excellent.? ? Lung bases:? Mild linear atelectasis or scarring redemonstrated within the lung bases.? ? ? Heart:? Heart is normal in size. Chest wall:? There is an indeterminate small oval soft tissue mass measuring up to 1.0 cm within the left breast on series 2, image 7. ? ? ABDOMEN: Liver:? There is an oval hypodense lesion within the right hepatic dome measuring up to 2.1 cm which appears similar in size compared to the prior studies it this demonstrated findings consistent with a hemangioma on the prior CT.? Gallbladder:? Within normal limits without calcified gallstones.? ? Biliary ducts:? No biliary ductal dilatation.? ? Pancreas:? Small thin walled cysts are redemonstrated within the body of the pancreas, measuring up to 1.5 cm and 1.0 cm on series 2, image 21.? The findings are similar to the prior study and suggestive of side branch IPMNs.? The main pancreatic duct is nondistended. Spleen:? Normal in size.? ? Adrenal Glands:? No adrenal nodules.? ? Kidneys and Ureters:? No hydronephrosis.? There is an exophytic right renal mass measuring up to 1.8 x 1.1 cm on series 2, image 40, similar in size compared to the prior studies. ? Stomach and Bowel:? Stomach, small bowel loops, and colon are normal in caliber and wall thickness.? Peritoneum:? No abnormal intraperitoneal fluid.? No free air.? ? Ventral Wall: ? No hernia.? Abdominal Nodes:? No retroperitoneal or mesenteric adenopathy by size criteria.? Vessels:? Aorta and inferior vena cava are normal in size.? ? PELVIS: Pelvic Organs:? Uterus is surgically absent..? ? Bladder:? Unremarkable.? ? Pelvic Nodes: No enlarged lymph nodes.? Miscellaneous: No inguinal hernias are seen. ? ? ? Bones:? There is a moderate to severe compression fracture of the T11 vertebral body with up to approximately 70% loss of height, increased from the prior x-ray and new compared to the prior CT.? There is slight posterior displacement along the superior endplate of the vertebral body with associated moderate spinal canal narrowing.? Visualized osseous structures demonstrate no suspicious focal lesions. ? IMPRESSION:? ? 1. Moderate to severe compression fracture of the T11 vertebral body with increased loss of height compared to the prior x-ray and new compared to the prior CT.? There is associated moderate spinal canal narrowing. ? 2. Right renal mass appears similar in size compared to the prior studies.? The findings are again suspicious for a renal cell carcinoma. ? 3. 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 ? ? Dictated by: Manjeet Kunz M.D. on 10/02/2022 at 20:15 ? ? MDM Narrative Medical decision making narrative: Patient 87-year-old female history frequent UTIs chronic ongoing problems. She did fall in August since then it seems like her symptoms have gotten worse she is had chronic nausea. Head CT today does not show any intracranial hemorrhage. Her nausea may be from medication she does have a history of being sensitive to medicine. She has had ongoing abdominal pain off and on for a couple of weeks abdominal CT does not show any change no evidence of obstruction. Blood work does not show any significant leukocytosis electrolyte abnormality or SHAYE. Urinalysis does show a few bacteria but no leukocytes or nitrates. Patient has been in the emergency department for numerous hours. At this time patient is having chronic issues no real acute issue or reason to admit. Although she apparently has been weaker today and not able to walk although yesterday she was able to walk. She seems he moving her legs on the bed just fine. An ambulation trial was done with our walker and she was able to walk out into the hallway and back to bed. This supports decision to be discharged home. Unfortunately after multiple hours patient has started to have sundowning like symptoms and becoming more agitated and more confused. She is adamantly refusing to get back out of bed and walk or help get herself into a wheelchair. Discussed case with hospitalist Paul who has reviewed chart and states that patient does not meet criteria for admission. Have explained over and over to both patient and daughter that she does not meet criteria she is able to ambulate at this time needs to return to [facility]. If things change then she may come back. She may have a minor bladder infection not sure if this is causing some irritation but it certainly isn't causing any sign of severe sepsis or requiring hospitalization. This can easily be treated as an outpatient. She is given Cipro because according to no says what she is tolerated previously. Discharge Plan Departure Patient Disposition: Home Clinical Impression: Acute UTI Instructions: DI for Urinary Tract Infection (UTI) Activity Restrictions/Additional Instructions: *You have been diagnosed with UTI, weakness chronic nausea *What to do: At this time you do have a bladder infection. Will put you on an antibiotic that you have had previously and tolerated well. Not sure what is making you so nauseous all of the time please follow-up with your primary care provider *Continue to take medications as directed Cipro 500 mg twice a day for 5 days *Follow up with your primary care provider in 2-3 days or call [phone] *Return to ER if you should have increasing nausea vomiting weakness falling or any new, worsening or concerning symptoms Prescriptions: New ciprofloxacin HCl [Cipro] 500 mg tablet 500 mg PO BID Qty: 10 0RF No Action cyanocobalamin (vitamin B-12) 1,000 mcg/mL solution 1,000 mcg IM QMONTH Qty: 1 0RF estradiol 10 mcg tablet 10 mcg vaginal 3XW Qty: 36 3RF Rx Instructions: Insert vaginally M-W-F at bedtime naproxen sodium [Aleve] 220 mg tablet 220 mg PO BID PRN (Reason: pain) Qty: 60 12RF omeprazole 20 mg capsule,delayed release(DR/EC) 20 mg PO DAILY Qty: 30 12RF Rx Instructions: Take 1 capsule each morning levocetirizine 5 mg tablet 5 mg PO QPM Qty: 90 1RF Rx Instructions: Take 1 tab daily for allergies simethicone [Gas Relief (simethicone)] 125 mg capsule 125 mg PO BID-QID PRN (Reason: abdominal distention) Qty: 30 2RF Rx Instructions: Take 1 capsule 2-4 times per day for bloating/gas symptom fluticasone propionate 50 mcg/actuation spray,suspension 1 spray Intranasal BID Qty: 16 12RF Rx Instructions: 1 spray each nostril up to 2x/day magnesium citrate Solution 150 ml PO BID PRN (Reason: constipation) Qty: 296 0RF Rx Instructions: Take 1/2 bottle tonight and 1/2 bottle tomorrow morning for bowel obstruction Resistance Formula Probiotic 10 billion cell capsule 10,000 mmu cells PO BID Qty: 14 0RF docusate sodium 100 mg capsule 100 mg PO BID Qty: 180 3RF Rx Instructions: Take 1 capsule twice per day as needed for constipation, HOLD for diarrhea x24 hours and CALL senna 8.6 mg capsule 8.6 mg PO DAILY PRN (Reason: constipation) Qty: 90 3RF Rx Instructions: Take 1 tab daily as needed for constipation fluoxetine 60 mg tablet 60 mg PO QAM Qty: 90 3RF diclofenac sodium [Arthritis Pain (diclofenac)] 1 % gel 4 g topical BID Qty: 100 3RF Rx Instructions: Apply to painful area of back twice daily for pain acetaminophen [Tylenol Extra Strength] 500 mg tablet 1,000 mg PO BID Qty: 180 3RF Referrals: Drew Mancera MD [Primary Care Provider] - Stand Alone Forms: Patient Portal/API
[2022-10-02 20:07] LABS: Bacteria Urine Few (2-10); Culture Indicated Urine Cult Not Indicated; RBC Urine None Seen (0-5/HPF); Squamous Epithelial Cell Urine 0-1 /HPF (0-5/HPF); WBC Urine 0-1/HPF (0-5/HPF)
[2022-10-02] MEDS: SODIUM CHLORIDE 0.9% 1,000 ML 1000 ML IV (20:31)
--- NOTE | 2022-10-02 20:39 | DI.CT.S_ITS ---
PROCEDURE: CT HEAD/BRAIN WO CON INDICATIONS: head injury on 09/07 persistent nausea TECHNIQUE: Noncontrast 4.5 mm thick angled axial sections acquired from the foramen magnum to the vertex, with coronal and sagittal reformats. For radiation dose reduction, the following was used: automated exposure control, adjustment of mA and/or kV according to patient size. COMPARISON: [facility], CT, CT HEAD/BRAIN WO CON, 01/21/2018, 13:54. FINDINGS: Image quality: Excellent. CSF spaces: Basal cisterns are patent. No extra-axial fluid collections. There is moderate cerebral volume loss, with resultant ventricular and sulcal prominence. Brain: No intracranial hemorrhage, mass, or mass effect. There are subcortical, periventricular and deep white matter hypodensities consistent with moderate chronic small vessel ischemic changes. The villagomez-white matter junction appears preserved. There is intracranial internal carotid artery atherosclerosis. Skull and face: Calvarium and visualized facial bones appear intact, without suspicious lesions. Sinuses: Visualized sinuses and mastoids are clear. IMPRESSION: 1. No acute intracranial abnormality. 2. Moderate cerebral volume loss and chronic white matter small vessel ischemic changes. Dictated by: Manjeet Kunz M.D. on 10/02/2022 at 22:50 Approved by: Manjeet Kunz M.D. on 10/02/2022 at 22:51
[2022-10-03 00:37] VITALS: O2SAT 97
--- NOTE | 2022-10-03 01:25 | PC.NURSE ---
Multiple nurses into discharge patient. Patient refusing to go stating she can't walk even though earlier patient ambulated with walker and medical office coordinator. Daughter reported patient not actting herself. Offered dose of morphine and patient refused stating I don't trust anything you give me Pt stated she needed to go to the bathroom and brought in fww walker and patient refused to use walker because it's not like mine with 4 wheels and this one isn't safe for me to use Pt wouldn't listen to the instructions of use of walker. Provider in room multiple times explaining to patient, she didn't meet criteria to be admitted into the hospital. FACING GRINDER in room to assist with commode, pt stood to commode with no assistance from medical office coordinator. FACING GRINDER finaly able to convince daughter to take patient home to [facility] assisted living.
== END 2022-10-03 01:41 | disposition home or self-care (01) ==
PROVIDERS: Emergency Medicine; Emergency Provider Emergency Medicine; PCP Student in an Organized Health Care Education/Training Program
DX: N39.0 Urinary tract infection, site not specified (principal); S09.90XS Unspecified injury of head, sequela; R11.2 Nausea with vomiting, unspecified; Z79.899 Other long term (current) drug therapy
CPT/HCPCS: 36415; 70450; 74177; 80053; 81003; 81015; 83690; 85025; 96360; 99284; Q9967

== ENCOUNTER → 2022-12-10 16:35 | Outpatient (ROUT) | payer MEDICARE, OTHER, SELFPAY ==
[2022-12-10 17:24] LABS: Appearance Urine UA SL CLOUDY; Bilirubin Urine UA NEGATIVE (NEGATIVE); Color Urine UA YELLOW; Glucose Urine UA NEGATIVE (Negative); Ketones Urine UA NEGATIVE (NEGATIVE); Leukocyte Esterase Urine UA 1+ (NEGATIVE); Nitrite Urine UA NEGATIVE (Negative); Occult Blood Urine UA TRACE-INTACT (Negative); Protein Urine UA NEGATIVE (Negative); Specific Gravity Urine UA >=1.030 (1.000-1.035); Urobilinogen Urine UA 0.2 E.U./dL (0.2)
[2022-12-10 17:26] LABS: pH Urine UA 5.5 (4.5-8.0)
[2022-12-10 17:36] LABS: Bacteria Urine Few (2-10); Calcium Oxalate Crystals Urine Moderate; RBC Urine 0-1/HPF (0-5/HPF); Squamous Epithelial Cell Urine 5-10 /HPF (0-5/HPF); WBC Urine 5-10/HPF (0-5/HPF)
[2022-12-10 17:37] LABS: Amorphous Sediment Urine 1+; Culture Indicated Urine Specimen Cultured; Mucus Urine 1+ (Negative)
== END ==
PROVIDERS: PCP Student in an Organized Health Care Education/Training Program; Visit Provider Nurse Practitioner Family
DX: R35.0 Frequency of micturition (principal)
CPT/HCPCS: 81001; 87086

== ENCOUNTER → 2022-12-22 18:06 | Outpatient (ROUT) | payer OTHER, SELFPAY ==
[2022-12-22 18:18] LABS: Appearance Urine UA SL CLOUDY; Bilirubin Urine UA NEGATIVE (NEGATIVE); Color Urine UA YELLOW; Glucose Urine UA NEGATIVE (Negative); Ketones Urine UA NEGATIVE (NEGATIVE); Leukocyte Esterase Urine UA 1+ (NEGATIVE); Nitrite Urine UA NEGATIVE (Negative); Occult Blood Urine UA NEGATIVE (Negative); Protein Urine UA NEGATIVE (Negative); Specific Gravity Urine UA 1.025 (1.000-1.035); Urobilinogen Urine UA 0.2 E.U./dL (0.2)
[2022-12-22 18:33] LABS: pH Urine UA 5.5 (4.5-8.0)
[2022-12-22 18:44] LABS: Bacteria Urine Few (2-10); RBC Urine 0-1/HPF (0-5/HPF); Squamous Epithelial Cell Urine 5-10 /HPF (0-5/HPF); Transitional Epi Cells Urine 1-5/HPF (0-5/HPF); WBC Urine 10-30/HPF (0-5/HPF)
[2022-12-22 18:45] LABS: Calcium Oxalate Crystals Urine Few; Culture Indicated Urine Specimen Cultured; Mucus Urine 1+ (Negative)
== END ==
PROVIDERS: PCP Student in an Organized Health Care Education/Training Program; Visit Provider Nurse Practitioner Family
DX: R35.0 Frequency of micturition (principal)
CPT/HCPCS: 81001; 87086

== ENCOUNTER → 2022-12-31 18:12 | Outpatient (ROUT) | payer OTHER, SELFPAY ==
[2022-12-31 18:30] LABS: Appearance Urine UA CLEAR; Bilirubin Urine UA NEGATIVE (NEGATIVE); Color Urine UA YELLOW; Glucose Urine UA NEGATIVE (Negative); Ketones Urine UA NEGATIVE (NEGATIVE); Leukocyte Esterase Urine UA 1+ (NEGATIVE); Nitrite Urine UA NEGATIVE (Negative); Occult Blood Urine UA NEGATIVE (Negative); Protein Urine UA NEGATIVE (Negative); Specific Gravity Urine UA 1.015 (1.000-1.035); Urobilinogen Urine UA 0.2 E.U./dL (0.2)
[2022-12-31 18:57] LABS: RBC Urine 0-1/HPF (0-5/HPF); WBC Urine 10-30/HPF (0-5/HPF)
[2022-12-31 18:58] LABS: Bacteria Urine Moderate (10-30); Culture Indicated Urine Specimen Cultured; Squamous Epithelial Cell Urine 10-30 /HPF (0-5/HPF); Uric Acid Crystals Urine Moderate
== END ==
PROVIDERS: PCP Student in an Organized Health Care Education/Training Program; Visit Provider Nurse Practitioner Family
DX: K59.00 Constipation, unspecified (principal); M54.50 Low back pain, unspecified
CPT/HCPCS: 81001; 87077; 87086; 87186

== ENCOUNTER → 2023-01-20 17:26 | Outpatient (ROUT) | payer OTHER, SELFPAY ==
[2023-01-20 17:38] LABS: Appearance Urine UA CLEAR; Bilirubin Urine UA NEGATIVE (NEGATIVE); Color Urine UA YELLOW; Glucose Urine UA NEGATIVE (Negative); Ketones Urine UA NEGATIVE (NEGATIVE); Leukocyte Esterase Urine UA 1+ (NEGATIVE); Nitrite Urine UA POSITIVE (Negative); Occult Blood Urine UA NEGATIVE (Negative); Protein Urine UA NEGATIVE (Negative); Urobilinogen Urine UA 0.2 E.U./dL (0.2)
[2023-01-20 17:47] LABS: Bacteria Urine Few (2-10); Culture Indicated Urine Specimen Cultured; RBC Urine None Seen (0-5/HPF); Squamous Epithelial Cell Urine 1-5 /HPF (0-5/HPF); WBC Urine 5-10/HPF (0-5/HPF)
== END ==
PROVIDERS: PCP Student in an Organized Health Care Education/Training Program; Visit Provider Nurse Practitioner Family
DX: R35.0 Frequency of micturition (principal)
CPT/HCPCS: 81001; 87077; 87086; 87186

== ENCOUNTER → 2023-02-26 13:51 | Outpatient (CLI) | payer OTHER, SELFPAY ==
--- NOTE | 2023-02-26 13:53 | DI.CT.S_ITS ---
PROCEDURE: CT ABDOMEN RENAL PROTOCOL INDICATIONS: Follow-up right lower pole renal lesion TECHNIQUE: Optional 5 mm thick noncontrast images acquired from the diaphragm to the iliac crests. After the administration of intravenous contrast, 5 mm thick images again acquired from the diaphragm to the iliac crests in the arterial and urographic phases. 5 mm thick coronal and sagittal reformats were then acquired. For radiation dose reduction, the following was used: automated exposure control, adjustment of mA and/or kV according to patient size. COMPARISON: Located [facility], CT, CT ABDOMEN PELVIS W CON, 10/02/2022, 19:50. Located Within [facility], CT, CT ABDOMEN RENAL PROTOCOL, 08/28/2022, 14:25. FINDINGS: Image quality: Excellent. Lung bases: Lung bases demonstrate no suspicious pulmonary nodules. Bilateral lower lobe linear atelectasis. No basilar effusion. Heart base demonstrates a trace pericardial effusion, likely physiologic. Heart size is normal. Genitourinary: Compared to CT dated August 28 2022, right lower pole lesion is stable in size measuring 1.8 x 1.3 cm (), previously 1.8 x 1.2 cm with Hounsfield unit of 50 on noncontrast and 90 on arterial phase. No septations, calcifications or nodularity. No new solid renal lesion. Other solid organs: Liver is normal in size and enhancement. Stable hemangioma in the right hepatic dome (10/01). Gallbladder unremarkable. Biliary system is non dilated. Pancreas enhances normally. Stable pancreatic cysts measuring 0.9 cm and 0.6 cm since at least 2018 (08/10). Spleen is normal in size and enhancement. No adrenal nodules. Peritoneum and bowel: Visualized small and large bowel is normal in caliber, without obstruction. Partially visualized diverticulosis, without diverticulitis. No free fluid. No pneumatosis, pneumoperitoneum or portal venous gas. Nodes and vessels: No retroperitoneal or mesenteric adenopathy by size criteria within the field of view. Aorta and inferior vena cava are normal in caliber. Bones: Stable compression fracture at T11 with approximately with 80% height loss and mild osseous retropulsion compared to CT dated October 02, 2022. No aggressive appearing lytic or blastic osseous lesions. Mild multilevel degenerative changes of the spine. Miscellaneous: No ventral hernias. IMPRESSION: 1. Compared to CT dated August 28, 2022, right lower pole lesion is stable measuring 1.8 x 1.3 cm with enhancement. No septations, calcifications are nodularity. Differential includes an indolent renal cell carcinoma or other neoplasm. 2. No adenopathy. 3. Stable compression fracture at T11 with approximately with 80% height loss and mild osseous retropulsion compared to CT dated October 02, 2022. 4. Stable subcentimeter pancreatic cysts since 2019, likely benign IPMN versus serous cysts. Dictated by: Sobeida Mackenzie M.D. on 02/26/2023 at 17:21 Approved by: Sobeida Mackenzie M.D. on 02/26/2023 at 18:04
[2023-02-26 14:25] LABS: Estimated Glomerular Filt Rate > 60 mL/min (>60)
== END ==
PROVIDERS: Radiology Diagnostic Radiology; PCP Student in an Organized Health Care Education/Training Program; Referring Provider Urology; Visit Provider Urology
DX: N28.9 Disorder of kidney and ureter, unspecified (principal); M48.54XA Collapsed vertebra, not elsewhere classified, thoracic region, initial encounter for fracture; K86.2 Cyst of pancreas
CPT/HCPCS: 36415; 74170; 82565; Q9967

== ENCOUNTER → 2023-03-04 15:01 | Outpatient (CLI) | payer OTHER, SELFPAY ==
[2023-03-04 18:08] LABS: Appearance Urine UA SL CLOUDY; Bilirubin Urine UA NEGATIVE (NEGATIVE); Color Urine UA YELLOW; Glucose Urine UA NEGATIVE (Negative); Ketones Urine UA NEGATIVE (NEGATIVE); Leukocyte Esterase Urine UA 1+ (NEGATIVE); Nitrite Urine UA NEGATIVE (Negative); Occult Blood Urine UA TRACE-INTACT (Negative); Protein Urine UA NEGATIVE (Negative); Specific Gravity Urine UA 1.025 (1.000-1.035); Urobilinogen Urine UA 0.2 E.U./dL (0.2)
[2023-03-04 18:15] LABS: Bacteria Urine Moderate (10-30); Calcium Oxalate Crystals Urine Few; Culture Indicated Urine Specimen Cultured; RBC Urine 0-1/HPF (0-5/HPF); Squamous Epithelial Cell Urine 10-30 /HPF (0-5/HPF); Transitional Epi Cells Urine 5-10/HPF (0-5/HPF); WBC Urine 10-30/HPF (0-5/HPF)
== END ==
PROVIDERS: PCP Student in an Organized Health Care Education/Training Program; Visit Provider Urology
DX: N39.0 Urinary tract infection, site not specified (principal); N28.9 Disorder of kidney and ureter, unspecified; R35.0 Frequency of micturition; R30.0 Dysuria; N95.2 Postmenopausal atrophic vaginitis
CPT/HCPCS: 81001; 87086; 99214

== ENCOUNTER → 2023-03-16 12:47 | Outpatient (ROUT) | payer OTHER, SELFPAY ==
[2023-03-16 12:58] LABS: Appearance Urine UA CLEAR; Bilirubin Urine UA NEGATIVE (NEGATIVE); Color Urine UA YELLOW; Glucose Urine UA NEGATIVE (Negative); Ketones Urine UA NEGATIVE (NEGATIVE); Leukocyte Esterase Urine UA 1+ (NEGATIVE); Nitrite Urine UA NEGATIVE (Negative); Occult Blood Urine UA NEGATIVE (Negative); Protein Urine UA NEGATIVE (Negative); Specific Gravity Urine UA 1.025 (1.000-1.035); Urobilinogen Urine UA 0.2 E.U./dL (0.2)
[2023-03-16 13:06] LABS: Bacteria Urine Moderate (10-30); Culture Indicated Urine Specimen Cultured; RBC Urine 0-1/HPF (0-5/HPF); Squamous Epithelial Cell Urine 5-10 /HPF (0-5/HPF); WBC Urine 5-10/HPF (0-5/HPF)
== END ==
PROVIDERS: PCP Student in an Organized Health Care Education/Training Program; Visit Provider Nurse Practitioner Family
DX: N39.0 Urinary tract infection, site not specified (principal)
CPT/HCPCS: 81001; 87086

== ENCOUNTER → 2023-04-30 17:32 | Outpatient (ROUT) | payer OTHER, SELFPAY | PROVIDERS: PCP Student in an Organized Health Care Education/Training Program; Visit Provider Nurse Practitioner Family | DX: N39.0 Urinary tract infection, site not specified (principal) | CPT/HCPCS: 87086 ==

== ENCOUNTER → 2023-06-30 07:07 | Outpatient (ROUT) | payer OTHER, SELFPAY ==
[2023-06-30 08:17] LABS: Add Manual Diff / Slide Review NO; Basophils Absolute Auto 100 /uL (0-100); Basophils Percent Auto 0.9 % (0-2); Eosinophils Absolute Auto 200 /uL (0-450); Eosinophils Percent Auto 2.7 % (2-4); Hemoglobin 11.5 g/dL (12.0-16.0); Lymphocytes Absolute Auto 1700 /uL (1100-4500); Lymphocytes Percent Auto 24.2 % (25-40); Mean Corpuscular HGB Conc 33.8 % (30-36); Mean Corpuscular Hemoglobin 31.2 PG (26-34); Mean Corpuscular Volume 92.2 fL (80-100); Monocytes Absolute Auto 500 /uL (0-900); Monocytes Percent Auto 6.9 % (3-14); Neutrophils Absolute Auto 4700 /uL (1500-7000); Neutrophils Percent Auto 65.3 % (50-75); Platelet Count 206 X10^3/uL (150-400); Red Blood Cell Count 3.69 X10^6/uL (4.0-5.2); Red Cell Distribution Width 14.6 % (11.6-14.8); White Blood Cell Count 7.2 X10^3/uL (4.5-11.0)
[2023-06-30 08:37] LABS: Alanine Aminotransferase 14 IU/L (<35); Albumin 3.6 g/dL (3.5-5.0); Albumin Globulin Ratio 1.2 (1.0-2.8); Alkaline Phosphatase 87 U/L (38-126); Aspartate Aminotransferase 23 IU/L (14-36); BUN Creatinine Ratio 28.6 (6-22); Bilirubin Total 0.6 mg/dL (0.2-1.3); Blood Urea Nitrogen 18 mg/dL (7-17); Carbon Dioxide 25 mmol/L (22-32); Chloride 108 mmol/L (98-107); Estimated Glomerular Filt Rate > 60 mL/min (>60); Globulin 2.9 g/dL (1.7-4.1); Glucose 81 mg/dL (80-110); HEMOLYSIS < 15 (0-50); Potassium 3.9 mmol/L (3.4-5.1); Sodium 139 mmol/L (137-145); Total Protein 6.5 g/dL (6.3-8.2)
[2023-06-30 09:23] LABS: Vitamin B12 357 pg/mL (239-931)
== END ==
PROVIDERS: PCP Student in an Organized Health Care Education/Training Program; Visit Provider Nurse Practitioner Family
DX: D64.9 Anemia, unspecified (principal)
CPT/HCPCS: 36415; 80053; 82607; 85025

== ENCOUNTER 2023-06-30 08:05 | Emergency (ER) | payer OTHER, SELFPAY ==
[2023-06-30 08:16] VITALS: BP 136/69; PULSE 86; RESP 18; TEMP 36.7; O2SAT 96; BMI 23.8
--- NOTE | 2023-06-30 08:30 | ED.FALL ---
HPI - Fall General Chief Complaint: Fall Stated Complaint: fall T-1/ L/Leg LAC Time Seen by Provider: 06/30/23 08:08 Source: patient Mode of arrival: Ambulatory History of Present Illness HPI Narrative: 88yoF presens for evaluation of LLE wound. Patient was using her walker last night when she tripped over an unknown object. She landed on her L knee but cut herself on something sharp in the process. Denies other injury. Unknown last tetanus vaccination. Denies use of blood thinners. Related Data Previous Rx's Medication Instructions Recorded fluticasone propionate 50 1 spray intranasal BID #16 grams 03/25/21 mcg/actuation nasal spray,suspension simethicone 125 mg capsule (Gas 125 mg PO BID-QID PRN abdominal 05/26/21 Relief (simethicone)) distention #30 caps estradiol 10 mcg vaginal tablet 10 mcg vaginal 3XW #36 tabs 08/27/22 naproxen sodium 220 mg tablet 220 mg PO BID PRN pain #60 tabs 08/28/22 (Aleve) omeprazole 20 mg capsule,delayed 20 mg PO DAILY #30 caps 08/28/22 release levocetirizine 5 mg tablet 5 mg PO QPM #90 tabs 09/11/22 acetaminophen 500 mg tablet 1,000 mg (2 x 500 mg) PO BID #180 09/16/22 (Tylenol Extra Strength) tabs docusate sodium 100 mg capsule 100 mg PO BID #180 caps 09/16/22 fluoxetine 60 mg tablet 60 mg PO QAM #90 tabs 09/16/22 sennosides 8.6 mg capsule (senna) 8.6 mg PO DAILY PRN constipation 09/16/22 #90 caps ondansetron HCl 4 mg tablet 4 mg PO Q8H PRN nausea and 10/03/22 vomiting #30 tabs bacitracin 500 unit/gram topical 1 applic topical TID #28 grams 06/30/23 ointment Allergies Allergy/AdvReac Type Severity Reaction Status Date / Time Sulfa (Sulfonamide Allergy Unknown Verified 03/04/23 14:07 Antibiotics) cephalexin AdvReac Intermediate Abdominal Verified 03/04/23 14:07 Pain nitrofurantoin AdvReac Intermediate Vomitting/ Verified 03/04/23 14:07 [From Macrobid] nausea/ all over pain. 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 Other migraine, not intractable, without status migrainosus Major depressive disorder, single episode Personal history of other malignant neoplasm of large intestine Family history of other mental and behavioral disorders Family history of malignant neoplasm of trachea, bronchus and lung Allergic rhinitis Osteoarthritis of left knee Osteopenia Measles Chicken pox Vertigo History of recurrent ear infection Ovarian cyst Diverticular disease Colon polyps Osteoarthritis of wrist Seasonal allergic rhinitis (09/25/14) Surgical History H/O colectomy History of appendectomy Cataract extraction status of right eye Cataract extraction status of left eye S/P hysterectomy Anesthesia Bunion Broken nose History of partial colectomy (~2009) History of cataract removal with insertion of prosthetic lens Status post hysterectomy Family History Brother Age: 84 Cancer Father Cancer Mother Mental health problem Dementia Grandmother Diabetes mellitus Social History marital status: number of children: 2 Smoking Status: Never smoker alcohol intake: current substance use type: does not use Smoking Status: Never smoker alcohol intake frequency: holidays/special occasions only Substance Use Type: does not use Exam Initial Vital Signs Initial Vital Signs: Vital Signs Temperature 98.1 F 06/30/23 08:16 Pulse Rate 86 06/30/23 08:16 Respiratory Rate 18 06/30/23 08:16 Blood Pressure 136/69 06/30/23 08:16 Pulse Oximetry 96 06/30/23 08:16 Oxygen Delivery Method Room Air 06/30/23 08:16 Const General: cooperative, healthy appearing, comfortable, well developed, well groomed and acute distress Skin Other: triangular skin avulsion tear approximately [id number]. 2x3cm central area of deeper skin removal. No active bleeding Neuro General: patient alert, patient awake, patient oriented x3 and gait normal (with walker) Course Orders Ordered: Discontinued Medications Diphtheria/Tetanus/Acell Pertussis (Tet,Diph,Pertuss(Acell),Vac/Pf 0.5 Ml Syringe) 0.5 ml IM .ONCE ONE Stop: 06/30/23 08:26 Last Admin: 06/30/23 08:56 Dose: 0.5 ml Documented By: STACEY Sodium Chloride (Sodium Chloride Irrig Solution 1,000 Ml) 1,000 ml IRR NOW ONE Stop: 06/30/23 08:34 Last Admin: 06/30/23 08:59 Dose: Not Given Documented By: RB Sodium Chloride (Sodium Chloride Irrig Solution 500 Ml Irrig.Soln) 500 ml IRR NOW ONE Stop: 06/30/23 08:59 Last Admin: 06/30/23 08:59 Dose: 500 ml Documented By: RB Vital Signs Vital signs: Vital Signs - 8 hr 06/30/23 08:16 06/30/23 09:12 Temperature 98.1 F 98.2 F Pulse Rate 86 87 Respiratory Rate 18 16 Blood Pressure 136/69 137/62 Pulse Oximetry 96 98 Oxygen Delivery Method Room Air Room Air MDM - Fall MDM Narrative Medical decision making narrative: ground level mechanical trip and fall with accidental leg injury. Unfortunately due to the dimensions and scale of the injury there is no suturable lesion. Patient is in no acute distress, she states that when her leg is not being poked she has no pain. Tetanus updated, wound irrigated and cleaned with dry dressing applied. Antibiotic ointment sent to pharmacy of choice. Wound care instructions discussed with patient and nursing aid at bedside. Discharge Plan Departure Patient Disposition: Home Clinical Impression: Leg wound, left Qualifiers: Encounter type: initial encounter Qualified Code(s): S81.802A - Unspecified open wound, left lower leg, initial encounter Instructions: Skin Wound Activity Restrictions/Additional Instructions: KEEP CLEAN AND DRY. CHANGE DRESSINGS 1-2 TIMES DAILY WITH FRESH BANDAGES. YOU MAY APPLY ANTIBIOTIC OINTMENT TO THE WOUND FOR INFECTION CONTROL. COME BACK IF YOU NOTICE REDNESS, SWELLING, OR DRAINAGE FROM THE WOUND Prescriptions: New bacitracin 500 unit/gram ointment 1 applic topical TID Qty: 28 0RF No Action estradiol 10 mcg tablet 10 mcg vaginal 3XW Qty: 36 3RF Rx Instructions: Insert vaginally M-W- at bedtime naproxen sodium [Aleve] 220 mg tablet 220 mg PO BID PRN (Reason: pain) Qty: 60 12RF omeprazole 20 mg capsule,delayed release(DR/EC) 20 mg PO DAILY Qty: 30 12RF Rx Instructions: Take 1 capsule each morning levocetirizine 5 mg tablet 5 mg PO QPM Qty: 90 1RF Rx Instructions: Take 1 tab daily for allergies ondansetron HCl 4 mg tablet 4 mg PO Q8H PRN (Reason: nausea and vomiting) Qty: 30 1RF simethicone [Gas Relief (simethicone)] 125 mg capsule 125 mg PO BID-QID PRN (Reason: abdominal distention) Qty: 30 2RF Rx Instructions: Take 1 capsule 2-4 times per day for bloating/gas symptom fluticasone propionate 50 mcg/actuation spray,suspension 1 spray Intranasal BID Qty: 16 12RF Rx Instructions: 1 spray each nostril up to 2x/day docusate sodium 100 mg capsule 100 mg PO BID Qty: 180 3RF Rx Instructions: Take 1 capsule twice per day as needed for constipation, HOLD for diarrhea x24 hours and CALL senna 8.6 mg capsule 8.6 mg PO DAILY PRN (Reason: constipation) Qty: 90 3RF Rx Instructions: Take 1 tab daily as needed for constipation fluoxetine 60 mg tablet 60 mg PO QAM Qty: 90 3RF acetaminophen [Tylenol Extra Strength] 500 mg tablet 1,000 mg PO BID Qty: 180 3RF Referrals: Annabel Mas MD [Primary Care Provider] - Stand Alone Forms: Patient Portal/API
[2023-06-30] MEDS: TET,DIPH,PERTUSS(ACELL),VAC/PF 0.5 ML SYRINGE IM (08:56)
[2023-06-30] MEDS: SODIUM CHLORIDE IRR (08:59)
[2023-06-30 09:12] VITALS: BP 137/62; PULSE 87; RESP 16; TEMP 36.8; O2SAT 98
== END 2023-06-30 09:13 | disposition home or self-care (01) ==
PROVIDERS: Emergency Provider Emergency Medicine; PCP Internal Medicine
DX: S81.802A Unspecified open wound, left lower leg, initial encounter (principal); W01.0XXA Fall on same level from slipping, tripping and stumbling without subsequent striking against object, initial encounter; Z23 Encounter for immunization; D64.9 Anemia, unspecified
CPT/HCPCS: 36415; 80053; 82607; 85025; 90471; 99283; 90715

== ENCOUNTER → 2023-07-01 13:00 | Outpatient (ROUT) | payer OTHER, SELFPAY ==
[2023-07-01 13:13] LABS: Appearance Urine UA CLEAR; Bilirubin Urine UA NEGATIVE (NEGATIVE); Color Urine UA YELLOW; Glucose Urine UA NEGATIVE (Negative); Ketones Urine UA NEGATIVE (NEGATIVE); Leukocyte Esterase Urine UA NEGATIVE (NEGATIVE); Nitrite Urine UA NEGATIVE (Negative); Occult Blood Urine UA TRACE-INTACT (Negative); Protein Urine UA NEGATIVE (Negative); Urobilinogen Urine UA 0.2 E.U./dL (0.2)
[2023-07-01 13:26] LABS: Amorphous Sediment Urine 1+; Bacteria Urine Occasional (0-1); Culture Indicated Urine Specimen Cultured; Hyaline Casts Urine 1-5/LPF; Mucus Urine 1+ (Negative); RBC Urine 0-1/HPF (0-5/HPF); Squamous Epithelial Cell Urine 1-5 /HPF (0-5/HPF); Urine Volume 10mL (spun); WBC Urine 5-10/HPF (0-5/HPF)
== END ==
PROVIDERS: PCP Internal Medicine; Visit Provider Nurse Practitioner Family
DX: N39.0 Urinary tract infection, site not specified (principal)
CPT/HCPCS: 81001; 87086

== ENCOUNTER → 2023-08-06 19:50 | Outpatient (ROUT) | payer OTHER, SELFPAY ==
[2023-08-06 20:03] LABS: Appearance Urine UA CLEAR; Bilirubin Urine UA NEGATIVE (NEGATIVE); Color Urine UA YELLOW; Glucose Urine UA NEGATIVE (Negative); Ketones Urine UA NEGATIVE (NEGATIVE); Leukocyte Esterase Urine UA TRACE (NEGATIVE); Nitrite Urine UA NEGATIVE (Negative); Occult Blood Urine UA 1+ (Negative); Protein Urine UA NEGATIVE (Negative); Specific Gravity Urine UA >=1.030 (1.000-1.035); Urobilinogen Urine UA 0.2 E.U./dL (0.2)
[2023-08-06 20:30] LABS: Bacteria Urine Occasional (0-1); Calcium Oxalate Crystals Urine Occasional; RBC Urine 0-1/HPF (0-5/HPF); Squamous Epithelial Cell Urine 0-1 /HPF (0-5/HPF); Uric Acid Crystals Urine Occasional; Urine Volume 10mL (spun); WBC Urine 1-5/HPF (0-5/HPF)
[2023-08-06 20:31] LABS: Culture Indicated Urine Specimen Cultured
== END ==
PROVIDERS: PCP Internal Medicine; Visit Provider Internal Medicine
DX: N39.0 Urinary tract infection, site not specified (principal)
CPT/HCPCS: 81001; 87086

== ENCOUNTER → 2023-08-25 06:07 | Outpatient (ROUT) | payer OTHER, SELFPAY ==
[2023-08-25 08:11] LABS: Add Manual Diff / Slide Review NO; Basophils Absolute Auto 0 /uL (0-100); Basophils Percent Auto 0.7 % (0-2); Eosinophils Absolute Auto 300 /uL (0-450); Eosinophils Percent Auto 5.2 % (2-4); Hematocrit 32.4 % (36-46); Hemoglobin 10.9 g/dL (12.0-16.0); Lymphocytes Absolute Auto 1800 /uL (1100-4500); Lymphocytes Percent Auto 35.1 % (25-40); Mean Corpuscular HGB Conc 33.8 % (30-36); Mean Corpuscular Hemoglobin 31.6 PG (26-34); Mean Corpuscular Volume 93.4 fL (80-100); Monocytes Absolute Auto 400 /uL (0-900); Monocytes Percent Auto 7.7 % (3-14); Neutrophils Absolute Auto 2700 /uL (1500-7000); Neutrophils Percent Auto 51.3 % (50-75); Platelet Count 233 X10^3/uL (150-400); Red Blood Cell Count 3.47 X10^6/uL (4.0-5.2); Red Cell Distribution Width 14.7 % (11.6-14.8); White Blood Cell Count 5.2 X10^3/uL (4.5-11.0)
[2023-08-25 08:36] LABS: Alanine Aminotransferase 13 IU/L (<35); Albumin 3.3 g/dL (3.5-5.0); Albumin Globulin Ratio 1.3 (1.0-2.8); Alkaline Phosphatase 98 U/L (38-126); Aspartate Aminotransferase 20 IU/L (14-36); BUN Creatinine Ratio 21.7 (6-22); Bilirubin Total 0.4 mg/dL (0.2-1.3); Blood Urea Nitrogen 13 mg/dL (7-17); Carbon Dioxide 26 mmol/L (22-32); Chloride 109 mmol/L (98-107); Estimated Glomerular Filt Rate > 60 mL/min (>60); Globulin 2.6 g/dL (1.7-4.1); Glucose 80 mg/dL (80-110); HEMOLYSIS < 15 (0-50); Potassium 4.1 mmol/L (3.4-5.1); Sodium 139 mmol/L (137-145); Total Protein 5.9 g/dL (6.3-8.2)
[2023-08-25 08:54] LABS: Thyroid Stimulating Hormone 1.46 uIU/mL (0.47-4.68)
[2023-08-25 08:56] LABS: Carcinoembryonic Antigen 2.7 ng/mL (0.1-3.0)
== END ==
PROVIDERS: PCP Internal Medicine; Visit Provider Nurse Practitioner Family
DX: R19.7 Diarrhea, unspecified (principal); C18.9 Malignant neoplasm of colon, unspecified
CPT/HCPCS: 36415; 80053; 82378; 84443; 85025

== ENCOUNTER → 2023-09-01 06:15 | Outpatient (ROUT) | payer OTHER, SELFPAY ==
[2023-09-01 07:41] LABS: BUN Creatinine Ratio 25.4 (6-22); Blood Urea Nitrogen 15 mg/dL (7-17); Calcium 9.2 mg/dL (8.4-10.2); Carbon Dioxide 27 mmol/L (22-32); Chloride 108 mmol/L (98-107); Estimated Glomerular Filt Rate > 60 mL/min (>60); Glucose 78 mg/dL (80-110); HEMOLYSIS < 15 (0-50); Potassium 4.4 mmol/L (3.4-5.1); Sodium 140 mmol/L (137-145)
== END ==
PROVIDERS: PCP Internal Medicine; Visit Provider Urology
DX: N28.9 Disorder of kidney and ureter, unspecified (principal)
CPT/HCPCS: 36415; 80048

== ENCOUNTER → 2023-09-02 13:36 | Outpatient (CLI) | payer OTHER, SELFPAY ==
--- NOTE | 2023-09-02 13:37 | DI.CT.S_ITS ---
PROCEDURE: CT ABDOMEN RENAL PROTOCOL INDICATIONS: Follow-up right lower pole lesion TECHNIQUE: Optional 5 mm thick noncontrast images acquired from the diaphragm to the iliac crests. After the administration of intravenous contrast, 5 mm thick images again acquired from the diaphragm to the iliac crests in the arterial and urographic phases. 5 mm thick coronal and sagittal reformats were then acquired. For radiation dose reduction, the following was used: automated exposure control, adjustment of mA and/or kV according to patient size. COMPARISON: [facility], CT, ABDOMEN/PELVIS WITH CONTRAST, 10/28/2009, 12:49. [facility], CT, CT ABDOMEN RENAL PROTOCOL, 08/28/2022, 14:25. [facility], CT, CT ABDOMEN RENAL PROTOCOL, 02/26/2023, 14:20. FINDINGS: Image quality: Diagnostic. Kidneys and Ureters: Right kidney inferior pole mass measuring 1.9 x 1.1 cm, (536), previously 1.9 x 1.2 cm, and more remotely 1.6 x 1.2 cm on 01/12/2017, and more remotely 1.4 x 1 cm in 2009. There is mild enhancement. No hydronephrosis. No kidney stones. Cyst in the left kidney measuring 4 8 cm. OTHER: Lower chest: Left breast inferior medial quadrant nodule measuring 1.3 cm, (3/16), similar to 2017. Liver: Benign hemangioma at the dome of the liver measuring 2.5 cm, (3/9) Gallbladder: No radiopaque gallstones or wall thickening. Biliary ducts: No biliary dilation. Pancreas: No ductal dilation. Small cyst in the pancreatic neck measuring 1 cm, (3/21) previously 1.1 cm on 08/28/2022 Spleen: Size is within normal limits. Adrenal Glands: No adrenal nodules. Stomach and Bowel: Normal colonic caliber, without significant wall thickening. Diverticulosis. Peritoneum: No abnormal intraperitoneal fluid. No free air. Ventral Wall: No hernia. Abdominal Nodes: No retroperitoneal or mesenteric adenopathy by size criteria. Vessels: Aorta and inferior vena cava are normal in size. Bones: No aggressive osseous abnormality. T11 compression fracture is unchanged. L1 compression fracture which is new in the interval compared to 02/26/2023. IMPRESSION: 1. Right kidney inferior pole indolent mass measuring 1.9 cm is unchanged compared to February 2023. The lesion is slightly increased in size compared to 2009 where it measured 1.4 cm. Follow-up imaging could be considered. 2. No kidney stones. No hydronephrosis. 3. New L1 compression fracture in the interval compared to February 2023. 4. Small cyst in the pancreas measuring 1 cm is stable. Follow-up imaging is not required given its small size and patient's age. Dictated by: Christiano Adan M.D. on 09/02/2023 at 20:18 Approved by: Christiano Adan M.D. on 09/02/2023 at 20:37
== END ==
LOC: CT 13:36
PROVIDERS: PCP Internal Medicine; Referring Provider Urology; Visit Provider Urology
DX: N28.1 Cyst of kidney, acquired (principal); N28.9 Disorder of kidney and ureter, unspecified; N63.24 Unspecified lump in the left breast, lower inner quadrant; D18.09 Hemangioma of other sites; K86.2 Cyst of pancreas; M48.56XA Collapsed vertebra, not elsewhere classified, lumbar region, initial encounter for fracture
CPT/HCPCS: 74170; Q9967

== ENCOUNTER → 2023-09-03 14:54 | Outpatient (ROUT) | payer OTHER, SELFPAY ==
[2023-09-03 15:57] LABS: Appearance Urine UA CLEAR; Bilirubin Urine UA NEGATIVE (NEGATIVE); Color Urine UA YELLOW; Glucose Urine UA NEGATIVE (Negative); Ketones Urine UA NEGATIVE (NEGATIVE); Leukocyte Esterase Urine UA NEGATIVE (NEGATIVE); Nitrite Urine UA NEGATIVE (Negative); Occult Blood Urine UA TRACE-INTACT (Negative); Protein Urine UA NEGATIVE (Negative); Urobilinogen Urine UA 0.2 E.U./dL (0.2)
[2023-09-03 17:00] LABS: Bacteria Urine Few (2-10); Culture Indicated Urine Cult Not Indicated; Hyaline Casts Urine 5-10/LPF; RBC Urine 0-1/HPF (0-5/HPF); Squamous Epithelial Cell Urine 0-1 /HPF (0-5/HPF); Urine Volume 10mL (spun); WBC Urine 0-1/HPF (0-5/HPF)
== END ==
PROVIDERS: PCP Internal Medicine; Visit Provider Nurse Practitioner Family
DX: Z13.89 Encounter for screening for other disorder (principal)
CPT/HCPCS: 81001

== ENCOUNTER → 2023-09-07 13:06 | Outpatient (CLI) | payer OTHER, SELFPAY | PROVIDERS: PCP Internal Medicine; Visit Provider Urology | DX: N39.0 Urinary tract infection, site not specified (principal); R31.29 Other microscopic hematuria; N28.9 Disorder of kidney and ureter, unspecified; Z87.440 Personal history of urinary (tract) infections | CPT/HCPCS: 81002; 87086; 99213 ==

== ENCOUNTER → 2023-09-15 13:37 | Outpatient (CLI) | payer OTHER, SELFPAY | PROVIDERS: PCP Internal Medicine; Visit Provider Urology | DX: Z87.440 Personal history of urinary (tract) infections (principal) | CPT/HCPCS: 87086 ==

== ENCOUNTER → 2023-11-04 16:39 | Outpatient (ROUT) | payer OTHER, SELFPAY ==
[2023-11-04 17:08] LABS: Bilirubin Urine UA NEGATIVE (NEGATIVE); Color Urine UA YELLOW; Glucose Urine UA NEGATIVE (Negative); Ketones Urine UA TRACE (NEGATIVE); Leukocyte Esterase Urine UA TRACE (NEGATIVE); Nitrite Urine UA NEGATIVE (Negative); Occult Blood Urine UA NEGATIVE (Negative); Protein Urine UA NEGATIVE (Negative); Specific Gravity Urine UA >=1.030 (1.000-1.035); Urobilinogen Urine UA 0.2 E.U./dL (0.2)
[2023-11-04 17:15] LABS: Appearance Urine UA SL CLOUDY
[2023-11-04 17:17] LABS: Bacteria Urine Moderate (10-30); RBC Urine None Seen (0-5/HPF); Squamous Epithelial Cell Urine 1-5 /HPF (0-5/HPF); Urine Volume 10mL (spun); WBC Urine 0-1/HPF (0-5/HPF)
[2023-11-04 17:18] LABS: Calcium Oxalate Crystals Urine Moderate; Culture Indicated Urine Specimen Cultured; Mucus Urine 3+ (Negative)
== END ==
PROVIDERS: PCP Internal Medicine; Visit Provider Internal Medicine
DX: N39.0 Urinary tract infection, site not specified (principal)
CPT/HCPCS: 81001; 87086

== ENCOUNTER → 2024-02-23 12:53 | Outpatient (CLI) | payer OTHER, SELFPAY ==
--- NOTE | 2024-02-23 12:55 | DI.CT.S_ITS ---
PROCEDURE: CT ABDOMEN RENAL PROTOCOL INDICATIONS: Renal mass TECHNIQUE: 5 mm thick noncontrast images acquired from the diaphragm to the iliac crests. After the administration of intravenous contrast, 5 mm thick images again acquired from the diaphragm to the iliac crests in the arterial and urographic phases. 5 mm thick coronal and sagittal reformats were then acquired. For radiation dose reduction, the following was used: automated exposure control, adjustment of mA and/or kV according to patient size. COMPARISON: [facility], CT, CT ABDOMEN RENAL PROTOCOL, 09/02/2023, 13:47. FINDINGS: Image quality: Diagnostic. Lower chest: Bibasilar atelectasis. No pleural effusion. Nodule in the medial left breast is unchanged. Liver: Small hemangioma at the dome of the liver is unchanged. Gallbladder: No radiopaque gallstones or wall thickening. Biliary ducts: No biliary dilation. Pancreas: No ductal dilation. Cyst in the body of the pancreas measuring 1.1 cm, (3/18), unchanged, and more remotely 0.8 cm in 2021. Spleen: Size is within normal limits. Adrenal Glands: No adrenal nodules. Kidneys and Ureters: No hydronephrosis. Right kidney inferior pole exophytic lesion measuring 1.8 x 1.2 cm, (3/32), unchanged, and more remotely 1.8 x 1.1 cm in 2021, and 1.6 x 1.2 in 2017. There is internal enhancement. Benign cyst in the left kidney measuring 4.6 cm. Stomach and Bowel: Normal colonic caliber, without significant wall thickening. Diverticulosis. No dilated loops of small bowel. Peritoneum: No abnormal intraperitoneal fluid. No free air. Ventral Wall: No hernia. Abdominal Nodes: No retroperitoneal or mesenteric adenopathy by size criteria. Vessels: Aorta and inferior vena cava are normal in size. Bones: No aggressive osseous abnormality. T11 and L1 compression fractures are unchanged. IMPRESSION: 1. Right kidney inferior pole lesion measuring 1.8 cm is unchanged. Slightly increased in size compared to 2017. Consistent with a indolent neoplasm. 2. No hydronephrosis. No kidney stones. Dictated by: Christiano Adan M.D. on 02/23/2024 at 17:34 Approved by: Christiano Adan M.D. on 02/23/2024 at 17:51
[2024-02-23 13:41] LABS: Estimated Glomerular Filt Rate > 60 mL/min (>60)
== END ==
PROVIDERS: PCP Internal Medicine; Referring Provider Urology; Visit Provider Urology
DX: N28.9 Disorder of kidney and ureter, unspecified (principal); K86.2 Cyst of pancreas; D18.09 Hemangioma of other sites; N28.1 Cyst of kidney, acquired
CPT/HCPCS: 36415; 74170; 82565; Q9967

== ENCOUNTER → 2024-03-08 13:12 | Outpatient (CLI) | payer OTHER, SELFPAY | PROVIDERS: PCP Internal Medicine; Visit Provider Urology | DX: Z87.440 Personal history of urinary (tract) infections (principal) | CPT/HCPCS: 87086 ==

== ENCOUNTER → 2024-05-18 08:46 | Outpatient (CLI) | payer OTHER, SELFPAY ==
[2024-05-18 09:35] LABS: Influenza A - CEPHEID Flu A NEGATIVE (NEGATIVE); Influenza B - CEPHEID Flu B NEGATIVE (NEGATIVE); Respiratory Syncytial Virus Negative (Negative)
[2024-05-18 09:39] LABS: COVID-19 CEPHEID 4-PLEX PCR Negative (Negative)
== END ==
PROVIDERS: PCP Internal Medicine; Visit Provider Physician Assistant Medical
DX: R05.1 Acute cough (principal)
CPT/HCPCS: 0241U; 87070

== ENCOUNTER → 2024-07-07 13:13 | Outpatient (ROUT) | payer OTHER, SELFPAY ==
[2024-07-07 13:23] LABS: Appearance Urine UA CLEAR; Bilirubin Urine UA NEGATIVE (NEGATIVE); Color Urine UA YELLOW; Glucose Urine UA NEGATIVE (Negative); Ketones Urine UA NEGATIVE (NEGATIVE); Leukocyte Esterase Urine UA 1+ (NEGATIVE); Nitrite Urine UA NEGATIVE (Negative); Occult Blood Urine UA 1+ (Negative); Protein Urine UA NEGATIVE (Negative); Specific Gravity Urine UA 1.015 (1.000-1.035); Urobilinogen Urine UA 0.2 E.U./dL (0.2)
[2024-07-07 13:28] LABS: pH Urine UA 5.5 (4.5-8.0)
[2024-07-07 13:30] LABS: Bacteria Urine Few (2-10); Culture Indicated Urine Specimen Cultured; RBC Urine 1-5/HPF (0-5/HPF); Squamous Epithelial Cell Urine 1-5 /HPF (0-5/HPF); Urine Volume 10mL (spun); WBC Urine 10-30/HPF (0-5/HPF)
== END ==
PROVIDERS: Visit Provider Nurse Practitioner Family
DX: N39.0 Urinary tract infection, site not specified (principal)
CPT/HCPCS: 81001; 87086

== ENCOUNTER → 2024-08-28 12:19 | Outpatient (CLI) | payer OTHER, SELFPAY ==
--- NOTE | 2024-08-28 12:20 | DI.CT.S_ITS ---
PROCEDURE: CT ABDOMEN RENAL PROTOCOL INDICATIONS: Follow-up right renal lesion TECHNIQUE: Optional 5 mm thick noncontrast images acquired from the diaphragm to the iliac crests. After the administration of intravenous contrast, 5 mm thick images again acquired from the diaphragm to the iliac crests in the arterial and urographic phases. 5 mm thick coronal and sagittal reformats were then acquired. For radiation dose reduction, the following was used: automated exposure control, adjustment of mA and/or kV according to patient size. COMPARISON: [facility], CT, CT ABDOMEN RENAL PROTOCOL, 02/23/2024, 14:21. [facility], CT, CT ABDOMEN RENAL PROTOCOL, 08/28/2022, 14:25. FINDINGS: Image quality: Diagnostic Lower chest: Basal atelectasis/scarring. Normal heart size. Coronary calcifications. Liver: Unremarkable. Similar segment 7 hemangioma Gallbladder and biliary system: Unremarkable, nondilated Pancreas: Bilobed cyst in the posterior body of the pancreas is slightly larger, now measuring 1.7 x 1.1 cm. There are suspected thin enhancing septations. No ductal dilation. Spleen: Nonenlarged Adrenals: No discrete nodules Kidneys: Scattered renal cysts are present. Left inferior pole lesion is mildly enhancing measuring up to 1.7 cm. This is similar compared to more recent imaging, but slowly enlarged compared to more remote images. The right renal vein is patent. Vessels and lymph nodes: Main portal vein appears patent. Atherosclerotic calcifications. No abdominal aortic aneurysm. Bowel and peritoneum: No small bowel obstruction. Colonic diverticula. No pathologic ascites Body wall: Unremarkable Bones: No aggressive appearing osseous abnormality. Multiple levels of vertebral body height loss at T11 and L1 again seen. IMPRESSION: Right inferior pole 1.7 cm low level enhancing lesion is suspicious for indolent neoplasm, stable compared to recent priors, slightly enlarged compared to remote images. Posterior pancreatic body bilobed cystic lesion measures up to 1.7 x 1.1 cm. This is slightly larger than prior. Differential includes IPMN. Pancreas protocol MRI can further evaluate at clinical discretion. Other findings above. Dictated by: Aftab Oconnell M.D. on 08/28/2024 at 14:20 Approved by: Aftab Oconnell M.D. on 08/28/2024 at 14:27
[2024-08-28 12:47] LABS: Estimated Glomerular Filt Rate > 60 mL/min (>60)
== END ==
PROVIDERS: Referring Provider Urology; Visit Provider Urology
DX: N28.9 Disorder of kidney and ureter, unspecified (principal); K86.2 Cyst of pancreas; N28.1 Cyst of kidney, acquired; K57.90 Diverticulosis of intestine, part unspecified, without perforation or abscess without bleeding; D18.03 Hemangioma of intra-abdominal structures; I25.10 Atherosclerotic heart disease of native coronary artery without angina pectoris
CPT/HCPCS: 36415; 74170; 82565; Q9967

== ENCOUNTER → 2024-09-06 06:26 | Outpatient (ROUT) | payer OTHER, SELFPAY ==
[2024-09-06 08:36] LABS: BUN Creatinine Ratio 24.6 (6-22); Blood Urea Nitrogen 16 mg/dL (7-17); Calcium 8.7 mg/dL (8.4-10.2); Carbon Dioxide 26 mmol/L (22-32); Chloride 108 mmol/L (98-107); Estimated Glomerular Filt Rate > 60 mL/min (>60); Glucose 84 mg/dL (80-110); HEMOLYSIS < 15 (0-50); Potassium 4.2 mmol/L (3.4-5.1); Sodium 140 mmol/L (137-145)
== END ==
PROVIDERS: PCP Family Medicine; Visit Provider Urology
DX: N28.9 Disorder of kidney and ureter, unspecified (principal)
CPT/HCPCS: 36415; 80048

== ENCOUNTER → 2024-09-06 14:44 | Outpatient (CLI) | payer OTHER, SELFPAY | PROVIDERS: PCP Family Medicine; Visit Provider Urology | DX: Z87.440 Personal history of urinary (tract) infections (principal) | CPT/HCPCS: 36415; 80048; 87077; 87086; 87147 ==

== ENCOUNTER → 2024-11-02 10:55 | Outpatient (ROUT) | payer OTHER, SELFPAY | LOC: LAB 10:58 | PROVIDERS: PCP Family Medicine; Visit Provider Nurse Practitioner Family | DX: N39.0 Urinary tract infection, site not specified (principal) | CPT/HCPCS: 87086 ==

== ENCOUNTER → 2024-11-16 14:06 | Outpatient (CLI) | payer OTHER, SELFPAY ==
[2024-11-16 14:58] LABS: Add Manual Diff / Slide Review NO; Basophils Absolute Auto 0 /uL (0-100); Basophils Percent Auto 0.1 % (0-2); Eosinophils Absolute Auto 400 /uL (0-450); Eosinophils Percent Auto 5.4 % (2-4); Hematocrit 37.6 % (36-46); Hemoglobin 12.5 g/dL (12.0-16.0); Lymphocytes Absolute Auto 2100 /uL (1100-4500); Lymphocytes Percent Auto 28.4 % (25-40); Mean Corpuscular HGB Conc 33.2 % (30-36); Mean Corpuscular Volume 90.5 fL (80-100); Monocytes Absolute Auto 400 /uL (0-900); Monocytes Percent Auto 5.7 % (3-14); Neutrophils Absolute Auto 4500 /uL (1500-7000); Neutrophils Percent Auto 60.4 % (50-75); Platelet Count 207 X10^3/uL (150-400); Red Blood Cell Count 4.16 X10^6/uL (4.0-5.2); Red Cell Distribution Width 15.6 % (11.6-14.8); White Blood Cell Count 7.4 X10^3/uL (4.5-11.0)
[2024-11-16 15:27] LABS: Alanine Aminotransferase 12 IU/L (<35); Albumin 3.9 g/dL (3.5-5.0); Albumin Globulin Ratio 1.6 (1.0-2.8); Alkaline Phosphatase 96 U/L (38-126); Aspartate Aminotransferase 19 IU/L (14-36); BUN Creatinine Ratio 24.3 (6-22); Bilirubin Total 0.4 mg/dL (0.2-1.3); Blood Urea Nitrogen 17 mg/dL (7-17); Calcium 9.1 mg/dL (8.4-10.2); Carbon Dioxide 24 mmol/L (22-32); Chloride 108 mmol/L (98-107); Estimated Glomerular Filt Rate > 60 mL/min (>60); Globulin 2.5 g/dL (1.7-4.1); Glucose 120 mg/dL (70-99); HEMOLYSIS < 15 (0-50); Potassium 3.9 mmol/L (3.4-5.1); Sodium 142 mmol/L (137-145); Total Protein 6.4 g/dL (6.3-8.2)
[2024-11-16 15:59] LABS: TSH w/ Reflex to FT4 0.87 uIU/mL (0.47-4.68)
== END ==
PROVIDERS: PCP Family Medicine; Referring Provider Family Medicine; Visit Provider Family Medicine
DX: K52.9 Noninfective gastroenteritis and colitis, unspecified (principal)
CPT/HCPCS: 36415; 80053; 84443; 85025

== ENCOUNTER → 2024-12-11 13:54 | Outpatient (CLI) | payer OTHER, SELFPAY ==
--- NOTE | 2024-12-11 13:55 | DI.ECHO.S_ITS ---
[facility] : : [address] : : [place] : : [id number] : : Phone: [phone] Echocardiogram Report + + :Name: LISY TONY Study Date: 12/11/2024 Height: 62 in : :[facility] ReadingLocation: Weight: 120 lb : : Gender: Female BSA: 1.5 m2 : :: 1935 Age: 89 yrs BP: 122/65 mmHg: :Reason For Study: Bradycardia : :Ordering Physician: MISAEL, : :TEAGAN Performed By: Zechariah Briceño : :Referring: TEAGAN DOUGLAS : + + Interpretation Summary Normal left ventricle size with ejection fraction 65-70%. Diastolic parameters suggest a relaxation abnormality of the left ventricle, consistent with probable normal filling pressures. No significant valvular abnormality. Comparison is made with the echocardiogram of 05/10/2012, no significant change. Procedure: A two-dimensional transthoracic echocardiogram with color flow and Doppler was performed. The study quality was technically adequate. Comparison is made with the echocardiogram of 05/10/2012. The heart rate ranged between 68-73 bpm during the study. Left Ventricle: The left ventricle is normal in size. There is normal left ventricular wall thickness. The ejection fraction is estimated to be 65-70%. There are no focal wall motion abnormalities. Diastolic parameters suggest a relaxation abnormality of the left ventricle, consistent with probable normal filling pressures. Right Ventricle: The right ventricle is normal in size and function. Atria: The left atrial size is normal. The right atrium is normal in size. There is no Doppler evidence for an interatrial shunt. Mitral Valve: The mitral valve leaflets appear to open well. There is no mitral valve stenosis. There is trace mitral regurgitation. Aortic Valve: The aortic valve is trileaflet. There is mild aortic valve sclerosis. There is no aortic valve stenosis. No aortic regurgitation is present. Tricuspid Valve: The tricuspid valve is not well visualized, but is grossly normal. There is trace tricuspid regurgitation. The right ventricular systolic pressure is estimated to be at least 24 mmHg based on an estimated right atrial pressure of 3 mm Hg. Pulmonic Valve: The pulmonic valve is not well seen, but is grossly normal. There is mild pulmonic regurgitation. Great Vessels: The aortic root is normal size. The ascending aorta is normal in size. The aortic arch could not be visualized. The IVC is of normal diameter and collapses greater than 50% with a sniff. This suggests a low right atrial pressure of 3 mm Hg. Pericardium/ Pleura There is no pericardial effusion. MMode/2D Measurements & Calculations LVIDd: 4.3 cm LVOT diam: 2.1 cm LVIDs: 2.8 cm Ao root diam: 3.4 cm FS: 35.2 % asc Aorta Diam: 3.5 cm IVSd: 0.95 cm LVPWd: 0.93 cm LV bustos. diameter/BSA (cm/m^2): 2.8 LV sys. diameter/BSA (cm/m^2): 1.8 LA dimension: 3.5 cm RA long axis: 4.4 cm LA A2 area: 14.4 cm2 RA area: 10.8 cm2 LA A4 area: 17.5 cm2 RA vol: 22.4 ml LA length (vol): 5.2 cm RA : 14.5 ml/m2 LA vol: 40.8 ml IVC diam: 1.3 cm LA vol index: 26.5 ml/m2 RVD1 (basal): 2.7 cm RVD2 (mid): 2.3 cm TAPSE: 1.9 cm Doppler Measurements & Calculations Ao V2 max: 109.2 cm/sec LVOT Max Josh: 105.4 cm/sec Ao V2 mean: 80.4 cm/sec LV V1 max P.4 mmHg Ao max P.8 mmHg LV V1 VTI: 22.2 cm Ao mean P.8 mmHg ARINA(I,D): 3.4 cm2 Ao V2 VTI: 21.8 cm ARINA(V,D): 3.2 cm2 sev ratio: 1.0 ARINA indexed to BSA (cm^2/m^2): 2.2 MV E max josh: 81.2 cm/sec TR max josh: 227.6 cm/sec MV A max josh: 106.3 cm/sec TR max P.7 mmHg MV E/A: 0.76 PA V2 max: 95.2 cm/sec Med Peak E' Josh: 5.6 cm/sec PA V2 mean: 69.9 cm/sec E/E' med: 14.5 PA mean P.1 mmHg Lat Peak E' Josh: 5.9 cm/sec PA pr(Accel): 36.6 mmHg E/E' lat: 13.7 E/e' average: 14.1 MV dec time: 0.20 sec SV(LVOT): 73.4 ml Electronically signed by: Jaki King on Reading Physician:12/11/2024 04:01 PM
== END ==
LOC: ECHO 13:54
PROVIDERS: PCP Family Medicine; Referring Provider Family Medicine; Visit Provider Family Medicine
DX: I35.8 Other nonrheumatic aortic valve disorders (principal); I37.1 Nonrheumatic pulmonary valve insufficiency; R00.1 Bradycardia, unspecified
CPT/HCPCS: 93306

== ENCOUNTER → 2024-12-18 13:39 | Outpatient (CLI) | payer OTHER, SELFPAY | LOC: CAR 13:40 | PROVIDERS: PCP Family Medicine; Referring Provider Family Medicine; Visit Provider Family Medicine | DX: R00.1 Bradycardia, unspecified (principal) | CPT/HCPCS: 93246 ==

== ENCOUNTER → 2025-02-08 11:55 | Outpatient (ROUT) | payer OTHER, SELFPAY ==
[2025-02-08 12:04] LABS: Appearance Urine UA SL CLOUDY; Bilirubin Urine UA NEGATIVE (NEGATIVE); Color Urine UA YELLOW; Glucose Urine UA NEGATIVE (Negative); Ketones Urine UA NEGATIVE (NEGATIVE); Leukocyte Esterase Urine UA 2+ (NEGATIVE); Nitrite Urine UA NEGATIVE (Negative); Occult Blood Urine UA 1+ (Negative); Protein Urine UA NEGATIVE (Negative); Specific Gravity Urine UA 1.015 (1.000-1.035); Urobilinogen Urine UA 0.2 E.U./dL (0.2)
[2025-02-08 12:05] LABS: pH Urine UA 5.0 (4.5-8.0)
[2025-02-08 12:08] LABS: Culture Indicated Urine Specimen Cultured
== END ==
PROVIDERS: PCP Family Medicine; Visit Provider Family Medicine
DX: N39.0 Urinary tract infection, site not specified (principal)
CPT/HCPCS: 81001; 87077; 87086; 87186

== ENCOUNTER → 2025-02-14 06:30 | Outpatient (ROUT) | payer OTHER, SELFPAY ==
[2025-02-14 08:28] LABS: Estimated Glomerular Filt Rate > 60 mL/min (>60)
== END ==
PROVIDERS: PCP Family Medicine; Visit Provider Urology
DX: N28.9 Disorder of kidney and ureter, unspecified (principal)
CPT/HCPCS: 36415; 82565

== ENCOUNTER → 2025-02-14 12:50 | Outpatient (CLI) | payer OTHER, SELFPAY ==
--- NOTE | 2025-02-14 12:51 | DI.CT.S_ITS ---
PROCEDURE: CT ABDOMEN RENAL PROTOCOL INDICATIONS: Right renal lesion TECHNIQUE: Optional 5 mm thick noncontrast images acquired from the diaphragm to the iliac crests. After the administration of intravenous contrast, 5 mm thick images again acquired from the diaphragm to the iliac crests in the arterial and urographic phases. 5 mm thick coronal and sagittal reformats were then acquired. For radiation dose reduction, the following was used: automated exposure control, adjustment of mA and/or kV according to patient size. COMPARISON: [facility], CT, CT ABDOMEN RENAL PROTOCOL, 08/28/2024, 13:04. FINDINGS: Image quality: Diagnostic. Kidneys and Ureters: There is a an exophytic, 1.8 x 1.4 by 1.5 cm lesion on the inferior pole of the right kidney which demonstrates intermediate density on the noncontrast sequence, followed by progressive enhancement on the delayed sequences. The mass does not extend through the renal fascia, does not contact the ureter or adjacent structures. OTHER: Lower chest: Incidental note of distal main pulmonary artery embolus. No evidence of heart strain or pulmonary infarct. Liver: Stable 2.3 cm hemangioma in segment 7. Gallbladder: No radiopaque gallstones or wall thickening. Biliary ducts: No biliary dilation. Pancreas: No ductal dilation. Stable 1.6 cm cystic lesion in the pancreatic body. Smaller cystic lesions are present. Spleen: Size is within normal limits. Adrenal Glands: No adrenal nodules. Stomach and Bowel: Normal colonic caliber, without significant wall thickening. Colonic diverticulosis without evidence of diverticulitis. Peritoneum: No abnormal intraperitoneal fluid. No free air. Ventral Wall: No hernia. Abdominal Nodes: No retroperitoneal or mesenteric adenopathy by size criteria. Vessels: Aorta and inferior vena cava are normal in size. Bones: No aggressive osseous abnormality. Stable compression deformities of the T11 and L1 vertebral bodies. IMPRESSION: Incidental note of a distal right main pulmonary artery embolus, without evidence of pulmonary infarct or right heart strain. 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 Left breast nodularity measuring 1.3 x 0.9 cm. Please ensure the patient is up-to-date on mammography. Stable cystic lesions in the pancreatic body, largest measuring 1.6 cm. 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 Attention on follow-up versus pancreatic mass MRI can be considered. Dictated by: Shaji Acevedo M.D. on 02/14/2025 at 14:47 Approved by: Shaji Acevedo M.D. on 02/14/2025 at 14:54
== END ==
PROVIDERS: PCP Family Medicine; Referring Provider Urology; Visit Provider Urology
DX: N28.9 Disorder of kidney and ureter, unspecified (principal); I26.99 Other pulmonary embolism without acute cor pulmonale; R92.8 Other abnormal and inconclusive findings on diagnostic imaging of breast; K86.9 Disease of pancreas, unspecified
CPT/HCPCS: 74170; Q9967

== ENCOUNTER → 2025-03-16 13:44 | Outpatient (CLI) | payer OTHER, SELFPAY ==
--- NOTE | 2025-03-16 13:45 | DI.MG.S_ITS ---
MM diagnostic mammo BI: 03/16/2025. BI-RADS: 2 CLINICAL: 89-year old female for bilateral diagnostic mammogram and left diagnostic breast ultrasound. No Tyrer-Cuzick risk score calculation due to patient's age being over 85 years old. No personal or first-degree family history of breast cancer. The patient presents for evaluation of a finding in the left breast on CT 02/14/2025. PRIOR EXAMS Mammogram 04/25/2015, CT 02/14/2025. MAMMOGRAPHY TECHNIQUE: 2D and 3D (tomosynthesis) digital mammographic views obtained, with additional images as needed for full coverage. Current study was also evaluated with a Computer Aided Detection (CAD) system. DENSITY C. The breasts are heterogeneously dense, which may obscure small masses. MAMMOGRAPHY FINDINGS Right: No suspicious mass, asymmetry, microcalcification, or other abnormality seen. Left: Lower Inner at 7:00, Middle depth, measuring 1.1cm: Correlating with CT findings there is a circumscribed, oval mass present with associated calcifications. This finding is stable on mammogram dating back to 04/25/2015 and is consistent with a benign etiology. IMPRESSION: Right * No evidence of malignancy. Left * No evidence of malignancy with benign findings. RECOMMENDATIONS Bilateral * Annual screening mammography. COMMENTS: Findings and recommendations were conveyed to the patient during today's evaluation. OVERALL ASSESSMENT CATEGORY BI-RADS-2: Benign. The [employer] recommends annual screening mammography beginning at age 40 for women with average risk of breast cancer. ELECTRONICALLY SIGNED: Regine Ashley M.D. on 03/16/2025 at 03:07:31 PM PT Interpreting Station ID: [id number]
== END ==
LOC: MAMMO 13:45
PROVIDERS: PCP Family Medicine; Referring Provider Family Medicine; Visit Provider Family Medicine
DX: R92.1 Mammographic calcification found on diagnostic imaging of breast (principal); N63.24 Unspecified lump in the left breast, lower inner quadrant; R92.333 Mammographic heterogeneous density, bilateral breasts
CPT/HCPCS: 77066; G0279

== ENCOUNTER 2025-04-24 12:56 | Emergency (ER) | payer OTHER, SELFPAY ==
[2025-04-24 13:07] VITALS: BP 117/71; PULSE 89; RESP 17; TEMP 36.6; O2SAT 97; BMI 23.2
--- NOTE | 2025-04-24 13:13 | DI.CT.S_ITS ---
PROCEDURE: CT HEAD/BRAIN WO CON INDICATIONS: Fall on thinners TECHNIQUE: Noncontrast 4.5 mm thick angled axial sections acquired from the foramen magnum to the vertex, with coronal and sagittal reformats. For radiation dose reduction, the following was used: automated exposure control, adjustment of mA and/or kV according to patient size. COMPARISON: [facility], CT, CT HEAD/BRAIN WO CON, 01/21/2018, 13:54. FINDINGS: Image quality: Diagnostic. CSF spaces: Basal cisterns are patent. No extra-axial fluid collections. The ventricles are symmetric in size and shape. Brain: No intracranial bleeds or mass effect. There is cerebral volume loss, with resultant ventricular and sulcal prominence. There are periventricular and deep white matter chronic small vessel ischemic changes. There is intracranial internal carotid artery atherosclerosis. Skull and face: Calvarium and visualized facial bones appear intact, without suspicious lesions. Sinuses: Visualized sinuses and mastoids are clear. IMPRESSION: No acute intracranial pathology. Dictated by: Kermit Dorsey M.D. on 04/24/2025 at 14:10 Approved by: Kermit Dorsey M.D. on 04/24/2025 at 14:11
--- NOTE | 2025-04-24 13:13 | DI.CT.S_ITS ---
PROCEDURE: CT CERVICAL SPINE WO CON INDICATIONS: Fall on thinners TECHNIQUE: Noncontrast 3 mm thick sections acquired from the skull base to the T4 level. Sagittal and coronal reformats were then constructed. For radiation dose reduction, the following was used: automated exposure control, adjustment of mA and/or kV according to patient size. COMPARISON: None. FINDINGS: Image quality: Excellent. Bones: No fractures or dislocations. Diffuse osteopenia. Cervical spondylosis. Multilevel facet arthropathy. Visualized superior ribs are intact. Soft tissues: Prevertebral soft tissues are normal in thickness. No paravertebral hematomas. No apical pneumothoraces. IMPRESSION: No displaced fracture or traumatic subluxation. Cervical spondylosis, diffuse osteopenia. Dictated by: Kermit Dorsey M.D. on 04/24/2025 at 14:08 Approved by: Kermit Dorsey M.D. on 04/24/2025 at 14:09
--- NOTE | 2025-04-24 13:13 | DI.CT.S_ITS ---
PROCEDURE: CT LUMBAR SPINE WO CON INDICATIONS: Fall on thinners TECHNIQUE: Noncontrast 3 mm thick sections acquired from the T12 level to the sacrum. Sagittal and coronal reformats were constructed. For radiation dose reduction, the following was used: automated exposure control. COMPARISON: [facility], CT, CT ABDOMEN RENAL PROTOCOL, 02/14/2025, 12:57. FINDINGS: Image quality: Excellent. Bones: There is normal bony alignment. No acute vertebral body compression fractures. A severe T11 compression and a moderate to severe L1 compression are chronic and stable. Diffuse osteopenia. No acute compressions. No suspicious lytic or blastic bony lesions. No pars defects. There is bony retropulsion of the superior endplate of L1 which results in borderline canal stenosis T11-T12. No canal stenosis or foraminal stenosis at other levels. Lower lumbar facet arthropathy. Soft tissues: No retroperitoneal masses or hematomas. Visualized aorta is normal in caliber. IMPRESSION: 1. Likely severe underlying osteoporosis with chronic compressions of T11 and L1. 2. No acute compression fractures. 3. Borderline canal stenosis at T11-T12. No significant canal stenosis or foraminal stenosis at other levels. Dictated by: Kermit Dorsey M.D. on 04/24/2025 at 14:11 Approved by: Kermit Dorsey M.D. on 04/24/2025 at 14:14
--- NOTE | 2025-04-24 16:23 | ED.HEATRA ---
HPI - Head Injury <Ian Nova PA-C - Last Filed: 04/24/25 16:32> General Chief complaint: Trauma Stated complaint: PCP ref fall/thinners + confusion Time Seen by Provider: 04/24/25 13:13 Source: patient and other Mode of arrival: Family Vehicle History of Present Illness HPI Narrative: 89-year-old female with past medical history dementia who lives at the [facility] comes in with her caregiver for assessment status post a unwitnessed fall she suffered earlier today. Patient's caregiver states that the patient reports having fallen before caregiver came onto her shift this morning. The fall was unwitnessed. According to patient, she did not lose consciousness, reports that she is having lower back pain. No other injuries reported by patient. Patient is on Eliquis for a pulmonary embolism. Patient denies fever, chills, chest pain, shortness of breath. Related Data Home Medications ?Medication ?Instructions ?Recorded ?Confirmed nystatin 100,000 unit/gram topical 1 applic topical BID 05/18/24 03/21/25 cream benzonatate 200 mg capsule 200 mg PO BID PRN 09/06/24 03/21/25 diclofenac sodium 1 % topical gel 2 g topical QID 09/06/24 03/21/25 dicyclomine 20 mg tablet 20 mg PO TID 09/06/24 03/21/25 donepezil 5 mg tablet (Aricept) 5 mg PO DAILY 09/06/24 03/21/25 inulin 2 gram chewable tablet g PO 09/06/24 03/21/25 (Fiber Delights) lactase 9,000 unit tablet (Lactaid 9,000 unit PO ONCE 09/06/24 03/21/25 Fast Act) levocetirizine 5 mg tablet 5 mg PO DAILY 09/06/24 03/21/25 loperamide 2 mg capsule 2 mg PO Q6H PRN 09/06/24 03/21/25 ondansetron 4 mg disintegrating 4 mg PO Q8H 09/06/24 03/21/25 tablet povidone (PF) 0.5 % eye drops drp ophthalmic (eye) 09/06/24 03/21/25 (iVizia (PF)) fluoxetine 20 mg capsule 40 mg PO DAILY 09/08/24 03/21/25 dextromethorphan-guaifenesin 10 2 tab-cap PO Q6H PRN 11/16/24 03/21/25 mg-200 mg capsule (Robitussin Cough-Chest Congestion DM) docusate sodium 100 mg capsule 100 mg PO DAILY PRN 11/16/24 03/21/25 apixaban 5 mg tablet (Eliquis) 5 mg PO BID 02/22/25 03/21/25 fluoxetine 40 mg capsule 40 mg PO DAILY 02/22/25 03/21/25 Previous Rx's ?Medication ?Instructions ?Recorded acetaminophen 500 mg tablet 1,000 mg (2 x 500 mg) PO BID #180 09/16/22 (Tylenol Extra Strength) tabs omeprazole 20 mg capsule,delayed 20 mg PO DAILY #30 caps 12/19/24 release tetracycline 500 mg capsule 500 mg PO Q12H #14 caps 02/10/25 cetirizine 10 mg tablet 10 mg PO DAILY #90 tabs 02/16/25 olanzapine 2.5 mg tablet 2.5 mg PO QPM #30 tabs 03/13/25 L.acidophil,salivari-Bifido 2 cap PO DAILY #30 caps 04/10/25 bifidum-Strep thermoph 175 mg capsule lidocaine 4 % topical patch 1 patch topical DAILY PRN pain #10 04/25/25 ea Allergies Allergy/AdvReac Type Severity Reaction Status Date / Time Sulfa (Sulfonamide Allergy Unknown Verified 04/24/25 13:07 Antibiotics) cephalexin AdvReac Intermediate Abdominal Verified 04/24/25 13:07 Pain nitrofurantoin (From AdvReac Intermediate Vomitting/ Verified 04/24/25 13:07 Macrobid) nausea/ all over pain. Review of Systems <Ian Nova PA-C - Last Filed: 04/24/25 16:32> Constitutional Constitutional: Denies chills, Denies fatigue, Denies fever(s), Denies frequent falls, Denies lethargy and Denies weakness Eyes Eyes: Denies change in vision, Denies eye discharge, Denies irritation and Denies loss of vision ENT Ears, Nose, Mouth, and Throat: Denies change in voice, Denies dizziness, Denies neck pain, Denies sore throat and Denies throat swelling Cardiovascular Cardiovascular: Denies chest pain, Denies irregular heart rhythm, Denies lightheadedness, Denies palpitations, Denies dyspnea, Denies dyspnea on exertion and Denies orthopnea Respiratory Respiratory: Denies cough, Denies dyspnea, Denies dyspnea on exertion and Denies wheezing Gastrointestinal Gastrointestinal: Denies abdominal pain, Denies change in bowel habits, Denies diarrhea, Denies nausea and Denies vomiting Musculoskeletal Musculoskeletal: Reports back pain, Denies neck pain and Denies numbness Integumentary/Breasts Skin/Breast: Denies pruritus, Denies erythema, Denies rash and Denies wounds Neurologic Neurologic: Denies behavioral changes, Denies confusion, Denies dizziness, Denies frequent falls, Denies loss of vision, Denies numbness and Denies weakness Psychiatric Psychiatric: Denies anxiety, Denies behavioral changes, Denies confusion, Denies depression, Denies homicidal ideation and Denies suicidal ideation Endocrine Endocrine: Denies fatigue, Denies flushing and Denies palpitations Hematologic/Lymphatic Hematologic/Lymphatic: Denies easy bruising Allergic/Immunologic Allergic/Immunologic: Denies urticaria, Denies throat swelling and Denies wheezing Patient History <Ian Nova PA-C - Last Filed: 04/24/25 16:32> Medical History Left breast mass Pulmonary embolism Bradycardia with 41-50 beats per minute Chronic lower urinary tract infection Dementia Pyuria History of recurrent UTI (urinary tract infection) Postmenopausal atrophic vaginitis Renal lesion Recurrent UTI Constipation Secondhand smoke exposure Caregiver role strain B12 deficiency Insomnia Depression with anxiety Microscopic hematuria Vaginitis, atrophic Cystocele Stress incontinence Acquired absence of other specified parts of digestive tract Family history of diabetes mellitus Family history of malignant neoplasm of bladder nursing home current use of inhaled steroid Other migraine, not intractable, without status migrainosus Major depressive disorder, single episode Personal history of other malignant neoplasm of large intestine Family history of other mental and behavioral disorders Family history of malignant neoplasm of trachea, bronchus and lung Allergic rhinitis Osteoarthritis of left knee Osteopenia Measles Chicken pox Vertigo History of recurrent ear infection Ovarian cyst Diverticular disease Colon polyps Osteoarthritis of wrist Seasonal allergic rhinitis (09/25/14) Surgical History H/O colectomy History of appendectomy Cataract extraction status of right eye Cataract extraction status of left eye S/P hysterectomy Anesthesia Bunion Broken nose History of partial colectomy (~2009) History of cataract removal with insertion of prosthetic lens Status post hysterectomy Family History Brother Age: 86 Cancer Father Cancer Mother Mental health problem Dementia Grandmother Diabetes mellitus Social History marital status: number of children: 2 alcohol intake: current substance use type: does not use Smoking Status: Never smoker alcohol intake frequency: holidays/special occasions only Exam <Ian Nova PA-C - Last Filed: 04/24/25 16:32> Narrative Exam Narrative: Const General:?cooperative, healthy appearing and comfortable HENMT Head:?normal to inspection Ears:?hearing grossly normal bilaterally Nose:?external nose normal Face and sinus:?normal facial exam and sinuses nontender Mouth:?oral mucosae normal Throat:?posterior oropharynx normal Eyes General:?appearance normal, both eyes and all related structures Neck Neck:?normal visual inspection and no lymphadenopathy noted Resp Effort & Inspection:?normal respiratory effort Auscultation:?clear to auscultation bilaterally Cardio Rate:?regular rate Rhythm:?regular rhythm Musculoskeletal No midline tenderness to palpation. No paraspinal tenderness to palpation. Neurovascularly intact. Neuro General:?patient alert, patient awake and patient oriented x3; PERRLA Initial Vital Signs Initial Vital Signs: Vital Signs Temperature 97.8 F 04/24/25 13:07 Pulse Rate 89 04/24/25 13:07 Respiratory Rate 17 04/24/25 13:07 Blood Pressure 117/71 04/24/25 13:07 Pulse Oximetry 97 04/24/25 13:07 Oxygen Delivery Method Room Air 04/24/25 13:07 <Meir Quinonez MD - Last Filed: 04/30/25 09:03> Initial Vital Signs Initial Vital Signs: Vital Signs Temperature 97.8 F 04/24/25 13:07 Pulse Rate 89 04/24/25 13:07 Respiratory Rate 17 04/24/25 13:07 Blood Pressure 117/71 04/24/25 13:07 Pulse Oximetry 97 04/24/25 13:07 Oxygen Delivery Method Room Air 04/24/25 13:07 Course <Ian Nova PA-C - Last Filed: 04/24/25 16:32> Orders Ordered: ED Orders 04/24/25 13:13 CT cervical spine wo con Stat CT head/brain wo con Stat CT lumbar spine wo con Stat Vital Signs Vital signs: Vital Signs - 8 hr 04/24/25 13:07 Temperature 97.8 F Pulse Rate 89 Respiratory Rate 17 Blood Pressure 117/71 Pulse Oximetry 97 Oxygen Delivery Method Room Air <Meir Quinonez MD - Last Filed: 04/30/25 09:03> Orders Ordered: ED Orders 04/24/25 13:13 CT cervical spine wo con Stat CT head/brain wo con Stat CT lumbar spine wo con Stat Vital Signs Vital signs: Vital Signs - 8 hr 04/24/25 13:07 Temperature 97.8 F Pulse Rate 89 Respiratory Rate 17 Blood Pressure 117/71 Pulse Oximetry 97 Oxygen Delivery Method Room Air MDM - Head Injury <Ian Nova PA-C - Last Filed: 04/24/25 16:32> MDM Narrative Medical decision making narrative: 89-year-old female with past medical history dementia who lives at the [facility] comes in with her caregiver for assessment status post a unwitnessed fall she suffered earlier today. CT head and CT C-spine, CT lumbar spine obtained. CT head with no acute intracranial pathology. CT C-spine shows no displaced fracture or traumatic subluxation. CT lumbar spine with no acute fractures. Discussed findings with patient and patient's caregiver. Recommend continuing Tylenol for pain relief. ED return precautions discussed with patient and caregiver. They verbalized understanding. Medical records reviewed: Yes Discharge Plan Departure Patient Disposition: Home Clinical Impression: Fall Qualifiers: Encounter type: initial encounter Qualified Code(s): W19.XXXA - Unspecified fall, initial encounter Instructions: How to Prevent Falls Activity Restrictions/Additional Instructions: You were evaluated in the emergency department today for a fall. Your CT scans were normal. You may continue to take Tylenol for the pain. You may apply lidocaine patches to your back which are available [id number] in drug stores under the trade name Salonpas. Please follow-up with the PCP as soon as possible. Please exercise good fall precautions. Return to the ED if you have worsening symptoms. Prescriptions: No Action nystatin 100,000 unit/gram cream 1 applic topical BID omeprazole 20 mg capsule,delayed release(DR/EC) 20 mg PO DAILY Qty: 30 12RF Rx Instructions: Take 1 capsule each morning tetracycline 500 mg capsule 500 mg PO Q12H Qty: 14 0RF cetirizine 10 mg tablet 10 mg PO DAILY Qty: 90 1RF olanzapine 2.5 mg tablet 2.5 mg PO QPM Qty: 30 2RF L.acidoph,saliva-B.bif-S.therm 175 mg capsule 2 cap PO DAILY Qty: 30 0RF lidocaine 4 % adhesive patch,medicated 1 patch topical DAILY PRN (Reason: pain) Qty: 10 0RF Rx Instructions: OTC patch acetaminophen [Tylenol Extra Strength] 500 mg tablet 1,000 mg PO BID Qty: 180 3RF Robitussin Cough-Chest Vinicius DM 10-200 mg capsule 2 tab-cap PO Q6H PRN fluoxetine 40 mg capsule 40 mg PO DAILY Eliquis 5 mg tablet 5 mg PO BID dicyclomine 20 mg tablet 20 mg PO TID ondansetron 4 mg tablet,disintegrating 4 mg PO Q8H benzonatate 200 mg capsule 200 mg PO BID PRN lactase [Lactaid Fast Act] 9,000 unit tablet 9,000 unit PO ONCE Rx Instructions: administer with meals and/or snacks Fiber Delights 2 gram tablet,chewable PO donepezil [Aricept] 5 mg tablet 5 mg PO DAILY diclofenac sodium 1 % gel 2 g topical QID Rx Instructions: apply to single elbow, wrist or hand; for hand includes palm/fingers/back of hand loperamide 2 mg capsule 2 mg PO Q6H PRN iVizia (PF) 0.5 % drops ophthalmic (eye) levocetirizine 5 mg tablet 5 mg PO DAILY fluoxetine 20 mg capsule 40 mg PO DAILY Rx Instructions: administer in the morning and at noon/midday docusate sodium 100 mg capsule 100 mg PO DAILY PRN Referrals: Ernesto Russell, [Primary Care Provider, Family Practice] Stand Alone Forms: Patient Portal/API ED Sign-out <Meir Quinonez MD - Last Filed: 04/30/25 09:03> Cosign ED Attending Cosalexisature Attestation: I was immediately available in the department for consultation. ?This documentation has been reviewed and I agree with assessment and plan. Supervised by Meir Quinonez MD
== END 2025-04-24 15:22 | disposition home or self-care (01) ==
PROVIDERS: Emergency Provider Student in an Organized Health Care Education/Training Program; PCP Family Medicine
DX: M54.50 Low back pain, unspecified (principal); F03.90 Unspecified dementia, unspecified severity, without behavioral disturbance, psychotic disturbance, mood disturbance, and anxiety; W19.XXXA Unspecified fall, initial encounter; Z79.01 Long term (current) use of anticoagulants
CPT/HCPCS: 70450; 72125; 72131; 99283; 99284